=== PATIENT | male | born 1935 | race Caucasian/White ===

== ENCOUNTER 2022-11-07 10:23 | Outpatient (CLI) | payer MEDICARE, OTHER, SELFPAY ==
[2022-11-07 21:43] LABS: Albumin* 4.2 g/dL (3.3-5.0); Chloride* 106 mmol/L (96-114); Potassium* 4.5 mmol/L (3.6-5.1); Sodium* 142 mmol/L (135-149)
[2022-11-07 21:45] LABS: Carbon Dioxide* 30 mmol/L (20-32); Cholesterol* 167 mg/dL (90-199); Estimated Glomerular Filt Rate 74 ml/min
[2022-11-07 21:46] LABS: Alanine Aminotransferase* 18 U/L (4-50); Alkaline Phosphatase* 93 U/L (40-150); Aspartate Amino Transferase* 28 U/L (12-35); Bilirubin Total* 0.8 mg/dL (0.1-1.5); Blood Urea Nitrogen* 19 mg/dL (7-30); Calcium* 9.1 mg/dL (8.4-10.6); Glucose* 79 mg/dL (60-115); HDL Cholesterol* 60 mg/dL (>=40); LDL Cholesterol Calculated 89 mg/dL (<100); Total Protein* 6.9 g/dL (6.0-8.3); Triglycerides* 90 mg/dL (40-149)
[2022-11-07 22:30] LABS: Vitamin B12* 840 pg/mL (243-894)
== END 2022-11-07 10:24 | disposition home or self-care (01) ==
PROVIDERS: PCP Family Medicine; Visit Provider Family Medicine
DX: Z00.00 Encounter for general adult medical examination without abnormal findings (principal); E03.9 Hypothyroidism, unspecified; G54.1 Lumbosacral plexus disorders; M48.062 Spinal stenosis, lumbar region with neurogenic claudication; Z13.6 Encounter for screening for cardiovascular disorders
CPT/HCPCS: 80053; 80061; 82607; 84443

== ENCOUNTER 2023-05-01 11:31 | Outpatient (CLI) | payer MEDICARE, OTHER, SELFPAY | END 2023-05-01 11:32 | disposition home or self-care (01) | PROVIDERS: PCP Family Medicine; Visit Provider Family Medicine | DX: K51.90 Ulcerative colitis, unspecified, without complications (principal); K59.01 Slow transit constipation; M48.062 Spinal stenosis, lumbar region with neurogenic claudication | CPT/HCPCS: 80076; 84443 ==

== ENCOUNTER 2023-08-14 10:54 | Outpatient (CLI) | payer MEDICARE, OTHER, SELFPAY | END 2023-08-14 10:55 | disposition home or self-care (01) | PROVIDERS: PCP Family Medicine; Visit Provider Family Medicine | DX: Z00.00 Encounter for general adult medical examination without abnormal findings (principal); D64.9 Anemia, unspecified; E03.9 Hypothyroidism, unspecified; N40.1 Benign prostatic hyperplasia with lower urinary tract symptoms; R35.1 Nocturia; R53.83 Other fatigue; Z12.5 Encounter for screening for malignant neoplasm of prostate; Z13.21 Encounter for screening for nutritional disorder | CPT/HCPCS: 82306; 84153; 84443 ==

== ENCOUNTER 2023-08-30 22:22 | Outpatient (REF) | payer MEDICARE, OTHER, SELFPAY ==
[2023-08-30 23:25] LABS: Free T4 Free Thyroxine* 1.24 ng/dL (0.70-1.85)
[2023-08-30 23:57] LABS: Vitamin B12* 940 pg/mL (243-894)
[2023-09-01 20:34] LABS: Folate, Serum 16.2 ng/mL (>=5.9)
[2023-09-02 09:30] LABS: Homocysteine, Total 13 umol/L (0-15)
== END 2023-08-30 22:23 | disposition home or self-care (01) ==
LOC: NPINS 22:22
PROVIDERS: PCP Family Medicine; Visit Provider Psychiatry & Neurology Neurology
DX: Z00.00 Encounter for general adult medical examination without abnormal findings (principal); G20.A1 Parkinson's disease without dyskinesia, without mention of fluctuations; E03.9 Hypothyroidism, unspecified; D64.9 Anemia, unspecified; N40.1 Benign prostatic hyperplasia with lower urinary tract symptoms; R35.1 Nocturia; R53.83 Other fatigue
CPT/HCPCS: 82607; 82746; 83090; 83921; 84439; 84443

== ENCOUNTER 2023-09-18 12:43 | Outpatient (RCR) | payer MEDICARE, OTHER, SELFPAY ==
--- NOTE | 2023-09-19 15:46 | SLP.EVAL ---
Dr. Haro Please review, sign and return. Thank you Joanie Posadas, AUTOMOTIVE MANUFACTURER AUTOMOTIVE MANUFACTURER Eval AUTOMOTIVE MANUFACTURER Eval Start: 09/19/23 11:12 Freq: Status: Active Protocol: Document 09/18/23 11:12 Ernesto (Rec: 09/19/23 12:08 [facility] [id number]) E-signed By Joanie Posadas, YUSEF, AUTOMOTIVE MANUFACTURER AUTOMOTIVE MANUFACTURER System Review History & Reason For Referral Type of Speech Evaluation Voice Evaluation Rehabilitation Order Evaluation and Treat Date of Order 09/11/23 Reason for Referral Voice changes with Parkinson's Disease Medical Diagnosis Parkinson's Disease Treatment Diagnosis Dysphonia Medications Patient takes carbidopa/ levodopa 2 pills 3 times a day ; hydrocodone for knee and back pain. Hearing Information Hearing Status Patient is hard of hearing and wears bilateral hearing aids. Vision Information Vision Status Patient is wearing glasses. Patient Orientation Orientation & Mental Status within normal limits AUTOMOTIVE MANUFACTURER Initial Assessment/POC Subjective Information Subjective/Pain Comment Patient independently ambulated to the therapy room. He is pleasant and cooperative. Caregiver's Name Aminata - Assessment & Impression Assessment/Impression Patient is an 88 year old male referred for speech therapy, specifically LSVT LOUD due to changes in his voice secondary to Parkinson's Disease. He was diagnosed just a couple of weeks ago but has noticed changes over the past 5 years such as swallowing difficulty, voice changes, double vision, weakness, micrographia, and tremors (right hand). 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 He notices that people ask him to repeat himself frequently and that it is difficult for him to enter into a conversation as people don't hear him. He has also noticed some raspiness in his voice. ACOUSTIC MEASURES Sound pressure level (SPL, acoustic correlate of vocal loudness) measured with a sound level meter at a distance of 40cm from the patient's mouth during three voice and speech tasks revealed the following average vocal SPL numbers: Vowels - Average loudness 57dB ; Average phonation time 12 seconds Reading - Average loudness 67dB Conversation - Average loudness 61 dB PERCEPTUAL MEASURES: This clinician engaged in conversation with the patient from a distance of 2.5 feet in a quiet environment. Patient? s functional speech intelligibility was judged to be 100% but soft. SWALLOW: Patient has a history of dysphagia. He reports that he often aspirates on water and needs to thicken it. He sometimes gets the feeling of food sticking and has to cough it up. He recently completed a modified barium swallow study and from his report it sounds like he could have some pharyngeal residue with solids. He was given pharyngeal strengthening exercises but he reports that he wasn't very faithful about doing them. Patient presents with a mild- mod voice disorder including reduced loudness, raspy voice, decreased pitch variation, flat affect, decreased tongue an lip movement which contribute to an overall decrease in speech intelligibility. Based on stimulability testing, patient appears to be an excellent candidate for the LSVT LOUD program comprised of 16 intensive sessions (4 days a week for 4 weeks: one hour sessions) of voice treatment. Prognosis for improvement is excellent based on his motivation and family support. Functional Limitations & Outcome/Goals Goals/Functional Outcomes RESIDENTIAL GOAL Patient will improve coordination between the subsystems of respiration, phonation, and articulation for functional speech production with a variety of communication partners across environmental and situational contexts. SHORT TERM GOALS 1)Patient will increase vocal loudness to reach a target sound pressure level of >70dB with good vocal quality in structured word and sentence tasks 80% of the time. 2)Patient will increase vocal loudness to reach a target sound pressure level of >70dB with good vocal quality in paragraph reading tasks 80% of the time. 3)Patient will increase vocal loudness to reach a target sound pressure level of >70dB with good vocal quality in conversation 80% of the time. Intervention Plan & Frequency Frequency 4x Per Week Duration 4 Weeks Discharge Plan Patient Will be Discharged from Therapy Completion of LTG(s),Skills Plateau,Independently Progressing Therapist Signature & License # I Certify That Therapy Services Provided, Therapy Plan Established Therapist Signature & License Number Joanie Posadas [facility]-AUTOMOTIVE MANUFACTURER, # [id number] Certification Date Date of First Visit for Therapy 09/18/23 Clinic Certification # #[id number] Recertification Due Date 12/16/23 Physician Signature Signature of Physician Indicates Treatment Plan,Certification Plan,Medically Needed Services Physician Signature & Date Required Please Sign/Date Here Speech/Language Pathology Billing Units Billing Units Eval Speech Voice/Resonance 1
== END 2024-01-16 23:59 | disposition home or self-care (01) ==
PROVIDERS: PCP Family Medicine; Visit Provider Otolaryngology
DX: G20.A1 Parkinson's disease without dyskinesia, without mention of fluctuations (principal); R49.0 Dysphonia; R47.9 Unspecified speech disturbances; Z51.89 Encounter for other specified aftercare
CPT/HCPCS: 92524

== ENCOUNTER 2023-11-08 14:17 | Outpatient (CLI) | payer MEDICARE, OTHER, SELFPAY ==
[2023-11-08 15:18] LABS: PCR FLU A Negative PCR FLU A (Negative); PCR FLU B Negative PCR FLU B (Negative); PCR RSV Negative PCR RSV (Negative); SARS PCR* Negative SARS-CoV-2 (Negative)
== END 2023-11-08 14:18 | disposition home or self-care (01) ==
LOC: LKVREF 14:33
PROVIDERS: PCP Family Medicine; Visit Provider Emergency Medicine
DX: R07.81 Pleurodynia (principal)
CPT/HCPCS: 87631

== ENCOUNTER 2024-04-04 14:25 | Outpatient (CLI) | payer MEDICARE, OTHER, SELFPAY | END 2024-04-04 14:26 | disposition home or self-care (01) | PROVIDERS: PCP Family Medicine; Visit Provider Family Medicine | DX: R53.83 Other fatigue (principal); E03.9 Hypothyroidism, unspecified; R63.0 Anorexia; G89.29 Other chronic pain; G20.A1 Parkinson's disease without dyskinesia, without mention of fluctuations; M48.062 Spinal stenosis, lumbar region with neurogenic claudication; K51.90 Ulcerative colitis, unspecified, without complications | CPT/HCPCS: 80053; 84443 ==

== ENCOUNTER 2024-08-05 08:38 | Outpatient (CLI) | payer MEDICARE, OTHER, SELFPAY | END 2024-08-05 08:39 | disposition home or self-care (01) | LOC: NFLDREF 08-07 12:59 | PROVIDERS: PCP Family Medicine; Referring Provider Family Medicine; Visit Provider Family Medicine | DX: R35.1 Nocturia (principal); N40.1 Benign prostatic hyperplasia with lower urinary tract symptoms; R53.83 Other fatigue; D64.9 Anemia, unspecified; Z12.5 Encounter for screening for malignant neoplasm of prostate | CPT/HCPCS: 80053; G0103 ==

== ENCOUNTER 2024-11-13 11:41 | Emergency (ER) | payer MEDICARE, OTHER, SELFPAY ==
--- OUTSIDE RECORDS SUMMARY | 2024-11-13 11:45 | XMS_ITS | Clinical Summary ---
Author Organization [place] Address [address] [facility] [place] [address] Care Team Providers Care Taping Foreman Name Role Phone Fito Young MD Primary Care Provider [phone] Allergies No known active allergies Medications calcium carbonate (OS-MARY 500 MG [place]. [place]) 500 MG tablet Take 500 mg by mouth daily Active mesalamine (PENTASA) 500 MG CPCR CR capsule Take 1,000 mg by mouth At Bedtime Active mesalamine (PENTASA) 500 MG CPCR CR capsule Take 1,000 mg by mouth every morning Active latanoprost (XALATAN) 0.005 % ophthalmic solution Place 1 drop into both eyes daily Active calcium carbonate-vitam in D (OSCAL W/D) 500-200 MG-UNIT tablet Take 1 tablet by mouth daily Takes a powder version of this Active psyllium (METAMUCIL) 58.6 % packet Take 1 packet by mouth daily Active levothyroxine (SYNTHROID/LEVO THROID) 25 MCG tablet Take 25 mcg by mouth daily Active cycloSPORINE (RESTASIS OP) Apply to eye 2 times daily Active Active Problems Problem Noted Date Diagnosed Date Small bowel obstruction 11/09/2020 SBO (small bowel obstruction) 07/18/2015 Encounters Date Type Department Care Team Description 11/06/2024 Transcribe Orders GENERIC EXTERNAL DATA DEPARTMENT Rajani White MD Oropharyngeal dysphagia (Primary Dx) from Last 3 Months Family History Medical History Relation Comments Lung Cancer Brother Cancer Maternal Grandfather Stomach Cancer Maternal Grandmother Ovarian Cancer Mother Relation Status Comments Brother Father Maternal Grandfather Maternal Grandmother Mother Paternal Grandfather Paternal Grandmother Social History Tobacco Use Types Packs/Day Years Used Date Smoking Tobacco: Former Cigarettes Q uit: 07/18/1962 Smokeless Tobacco: Never Alcohol Use Standard Drinks/Week Comments Yes 0 (1 standard drink = 0.6 oz pur e alcohol) occa Adolescent Education Answer Date Record ed Getting School Help Needed Not on file 07/22 Sex and Gender Information Value Date Recorded Sex Assigned at Male 03/05/2021 10:40 AM CDT Legal Sex Male 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 Gender Identity Male 03/05/2021 10:40 AM CDT Sexual Orientation Straight 03/17/2021 9: 59 AM CDT Last Filed Vital Signs Vital Sign Reading Time Taken Comments Blood Pressure 123/71 04/29/2022 12:15 AM CDT Pulse 89 04/28/2022 9:15 PM CDT Temperature 36.3 C (97.4 F) 04/28/2022 11:05 PM CDT Respiratory Rate 18 04/28/2022 7:24 PM CDT Oxygen Saturation 97% 04/28/2022 10:45 PM CDT Inhaled Oxygen Concentration - - Weight 73 kg (161 lb) 04/28/2022 7:24 PM CDT Height 175.3 cm (5' 9) 03/25/2021 9:40 AM CDT Body Mass Index 23.78 03/25/2021 9:40 AM CDT Plan of Treatment Upcoming Encounters Date Type Department Care Team (Late st Contact Info) Description 12/12/2024 11:00 AM SALES FORCE DEVELOPER Appointment [facility] [address] [place] [phone] Rajani White MD [facility] [address] [address] [place] [address] 12/12/2024 11:00 AM SALES FORCE DEVELOPER Appointment [facility] [address] [place] [phone] Rajani White MD [facility] [address] [address] [place] [address] Health Maintenance Due Date Last Done Comments ANNUAL REVIEW OF HM ORDERS 1937 TSH W/FREE T4 REFLEX 1937 FALL RISK ASSESSMENT 2002 MEDICARE ANNUAL WELLNESS VISIT 2002 RSV VACCINE (1 - 1-dose 75+ series) 2012 COVID-19 Vaccine ( season) 2024 07/05/2024, 07/20/2023, 03/21/2023, Additional history exists PHQ-2 (once per calendar year) 2024 ADVANCE CARE PLANNING 12/02/2025 12/02/2020, 018 DTAP/TDAP/TD IMMUNIZATION (3 - Td or Tdap) 09/09/2031 09/09/2021, 03/15/2011 ZOSTER IMMUNIZATION Completed 08/14/2023, 9 INFLUENZA VACCINE Completed 07/05/2024, , 07/14/2022, Additional history exists Pneumococcal Vaccine: 50+ Years Completed 08/12/2024, 12/21/2015, 04/01/2013 HPV IMMUNIZATION Aged Out No longer e ligible based on patient's age to complete this topic MENINGITIS IMMUNIZATION Aged Out No l onger eligible based on patient's age to complete this topic RSV MONOCLONAL ANTIBODY Aged Out No l onger eligible based on patient's age to complete this topic Insurance MEDICARE [facility] Advance Directives For more information, please contact: [phone] * Full Code (Latest Code Status on File) Date Activated Date Inactivated Comments 11/12/2020 9:16 AM 03/25/2021 9:15 AM Question Answer Comments Code status determined by: Discussion with patie nt/ legal decision maker * No CPR- Do NOT Intubate Date Activated Date Inactivated Comments 11/09/2020 10:12 PM 11/12/2020 9:16 AM NO basic or advanced life-sustaining interventions are performed Question Answer Comments Code status determined by: Discussion with patie nt/ legal decision maker * Full Code Date Activated Date Inactivated Comments 11/09/2020 9:59 PM 11/09/2020 10:12 PM All basic a nd advanced life-sustaining interventions are performed as appropriate Question Answer Comments Code status determined by: Discussion with patie nt/ legal decision maker * Full Code Date Activated Date Inactivated Comments 05/29/2018 12:30 PM 11/09/2020 7:45 PM * Full Code Date Activated Date Inactivated Comments 05/25/2018 10:31 PM 05/29/2018 12:30 PM Care Teams Taping Foreman Relationship Specialty Start Date End Date Fito Young MD [facility] [address] [place] [address] PCP - General Family Medicine 11/10/20
--- OUTSIDE RECORDS SUMMARY | 2024-11-13 11:45 | XMS_ITS | Clinical Summary ---
Author Organization [facility] Address [place], [place] [address] Care Team Providers Care Service Sprinkler Helper Name Role Phone Marcus Mccoy MD Primary Care Provider [phone] Allergies No known active allergies Medications glucosamine-cho ndroitin, 500-400 mg, (COSAMIN DS 500/400) 500-400 mg cap Take 1 capsule by mouth. Active latanoprost (XALATAN) 0.005 % ophthalmic solution Daily Active levothyroxine (SYNTHROID) 25 mcg tablet Daily 10/22/2019 Active PENTASA 500 mg Extended-releas e capsule TAKE 4 CAPSULES BY MOUTH IN THE MORNING AND 3 CAPSULES IN THE EVENING 09/03/2020 Active Social History Tobacco Use Types Packs/Day Years Used Date Smoking Tobacco: Never Smokeless Tobacco: Never Social Connections Answer Date Recorded Frequency of Communication with Friends and Fami ly Not on file 10/08/2021 Financial Resource Strain Answer Date R ecorded Difficulty of Paying Living Expenses Not on file 10/08/2021 Difficulty of Paying Living Expenses Not on file 10/08/2021 Sex and Gender Information Value Date Recorded Sex Assigned at Not on file Legal Sex Male 8:42 AM ACQUISITION PROFESSIONAL Gender Identity Not on file Sexual Orientation Not on file Obstetrics History Last Filed Vital Signs Vital Sign Reading Time Taken Comments Blood Pressure 112/71 09/06/2020 1:20 PM ACQUISITION PROFESSIONAL Pulse 80 09/06/2020 1:20 PM ACQUISITION PROFESSIONAL Temperature - - Respiratory Rate - - Oxygen Saturation - - Inhaled Oxygen Concentration - - Weight 79.4 kg (175 lb) 09/06/2020 1:20 PM ACQUISITION PROFESSIONAL Height 175.3 cm (5' 9) 09/06/2020 1:20 PM ACQUISITION PROFESSIONAL Body Mass Index 25.84 09/06/2020 1:20 PM ACQUISITION PROFESSIONAL Plan of Treatment Health Maintenance Due Date Last Done Comments Tdap 1948 Depression screening for age 12+ 1949 Tetanus booster 1957 Pneumococcal series for age 50+ (1 of 1 - PCV) 987 Zoster (shingles) series for age 50+ (1 of 2) 07/30/19 87 Medicare Wellness for age 65+ 2002 RSV vaccine for adults or pr egnancy (1 - 1-dose 75+ series) 2012 BMI (ht and wt on same day) for age 18+ 09/06/2021 1 11/06/2019 COVID-19 vaccine series (2023- season) Influenza for age 65+ 06/15/2024 Insurance MEDICARE PB ONLY COMMERCIAL Care Teams Service Sprinkler Helper Relationship Specialty Start Date End Date Marcus Mccoy MD PCP - General Family Practice 09/06/20
--- OUTSIDE RECORDS SUMMARY | 2024-11-13 11:45 | XMS_ITS | Referral Summary ---
Author Organization [place] Address [address] [facility] [place] [address] Care Team Providers Care Crown Assembly Machine Operator Name Role Phone Fito Young MD Primary Care Provider [phone] Encounters Date Type Department Care Team Description 11/06/2024 Transcribe Orders GENERIC EXTERNAL DATA DEPARTMENT Rajani White MD Oropharyngeal dysphagia (Primary Dx) from Last 3 Months Allergies No known active allergies Medications calcium carbonate (OS-MARY 500 MG [place]. [place]) 500 MG tablet Take 500 mg [...] obstruction 11/09/2020 SBO (small bowel obstruction) 07/18/2015 Social History Tobacco Use Types Packs/Day Years [...] AM CDT Legal Sex Male 4:19 AM HAND HARDENER Gender Identity Male 03/05/2021 10:40 AM CDT [...] st Contact Info) Description 12/12/2024 11:00 AM HAND HARDENER Appointment [facility] [address] [place] [phone] Rajani White MD [facility] [address] [address] [place] [address] 12/12/2024 11:00 AM HAND HARDENER Appointment [facility] [address] [facility] [place] [phone] Rajani White MD [facility] [address] [address] [place] [address] Insurance MEDICARE [employer] Advance Directives For more information, please contact: [phone] * Full Code (Latest Code Status on [...] 10:31 PM 05/29/2018 12:30 PM Care Teams Crown Assembly Machine Operator Relationship Specialty Start Date End Date Fito Young MD [facility] [address] [place] [address] PCP - General Family Medicine 11/10/20
--- OUTSIDE RECORDS SUMMARY | 2024-11-13 11:45 | XMS_ITS | Encounter Summary ---
Author Organization [place] Address [facility] [place] [address] Care Team Providers Care Pneumatic Systems Operator Name Role Phone Fito Young MD Primary Care Provider [phone] Reason for Referral * Diagnostic Imaging XR (Routine) - Pending Review Specialty Diagnoses / Procedures [facility] Referred To Contact Radiology. Diagnoses Oropharyngeal dysphagia Procedures XR Video Swallow with ELECTRIC PILE DRIVER OPERATOR or OT Rajani White MD [facility] [address] [address] [place] [address] Phone: tel: fax: Referral ID Status Reason Start Date Expiration Date V isits Requested Visits Authorized [id number] Pending Review 11/06/2024 11/06/2025 1 1 MENT MANAGER * Therapeutic Services (Routine) - Pending Review Specialty Diagnoses / Procedures Referred By Wanda sandhu Referred To Contact Diagnoses Oropharyngeal dysphagia Rajain White MD [facility] [address] [address] [place] [address] Phone: tel: fax: Referral ID Status Reason Start Date Expiration Date V isits Requested Visits Authorized [id number] Pending Review 11/06/2024 11/06/2025 1 1 Question Answer Course of Action: Evaluation and Treatment Speech Treatment Diagnosis: Dysphagia Specialty Services: Video Swallow Study Patient Scheduling Instructions: [facility] will call you to coordinate your care as prescribed by your provider. If you don't hear from a sales representative education courses within 2 business days, please call . Comments Please be aware that coverage of these services is subject to the terms and limitations of your health insurance plan. Call member services at your health plan with any benefit or coverage questions. [facility] will call you to coordinate your care as prescribed by your provider. If you don't hear from a sales representative education courses within 2 business days, please call . MENT MANAGER Encounter Details Date Type Department Care Team (Late st Contact Info) Description 11/06/2024 Transcribe Orders GENERIC EXTERNAL DATA DEPARTMENT Rajani White MD [facility] [address] [address] [place], [place] [address] Oropharyngeal dysphagia (Primary Dx) Social History Tobacco Use Types Packs/Day Years [...] AM CDT Legal Sex Male 4:19 AM DOCUMENT MANAGER Gender Identity Male 03/05/2021 10:40 AM CDT Sexual Orientation Straight 03/17/2021 9: 59 AM CDT documented as of this encounter Plan of Treatment Upcoming Encounters Date Type Department Care Team (Late st Contact Info) Description 12/12/2024 11:00 AM DOCUMENT MANAGER Appointment [facility] [address] [place] [address] Rajani White MD [facility] [address] [address] [place] [address] 12/12/2024 11:00 AM DOCUMENT MANAGER Appointment [facility] [address] [place] [address] Rajani White MD [facility] [address] [address] [place] [address] Scheduled Orders Name Type Priority Associated Diagnoses Orde r Schedule XR Video Swallow with ELECTRIC PILE DRIVER OPERATOR or OT Imaging Routine Oropharyngeal dysphagia Expected: 11/06/2024 (Approximate), Expires: 11/06/2025 Scheduled Referrals Name Type Priority Associated Diagnoses Orde r Schedule Speech Therapy Fine Arts Model Referral Referral Routine Oropharyngeal dysphagia Ordered: 11/06/2024 documented as of this encounter Visit Diagnoses Diagnosis Oropharyngeal dysphagia- Primary Dysphagia, oropharyngeal phase documented in this encounter Care Teams Pneumatic Systems Operator Relationship Specialty Start Date End Date Fito Young MD [facility] [address] [place] [address] PCP - General Family Medicine 11/10/20 documented as of this encounter
[2024-11-13 12:11] VITALS: BP 91/46; PULSE 89; RESP 16; TEMP 36.8; O2SAT 96; BMI 23.9
--- NOTE | 2024-11-13 13:08 | ED.GENADULT ---
HPI - General Adult General Date Seen: 11/13/24 Chief complaint: Weakness Stated complaint: weakness/lightheaded Time Seen by Provider: 11/13/24 13:07 History of Present Illness HPI narrative: 89-year-old male with a past medical history of ulcerative colitis, Parkinson's disease (generally mild and well controlled, follows with [facility], Dr. Gomez), hypothyroidism, spinal stenosis, bradycardia , GERD, neuropathy, chronic pain on hydrocodone, chronic constipation (manages with oral meds at home) presenting to the ER today with his for concern for generalized weakness. He has been doing well lately. Yesterday around noon he started to get a little bit weak but in the afternoon he went to his pool to do his normal swimming. He tries to swim 3 days a week to maintain strength and energy. Once he was in the pool he felt very weak and unsteady. He was so weak he could not get himself out of the pool and required assistance to climb out. He was able to go home after the pull but was very weak and tired yesterday evening. He went to bed early. He says he slept for 15 hours. His notes that she did help him get up to try to get him to eat supper but he really was not hungry. He did not drink as much water as normal either. Overnight he did develop some cough. Nonproductive. This morning he woke up he is last week then yesterday but is still quite weak and feeling unsteady. He had a fever up to 101 at home but took Tylenol for it. He was not febrile at triage here. Still a mild cough today. Not super prominent at really not even rib realized it. He does have very mild sore throat. He has a poor appetite. No nausea or vomiting. No abdominal pain. He has not had any bowel movements today. Urination he says is been normal. No rash. He is bit unsteady but no falls. No focal numbness or weakness. No headache. Related Data Home Medications ?Medication ?Instructions ?Recorded ?Confirmed calcium 260 mg (phos,tribasic)-D3 1 tab PO QDAY 06/27/22 11/13/24 25 mcg-herbal 50 mg chewable tablet (Alive Calcium-Vitamin D3) latanoprost 0.005 % eye drops 1 drp ophthalmic (eye) DAILY 06/27/22 11/13/24 naloxegol 25 mg tablet (Movantik) 25 mg PO QAM 02/19/24 11/13/24 budesonide-formoterol HFA 80 2 puff inhalation BID PRN 04/04/24 11/13/24 mcg-4.5 mcg/actuation aerosol inhaler (Symbicort) amantadine HCl 100 mg capsule 100 mg PO QDAY 07/04/24 11/13/24 carbidopa 25 mg-levodopa 100 mg 1 tab PO 3XD 07/04/24 11/13/24 tablet duloxetine 60 mg capsule,delayed 60 mg PO QDAY 08/04/24 11/13/24 release (Cymbalta) Previous Rx's ?Medication ?Instructions ?Recorded bisacodyl 10 mg rectal suppository 10 mg MS QDAY PRN constipation #50 06/27/22 (Dulcolax (bisacodyl)) ea tamsulosin 0.4 mg capsule 0.4 mg PO DAILY #90 caps 01/03/24 mupirocin 2 % topical ointment 1 applic topical TID #15 grams 01/16/24 levothyroxine 25 mcg tablet 25 mcg PO DAILY #90 tabs 07/04/24 linaclotide 145 mcg capsule 145 mcg PO QAM #90 caps 07/04/24 (Linzess) omeprazole 20 mg capsule,delayed 20 mg PO QDAY #90 caps 08/12/24 release pregabalin 50 mg capsule (Lyrica) 50 mg PO BID #180 caps 08/12/24 hydrocodone 5 mg-acetaminophen 325 1 tab PO Q4-6H PRN pain #60 tabs 11/13/24 mg tablet nirmatrelvir 300 mg (150 mg See Rx Instructions PO .COMPLEX 11/13/24 x2)-ritonavir 100 mg tablet,dose #30 ea pack (Paxlovid) Allergies Allergy/AdvReac Type Severity Reaction Status Date / Time No Known Drug Allergies Allergy Verified 11/13/24 12:21 [facility] Medical History Fatigue ?R53.83 - Other fatigue (ICD-10) Enrolled in chronic care management ?Z78.9 - Other specified health status (ICD-10) Surgical History History of microdiscectomy ?Z98.890 - Other specified postprocedural states (ICD-10) History of colonoscopy ?Z98.890 - Other specified postprocedural states (ICD-10) Social History Smoking Status: Never smoker How often do you have a drink containing alcohol: never AUDIT-C Alcohol total score: 0 Non-prescribed substance use: denies use Exam Narrative: Exam Narrative: Constitutional: Appears well-developed and well-nourished. Alert. Conversant, but somewhat hard of hearing. Non toxic. HENT: Head: Atraumatic. Nose: Nose normal. Mouth/Throat: Oral mucosa is clear , with ET but dry. Not desiccated a cracked. . no trismus. Pharynx mildly erythematous. Tonsils symmetric. No tonsillar enlargement, erythema, or exudate. Eyes: Conjunctivae normal. EOM normal. Pupils equal, round, and reactive to light. No scleral icterus. Neck: Normal range of motion. Neck supple. No tracheal deviation present. Cardiovascular: Normal rate, regular rhythm. No gallop. No friction rub. No murmur heard. Symmetric radial artery pulses Pulmonary/Chest: Effort normal. No stridor. No respiratory distress. No wheezes. Fever subtle bibasilar rales. No rhonchi . No tenderness. Abdominal: Soft. Bowel sounds normal. No distension. No mass. No tenderness. No rebound. No guarding. No CVA tenderness Musculoskeletal: RUE: Normal range of motion. No tenderness. No deformity LUE: Normal range of motion. No tenderness. No deformity RLE: Normal range of motion. No edema. No tenderness. No deformity LLE: Normal range of motion. No edema. No tenderness. No deformity Neurological: Alert and oriented to person, place, and time. Normal strength. CN II-VII intact. No sensory deficit. GCS eye subscore is 4. GCS verbal subscore is 5. GCS motor subscore is 6. Normal coordination Skin: Skin is warm and dry. No rash noted. No pallor. Normal capillary refill. Psychiatric: Normal mood. Normal affect. Const: Vital Signs, click to edit/add: Vital Signs - 24 hr 11/13/24 12:11 11/13/24 14:48 Temperature 98.3 F 97.4 F L Pulse Rate [Pulse Oximeter] 89 73 Respiratory Rate 16 18 Blood Pressure [Ri ght Upper Arm] 91/46 L 130/93 H Pulse Oximetry 96 97 Oxygen Delivery Me thod Room Air Room Air Course Vital Signs Vital signs: Initial Vital Signs Temperature 98.3 F 11/13/24 12:11 Temperature Source Temporal Artery Scan 11/13/24 12:11 Pulse Rate 89 11/13/24 12:11 Respiratory Rate 16 11/13/24 12:11 Blood Pressure 91/46 L 11/13/24 12:11 Blood Pressure Mean 61 L 11/13/24 12:11 Blood Pressure Position Sitting 11/13/24 12:11 Pulse Oximetry 96 11/13/24 12:11 Oxygen Delivery Method Room Air 11/13/24 12:11 Vital Signs Temperature 98.3 F 11/13/24 12:11 Pulse Rate 89 11/13/24 12:11 Respiratory Rate 16 11/13/24 12:11 Blood Pressure 91/46 L 11/13/24 12:11 Pulse Oximetry 96 11/13/24 12:11 Oxygen Delivery Method Room Air 11/13/24 12:11 Temperature 97.4 F L 11/13/24 14:48 Pulse Rate 73 11/13/24 14:48 Respiratory Rate 18 11/13/24 14:48 Blood Pressure 130/93 H 11/13/24 14:48 Pulse Oximetry 97 11/13/24 14:48 Oxygen Delivery Method Room Air 11/13/24 14:48 Medications Administered Medications: Discontinued Medications Generic Name Dose Route Start Last Admin Trade Name Freq PRN Reason Stop Dose Admin Sodium Chloride 1,000 mls @ 1,000 mls/hr 11/13/24 13:30 11/13/24 15:42 0.9 % Sodium Chloride 1000 Ml IV 11/13/24 14:29 Infused .Q1H LENNIE Infusion Medical Decision Making MDM Narrative Medical decision making narrative: Very pleasant 89-year-old gentleman with history of Parkinson's disease, well controlled, presenting from with his from home for evaluation of generalized weakness, decreased energy, which began yesterday afternoon just before he went to do his normal exercise at the pool. Along with that he has had a bit of a cough that started overnight and had a temperature of 101? F this morning. He had taken Tylenol at home so was not febrile at the time of triage here in the ER. 1. Neuro. Has a history of Parkinson's. Weakness is nonfocal. Could be a progression of Parkinson's but overall rapid changed yesterday afternoon would suggest another superimposed illness. Given nonfocal nature of the weakness, stroke is thought to be less likely. Noncontrast head CT is obtained and does not show any evidence for intracranial hemorrhage, hydronephrosis. At this point I do not think he needs brain MRI given absence of any focal stroke symptoms. 2. Cardiac. Patient has a history of bradycardia. No pacemaker. Has a sinus rhythm in the 70s here in the ER. No chest pain. EKG nonischemic. Troponin screening for an atypical presentation of ACS is normal. Chest x-ray negative for a pulmonary edema or CHF. 3. Renal/electrolytes. Kidney function normal. Sodium potassium normal. 4. Infectious disease. With weakness since yesterday and fever and cough overnight consider infectious etiology. Chest x-ray negative for any obvious pneumonia. Urinalysis normal. Blood culture pending. His hemodynamically stable . No evidence for septic shock. PCR is positive for coronavirus which could explain his symptoms. White count normal at 6.9. Differential does show 25% lymphs and 70% monos. 56% neutrophils. This could be consistent with a viral syndrome such as COVID. Will need treatment for coronavirus given his age and comorbidities. In reviewing his medication lis, there is a potential interaction between Paxlovid and hydrocodone (causing increased hydrocodone). Also attention severe interaction between Paxlovid and Naloxegol. Patient will have to avoid Naloxegol while on Paxlovid. Also will have to avoid tamsulosin while on Paxlovid. Initial blood pressure was low normal at 91/46. After bolus of IV fluid blood pressure up to 130/93. 5. Pulmonary. Patient is not short of breath. Oxygen normal. No wheezing or bronchospasm to suggest asthma/COPD 6. Disposition. Presented with significant nonfocal weakness and unsteadiness. He has reports feeling much better after IV fluids. We discussed options for managing his COVID including admission for ongoing hydration and nursing supportive care. However he is feeling much better and requested discharge home with his family. I think that is reasonable. Precautions for return to the ER reviewed. Lab Data Labs: Lab Results 11/13/24 11/13/24 11/13/24 Range/Units 13:28 13:46 14:33 WBC 6.92 (4.50-11.00) K/uL RBC 4.09 L (4.30-5.90) m/uL Hgb 13.1 L (13.5-17.5) gm/dL Hct 40.9 (37.0-53.0) % MCV 100 (80-100) fL MCH 32 (26-34) pg MCHC 32 (32-36) gm/dL RDW Coeff of Jaimie 13.2 (11.5-15.5) % Plt Count 167 (140-440) K/uL Neut % (Auto) 56.7 (42.0-72.0) % Lymph % (Auto) 25.1 (20-44) % [place] % (Auto) 17.6 H (0.0-11.0) % Eos % (Auto) 0.3 (0.0-7.0) % Baso % (Auto) 0.3 (0.0-3.0) % Neut # (Auto) 3.92 (1.7-7.0) K/uL Lymph # (Auto) 1.74 (0.90-2.90) K/uL [place] # (Auto) 1.20 H (0.00-0.90) K/UL Eos # (Auto) 0.02 (0.00-0.50) K/uL Baso # (Auto) 0.02 (0.00-0.30) K/uL Abs Immat Gran (auto) 0.00 (0.00-0.30) K/uL Imm/Tot Granulo (auto) 0.0 % Sodium 137 (135-149) mmol/L Potassium 4.2 (3.6-5.1) mmol/L Chloride 105 (96-114) mmol/L Carbon Dioxide 26 (20-32) mmol/L Anion Gap 6 L (7-15) mEq/L BUN 25 (7-30) mg/dL Creatinine 0.9 (0.5-1.5) mg/dL Estimated Creat Clear 50.35 Estimated GFR 83 ml/min Glucose 83 (60-115) mg/dL Lactate 0.9 (0.5-1.9) mmol/L Calcium 8.7 (8.4-10.6) mg/dL Total Bilirubin 0.7 (0.1-1.5) mg/dL AST 49 H (12-35) U/L ALT 11 (4-50) U/L Alkaline Phosphatase 121 (40-150) U/L Total Protein 7.4 (6.0-8.3) g/dL Albumin 4.3 (3.3-5.0) g/dL Urine Color Sara A (Yellow) Urine Appearance Clear (Clear) Urine pH 5.5 (5.0-8.5) Ur Specific Marceline >= 1.030 (1.000-1.030) Urine Protein 2+ A (Negative) Urine Glucose (UA) Negative (Negative) Urine Ketones Negative (Negative) Urine Blood Negative (Negative) Urine Nitrite Negative (Negative) Urine Bilirubin Negative (Negative) Urine Urobilinogen 0.2 (0.2-1.0) Ur Leukocyte Esterase Negative (Negative) Urine RBC 0-2 (0-2) Urine WBC 0-2 (0-5) Ur Squamous Epith Cells None (None-Few) Urine Bacteria None (None) SARS-CoV-2 (PCR) POSITIVE SARS-CoV-2 A (Negative) Influenza Type A (PCR) Negative PCR FLU A (Negative) Influenza Type B (PCR) Negative PCR FLU B (Negative) RSV (PCR) Negative PCR RSV (Negative) POC Troponin I 0.00 L (0.01-0.04) ng/ml Imaging Data Chest x-ray: Attestation: I have reviewed the pertinent imaging results. My impression: No acute infiltrate Radiologist's impression: IMPRESSION: Bibasal linear opacities are likely reflect atelectasis, however superimposed pneumonia is difficult to exclude CT scan - head: Attestation: I have reviewed the pertinent imaging results. Radiologist's impression: IMPRESSION: 1. No CT evidence of acute intracranial abnormality. 2. Mild generalized cerebral volume loss and mild-moderate chronic microangiopathy changes. 3. Nonspecific layering secretions in the sphenoid sinuses. ECG Data Attestation: I personally reviewed and interpreted this ECG as follows: Interpretation: Normal sinus rhythm Rate: 74 MS: 150 QRS axis: Normal ST segment/T wave: No ST segment elevation or depression QTc: 435 Discharge Plan Discharge Clinical Impression: COVID-19, Weakness Patient Disposition: Home, Self-Care Condition: Stable Instructions: Weakness (ED), COVID-19 (Coronavirus Disease 2019) (ED) Additional Instructions: As we discussed, start him Paxlovid this afternoon. While you are on Paxlovid, decrease your dose of hydrocodone. Do not take tamsulosin (Flomax) or Naloxoegol (Movantik) while you are on Paxlovid Drink plenty of fluids. Try to stay hydrated. Rest. Normal lack activity is okay. Return to the ER right away if you have worsening trouble breathing, low oxygen levels, uncontrolled nausea or dehydration, worsening weakness, confusion, or any concerns. Please follow-up with your regular doctor in 5-7 days for a recheck. Remember, if you get worse, come back to ER right away. Prescriptions: New Paxlovid 300 mg (150 mg x 2)-100 mg tablets,dose pack See Rx Instructions .ROUTE .COMPLEX Qty: 30 0RF Rx Instructions: take TWO 150 mg tablets of nirmatrelvir with ONE 100 mg tablet of ritonavir twice daily for 5 days No Action tamsulosin 0.4 mg capsule 0.4 mg PO DAILY Qty: 90 3RF budesonide-formoterol [Symbicort] 80-4.5 mcg/actuation HFA aerosol inhaler 2 puff inhalation BID PRN latanoprost 0.005 % drops 1 drp ophthalmic (eye) DAILY Alive Calcium-Vitamin D3 260 mg calcium- 25 mcg-50 mg tablet,chewable 1 tab PO QDAY bisacodyl [Dulcolax (bisacodyl)] 10 mg suppository 10 mg MS QDAY PRN (Reason: constipation) Qty: 50 3RF mupirocin 2 % ointment 1 applic topical TID Qty: 15 0RF levothyroxine 25 mcg tablet 25 mcg PO DAILY Qty: 90 3RF Linzess 145 mcg capsule 145 mcg PO QAM Qty: 90 3RF amantadine HCl 100 mg capsule 100 mg PO QDAY carbidopa-levodopa 25-100 mg tablet 1 tab PO 3XD omeprazole 20 mg capsule,delayed release(DR/EC) 20 mg PO QDAY Qty: 90 0RF pregabalin [Lyrica] 50 mg capsule 50 mg PO BID Qty: 180 1RF Movantik 25 mg tablet 25 mg PO QAM Rx Instructions: must be taken on empty stomach; no food 1 hr after or 2-3 hrs before dose duloxetine [Cymbalta] 60 mg capsule,delayed release(DR/EC) 60 mg PO QDAY hydrocodone-acetaminophen 5-325 mg tablet 1 tab PO Q4-6H PRN (Reason: pain) Qty: 60 0RF Patient Comments: Take 0.5 tab tid Follow Up/Referrals: Fito Young MD [Primary Care Provider] - Stand Alone Forms: MyHealth Info Instructions
[2024-11-13 13:57] LABS: Basophils Absolute Auto 0.02 K/uL (0.00-0.30); Basophils Percent Auto 0.3 % (0.0-3.0); Eosinophils Absolute Auto 0.02 K/uL (0.00-0.50); Eosinophils Percent Auto 0.3 % (0.0-7.0); Hematocrit 40.9 % (37.0-53.0); Hemoglobin* 13.1 gm/dL (13.5-17.5); Lactate Sepsis w/Reflex* 0.9 mmol/L (0.5-1.9); Lymphocytes Absolute Auto 1.74 K/uL (0.90-2.90); Lymphocytes Percent Auto 25.1 % (20-44); Mean Corpuscular HGB Conc 32 gm/dL (32-36); Mean Corpuscular Hemoglobin 32 pg (26-34); Mean Corpuscular Volume 100 fL (80-100); Monocytes Percent Auto 17.6 % (0.0-11.0); Neutrophils Absolute Auto 3.92 K/uL (1.7-7.0); Neutrophils Percent Auto 56.7 % (42.0-72.0); Platelet Count* 167 K/uL (140-440); RDW Coefficient of Variation % 13.2 % (11.5-15.5); Red Blood Count 4.09 m/uL (4.30-5.90); White Blood Count* 6.92 K/uL (4.50-11.00)
[2024-11-13 14:02] LABS: Slide Review Reflex No
[2024-11-13 14:12] LABS: Albumin* 4.3 g/dL (3.3-5.0); Chloride* 105 mmol/L (96-114); Potassium* 4.2 mmol/L (3.6-5.1); Sodium* 137 mmol/L (135-149)
[2024-11-13 14:15] LABS: Alanine Aminotransferase* 11 U/L (4-50); Alkaline Phosphatase* 121 U/L (40-150); Anion Gap 6 mEq/L (7-15); Aspartate Amino Transferase* 49 U/L (12-35); Bilirubin Total* 0.7 mg/dL (0.1-1.5); Blood Urea Nitrogen* 25 mg/dL (7-30); Calcium* 8.7 mg/dL (8.4-10.6); Carbon Dioxide* 26 mmol/L (20-32); Creatinine* 0.9 mg/dL (0.5-1.5); Est. Creatinine Clearance* 50.35; Estimated Glomerular Filt Rate 83 ml/min; Glucose* 83 mg/dL (60-115); Total Protein* 7.4 g/dL (6.0-8.3)
--- OUTSIDE RECORDS SUMMARY | 2024-11-13 14:20 | XMS_ITS | Continuity of Care Document ---
Author Organization Z [facility] Address [address] [place] [address] Phone Care Team Providers Care Manager Of Financial Name Role Phone Unavailable Unavailable Unavailable Allergies, Adverse Reactions, Alerts Substance Reaction Status Criticality codeine Stomach Pain Active No Information Medications Medication Instructions Dosage Effective Dates (start - stop) Status Comments PENTASA (unknown strength) Not Available - Active DIAZEPAM (unknown strength) Not Available - Active VICODIN (unknown strength) Not Available - Active Procedures Procedure Date Office/outpatient visit,[facility] 2010 Advance Directives Directive Yes / No Effective Date File Name No Information Encounters Encounter Description Practice Location Reason(s) For Visit Diagnoses Date Provider Providers Copied on Encounter Z [facility], [address], [place], [address], [place] tel:[phone] [facility] - [place] No Information No Information Office/outpat ient visit,[facility] [place] [facility], [address], [place], [address], [place] tel:[phone] [facility] - [place] ULCERATVE COLITIS UN[facility] No Information Referring Provider: Kamala Joseph, [address], [place], [address]. tel:[phone] Family History Family Member Type Diagnosis Age At Onset Father Problem (finding) prostate cancer Mother Problem (finding) malignant neoplasm of o vary Problem (finding) Family history of Cance r Payers Payer name Insurance type Covered republican ID Authoriza tion(s) Medicare [id number] Social History Type Description Quantity Date Captured Comments Sex Male Smoking Status No Information Chief Complaint And Reason For Visit No Information Reason For Referral Reason For Referral No Information History Of Present Illness Encounter Date Complaint History Of Prese nt Illness No Information Functional Status Date Functional Assessmen t No Information Instructions Date Instruction Additional Infor mation No Information Assessments Type Assessment Date No Information Patient Care Teams Name Effective Dates (start - stop) Status Members No Information
--- OUTSIDE RECORDS SUMMARY | 2024-11-13 14:20 | XMS_ITS | Clinical Summary ---
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
--- OUTSIDE RECORDS SUMMARY | 2024-11-13 14:20 | XMS_ITS | Continuity of Care Document ---
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 Name Role Phone Abebe Aragon Unavailable Unavailable Allergies, Adverse Reactions, Alerts Substance Reaction Status Criticality No Known Allergies Active No Inform ation Medications Medication Instructions Dosage Effective Dates (start - stop) Status Comments Cymbalta 30 mg capsule,delayed release take 2 capsule by ORAL route every day 60 MG - Active Pentasa 500 mg capsule,controlled release take 2 capsule by oral route 2 times every day 1000 MG - Active medical cannabis ORAL - Active levothyroxine 25 mcg capsule take 1 capsule by oral route every day 25 MCG - Active Linzess 290 mcg capsule take 1 capsule by oral route every day on an empty stomach at least 30 minutes before 1st meal of the day 290 MCG - Active tamsulosin 0.4 mg capsule take 1 capsule by oral route every day 1/2 hour following the same meal each day 0.4 MG - Active psyllium (METAMUCIL) 58.6 % packet Take 1 packet by mouth daily - Active Oyster Shell Calcium-Vitamin D3 500 mg-5 mcg (200 unit) tablet Take 1 tablet by mouth daily Takes a powder version of this - Active latanoprost 0.005 % eye drops Place 1 drop into both eyes daily - Active Procedures Procedure Date OFFICE/OUTPATIENT VISIT, EST PERQ LUMBAR DECOMPRESSION No Charge For Visit Per Prov OFFICE/OUTPATIENT VISIT, EST OFFICE/OUTPATIENT VISIT, NEW Advance Directives Directive Yes / No Effective Date File Name No Information Encounters Encounter Description Practice Location Reason(s) For Visit Diagnoses Date Provider Providers Copied on Encounter OFFICE/OUTPA TIENT VISIT, EST [facility], [address] [place] [address], [id number] , tel:[phone] [facility] Back pain (chief complaint) Spinal stenosis, lumbar region with neurogenic claudicationOther chronic painPostlaminectomy syndrome, not elsewhere classifiedOther manager intermediate (current) drug therapy 3 Esteban Lomas. [address] [place] [address], [id number] , [place]. tel:[phone] Referring Provider: Shoaib Espinoza, [address] [place] [address], [id number]. tel:[phone] [facility], [address] [place] [address], [id number] , [place] tel:[phone] [facility] Spinal stenosis, lumbar region with neurogenic claudication 3 Susana Cramer. [address] [place] [address], [id number] , [place]. tel:[phone] Referring Provider: Shoaib Espinoza, [address] [place] [address], [id number]. tel:[phone] [facility], [address] [place] [address], [id number] , [place] tel:[phone] [facility] No Information 3 Susana Cramer. [address] [place] [address], [id number] , [place]. [phone] Referring Provider: Shoaib Espinoza, [address] [place] [address], [id number]. [phone] [facility], [address] [place] [address], [id number] , [place] tel:[phone] [facility] Leg Pain (chief complaint) Other chronic painSpinal stenosis, lumbar region with neurogenic claudicationPostlami nectomy syndrome, not elsewhere classifiedOther assisted (current) drug therapy 3 Susana Cramer. [address] [place] [address], [id number] , [place]. tel:[phone] Referring Provider: Shoaib Espinoza, [address] [place] [address], [id number]. [phone] OFFICE/OUTPA TIENT VISIT, [facility], [address] [place] [address], [id number] , [place] tel:[phone] [facility] Leg Pain (chief complaint) Other chronic painSpinal stenosis, lumbar region with neurogenic claudicationPostlami nectomy syndrome, not elsewhere classifiedOther assisted (current) drug therapy 3 Juliet Erika. [address] [place] [address], [id number] , [place]. tel:[phone] Referring Provider: Shoaib Espinoza, [address] [place] [address], [id number]. [phone] OFFICE/OUTPA TIENT VISIT, [facility], [address] [place] [address], [id number] , [place] tel:[phone] [facility] bilateral knee pain (chief complaint) Other chronic painSpinal stenosis, lumbar region with neurogenic claudicationPostlami nectomy syndrome, not elsewhere classifiedOther manager intermediate (current) drug therapy 3 Juliet Erika. [address] [place] [address], [id number] , [place]. tel:[phone] Referring Provider: Fito Young, [facility] [address], [place], [address]. [phone] [facility], [address] [place] [address], [id number] , [place] tel:[phone] [facility] No Information 3 Juliet Erika. [address] [place] [address], [id number] , [place]. tel:[phone] Family History Family Member Type Diagnosis Age At Onset Father Problem polio, arthritis Payers Payer name Insurance type Covered alliance party ID Authoriza tinando(s) Medicare MB [id number] [facility] [id number] Social History Type Description Quantity Date Captured Comments Alcohol Use Details Unknown Caffeine Use Details Unknown Tobacco Use Status No Information Smoking Status No Information Sex Male Chief Complaint And Reason For Visit From encounter dated 04/20/2023 10:20'. Back pain (chief complaint). Description: Severity level is 5. Duration: chronic. The problem is improving. It occurs persistently. The client describes the pain as an ache, burning, Tightness and tingling. Symptoms are aggravated by ascending stairs, descending stairs, sitting, standing, walking, housework and prolonged positioning. Symptoms are relieved by lying down, pain meds/drugs, stretching, rest and changing positions. Reason For Referral Reason For Referral No Information Plan Of Treatment Date Type Action Status Goal Tobacco Use. Due on 023 due Goal Zoster vaccine (). Due on due Goal Unhealthy drug use screening . Due on due Goal Update Social History. Due o n due Goal Review Allergy List. Due on due Goal Weight. Due on d ue Goal Medication Reconciliation. D ue on due Goal Height. Due on d ue Goal PHQ-9. Due on du e Goal Medication Reconciliation. D ue on due Goal Update Social History. Due o n due Goal Zoster vaccine (1st). Due on due Goal Unhealthy drug use screening . Due on due Goal PHQ-9. Due on du e Goal Review Allergy List. Due on due Goal Height. Due on d ue Goal Tobacco Use. Due on due Goal Weight. Due on d ue Goal Height. Due on d ue Goal Zoster vaccine (1st). Due on due Goal Unhealthy drug use screening . Due on due Goal PHQ-9. Due on du e Goal Tobacco Use. Due on due Goal Medication Reconciliation. D ue on due Goal Weight. Due on d ue Goal Update Social History. Due o n due Goal Review Allergy List. Due on due Goal Review Allergy List. Due on due Goal Medication Reconciliation. D ue on due Goal Weight. Due on d ue Goal Tobacco Use. Due on due Goal PHQ-9. Due on du e Goal Height. Due on d ue Goal Update Social History. Due o n due Goal Zoster vaccine (1st). Due on due Goal Unhealthy drug use screening . Due on due Goal Unhealthy drug use screening . Due on due Goal Zoster vaccine (1st). Due on due Goal Update Social History. Due o n due Goal Height. Due on d ue Goal PHQ-9. Due on du e Goal Tobacco Use. Due on 023 due Goal Weight. Due on d ue Goal Medication Reconciliation. D ue on due Goal Review Allergy List. Due on due History Of Present Illness Encounter Date Complaint History Of Prese nt Illness Comments: Cesar is present here today for follow up and medication refill for ongoing back and leg pain. He is accompanied today by his who participates in the discussion. States pain has been improving since last OV.S/p MILD procedure 04/13/23 patient states it relieved 20% pain so far, further benefit pending. He has tried and failed the SCS trial in the past about 10+ years ago but he would be willing to revisit and pursue another trial if the MILD procedure does not provide much benefit. Reports current medication regimen provides moderate pain relief. Continues Cymbalta through outside provider. No other concerns today. Back pain Severity level i s 5. Duration: chronic. The problem is improving. It occurs persistently. The client describes the pain as an ache, burning, Tightness and tingling. Symptoms are aggravated by ascending stairs, descending stairs, sitting, standing, walking, housework and prolonged positioning. Symptoms are relieved by lying down, pain meds/drugs, stretching, rest and changing positions. Comments: Cesar is an 87 y/o male presenting for a physician consult to discuss MILD procedure. He has chronic low back and BLE pain, including neuropathy and weakness in BL legs. He reports significant back and leg pain while walking and standing. His pain decreases when he leans on something and when laying down. Details pain is most bothersome in BLE from his knees to his feet.Inquires about how the MILD procedure compares to other back surgeries, SCS, and intracept.Of note, his is present at today's visit and contributes to the discussion. No other concerns today. Leg Pain Duration: chroni c. Severity level is 7/10. It occurs constantly and is stable. The pain is aggravated by bending, climbing (and descending) stairs, lifting, movement, walking and standing. The pain is relieved by pain/RX meds, rest and changing positions. Comments: Cesar is an 87 y/o male here for his initial follow up. Patient is accompanied by his spouse who participated in the discussion of his care. Reports he has been feeling about the same since he was last seen, endorses more pain in the RLE currently. They are here to discuss potential procedure options. No other concerns today. Leg Pain Duration: chroni c. Severity level is 5. It occurs constantly and is worsening. Location: bilateral knee. The pain is burning and tingling. The pain is aggravated by climbing (and descending) stairs, lifting, walking, standing and housework. The pain is relieved by pain/RX meds, rest, changing positions and lying down. Comments: Cesar is a 87 y/o male here for initial consult for BL pain. Referred by PCP Dr. Fito Young. Patient is accompanied by his spouse who participated in the disussion of his care. - Neuropatyh and weakness in lower legs. weakness/numbness tingling in BL top of the ankles. Sometimes in the thighs, maybe about 4-6 inches above the knee. anterior legs is the worst. Pain in R leg/knee has been since 2010. - pain is worsened by walking, can't walk more than 1/4 mile without needing to sit. sitting at a desk, standing (can only stand at most 10 minutes). - elevating legs makes pain better, lying down. Pain is better int he morning. can generally sleep through the night, pillow in between the legs. sometimes wakes up in pain in the night. currently istting pain is 3-4, standing/walking pain is 5-6, sometimes up to 7/10 on a bad day. - used to bike ride but not able to do that anymore. - in January 2022 hiked 26 miles over 4 days in [place], then got COVID and after the pain migrated to left and is now bilateral. - saw ortho last summer [facility], had knee imaging done- lumbar epidural injections (several) not helpful. - SCS trial [place] [facility], can't remember brand. did not pass trial. didn't like the paraesthesias. - surgery in 2010, partial discectomy (L3-4 [facility] in [place]). not helpful. - not really having back pain, sometimes having stiffness. - pain is getting worse, becoming more debilitating. - [facility] recommended lumbar decompression (L3-4 potenitally?). another [facility] (rehab)- Knee pain is described as dull ache. Pain in lower legs is numbness/tingling. - Per patient, no significant osteoarthritis according to knee XRs last summer. - cannabis is beneficial, uses pill version mostly. takes TID. does have some SEs, affects congition some, short term memory, fatigue. - positive shopping cart sign- swims 500 yards 2-3 times per week, helpful. - EMG in 2012. Last summer at [place] had EMGs- [facility], thought it helped him build up strength. - recalls trying a pump trial without success. The patient has tried gabapentin, lyrica, cymbalta, hydrocodone, medical cannabis, and tylenol without lasting relief. The patient has tried interventions such as physical therapy and injections in the past without lasting relief. Patient is interested in pain management through [facility]. No other concerns today. bilateral knee pain Duration: ch ronic. Severity level is 6. It occurs constantly. Location: bilateral knee. The pain is aching, burning, dull, deep and numbness. The pain is aggravated by climbing (and descending) stairs, lifting, walking, standing, running, housework and movement. The pain is relieved by pain/RX meds, rest, stretching and supine. Functional Status Date Functional Assessmen t No Information Instructions Date Instruction Additional Infor mation No Information Assessments Type Assessment Date assessment Spinal stenosis, lumbar region w ith neurogenic claudication assessment Other chronic pain lewis Guerrero is an 87 y/o male presenting with chronic lower extremity pain, some low back pain. Pain has been gradually worsening over the past few years. Previous physical therapy at [facility] which helped with strength building per patient. Patient stays active by swimming weekly impression Patient endorses akua ropathy and generalized weakness in BL legs, starting at the knees. Pain is worse with walking, can only stand for ~10 minutes and then needs to rest. Elevating his legs improves his pain. Endorses occasional stiffness in low back. (+) shopping cart sign. These symptoms are consistent with spinal stenosis with neurogenic claudication. MILD procedure completed 04/13/2023, which provided about 20% pain relief so far, further benefit pending. Completed EMGs through [facility], not available for review. Reviewed lumbar MRI and noted that ther are three levels that MILD would provide benefit for. Discussed with pt that we would only be able to do 2 levels and on the left side. assessment Postlaminectomy syndrome, not el sewhere classified impression PSH right hemilamine ctomy and discectomy (L3-4). Per patient, he has had surgical consults, states one provider considered a lumbar decompression, another provider advised against. Has been evaluated at [facility]. Multiple lumbar ESIs in the past per patient without benefit. Patient recalls SCS trial >10 years ago, did not like the paresthesias. He would be open to another SCS trial if recommended, given the advancements in technology since his previous trial. Lumbar MRI results from 06/20/22 (at [facility]) shows multilevel lumbar degenerative changes with chronic L3-4 right dorsal decompression, and specifics as follows:1. Central stenosis which is moderate to severe at L3-4 with central nerve crowding. Moderate central and subarticular stenosis at L2-3 with descending L3 root impingement. Mild central and subarticular stenosis at L1-2, and at L4-5 left greater than right.2. L5-S1 mild subarticular encroachment of the descending right S1 root, just beyond its branch point from a conjoined right L5/S1 root.3. Foraminal stenosis, moderate to severe on the left and moderate on the right at L4-5 with exiting left greater than right L4 root impingement. Also moderate on the right at L3-4, with exiting right L3 root impingement. Mild to moderate bilaterally at L5-S1 and on the left at L3-4 and L2-3, with encroachment of the exiting roots.4. Multilevel mild facet degeneration.5. No spondylolysis, vertebral collapse, acute fracture, or destructive osseous lesion.6. 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 He does have some SEs including short term memory issues and fatigue. Other previous medications tried include gabapentin (no benefit at up to 400mg/day, caused GI upset), Lyrica (does not recall dose or SEs), hydrocodone (per patient was on low dose for ~5 years, caused worsening constipation so d/c), Tylenol. Currently trialing Cymbalta, unsure of benefit and had an episode of diarrhea last night so he is not sure he is going to continue Mental Status Date Cognitive Assessment Orientation - [place] ed to time, place, person, situation. Patient Care Teams Name Effective Dates (start - stop) Status Members No Information
--- OUTSIDE RECORDS SUMMARY | 2024-11-13 14:21 | XMS_ITS | Continuity of Care Document ---
Author Organization [facility] Address [address] [place] [address] Phone Care Team Providers Care Coding Advisor Name Role Phone RN, RN Unavailable Unavailable Allergies, Adverse Reactions, Alerts Substance Reaction Status Criticality codeine vomiting Active No Information Medications Medication Instructions Dosage Effective Dates (start - stop) Status Comments calcium acetate Powder 2 tsp daily - Active Pentasa 500 mg Cap take 2 capsule (1000MG) by oral route 4 times every day 1000 MG - Active GLUCOSAMINE SULFATE (unknown strength) take 1 by Oral route for 1 day Not Available - Active METAMUCIL (unknown strength) Not Available - Active Procedures Procedure Date Est Pt Eval 25 Min Est Pt Eval 15 Min Arthrocentesis/aspir/inj; Jody 14 Inject Joint Large Fluoro Needle NonSpine Est Pt Eval 25 Min Neuromuscular Re-education Therapeutic Activities Psychotherapy, 45 minutes with patient o r family Manual Therapy Therapeutic Procedure Phys Therap Eval Therapeutic Procedure Pain Assessment And Follow Up Plan Docum ented Medicare Falls Asses No Fall Mobility: Walking & Moving Around, Curre nt Current Meds Documented, Not Verified Ma Mobility: Walking & Moving Around, Goal Inj Anes Epidur; Lumb/sac 1 Le 14 Inj Anes Epidur; Lumb/sac-ea A 14 Epidurography Rad S&i Fluoroscopy Radiation Exposure 14 Patient without preop order for prophyla ctic IV an Adverse Events did not occur Inj Anes Epidur; Lumb/sac 1 Le 14 Trans Epid Lumbosac each addl 4 Offic/outpt E&m Estab Low-mod 4 Patient Non Tobacco User Pain Assessment And Follow Up Plan Docum ented Screen for depression not performed Current Med Dosages Verified & Documente d BMI Not Done No F/U Plan Pre or Hypertensive Blood Pressure no fo llow up do QA DONE Psychotherapy, 45 minutes with patient o r family Current Meds Documented, Not Verified Patient NOT Screened for Tobacco Use Nov No depression Pain Assessment Not Performed 4 Offic/outpt E&m Estab Mod-hi 2 14 Patient Non Tobacco User Current Med Dosages Verified & Documente d Pain Assessment And Follow Up Plan Docum ented Screen for depression not performed Patient NOT Screened for Alcohol Use Oct Inj Anes Epidur; Lumb/sac 1 Le 13 Inj Anes Epidur; Lumb/sac 1 Le 13 Adverse Events did not occur Patient without preop order for prophyla ctic IV an Offic/outpt E&m Estab Mod-hi 2 13 Patient NOT Screened for Alcohol Use Sep Patient Non Tobacco User Current Med Dosages Verified & Documente d Screen for depression not performed Subsequent Visit For Low Back Pain Pain Assessment And Follow Up Plan Docum ented Inj Anes Epidur; Lumb/sac-ea A 13 Inj Anes Epidur; Lumb/sac 1 Le 13 Patient without preop order for prophyla ctic IV an Adverse Events did not occur Trans Epid Lumbosac each addl 3 Inj Anes Epidur; Lumb/sac 1 Le 13 Therapeutic Activities Mobility: Walking & Moving Around, Disch arge Mobility: Walking & Moving Around, Goal Lactate Ringers 1000 Fentanyl Citrate 2 ml /1 Unit 3 IV Start Kit IV Admin Kit Zofran Ondansetron HCL 4mg Est Pt Eval 25 Min Lactate Ringers 1000 Est Pt Eval 15 Min Subsequent Visit For Low Back Pain Patient NOT Screened for Alcohol Use Sep Patient NOT Screened for Tobacco Use Sep Current Meds Documented, Not Verified De Screen for depression not performed Pain Assessment And Follow Up Plan Docum ented QA DONE Spinal Cath Lumbosacral Fluoroscopic Guidance For Needle Placeme nt - Spine Intravenous infusion, for therapy, proph ylaxis, or Mod cs by same phys, 5 yrs + IV Cons Sed each addl 15M Fluoroscopy Radiation Exposure Documente d Pump Trial - Lumb/Sacro Prophylactic IV antibiotic initiated on time Adverse Events did not occur QA DONE Offic/outpt E&m Estab Mod-hi 2 13 1 RX Transmitted Electronically During E ncounter Patient NOT Screened for Alcohol Use Aug Subsequent Visit For Low Back Pain Patient Non Tobacco User Screen for depression not performed Current Med Dosages Verified & Documente d Pain Assessment And Follow Up Plan Docum ented Phys Therap Eval Therapeutic Activities Current Med Dosages Verified & Documente d Mobility: Walking & Moving Around, Goal Mobility: Walking & Moving Around, Curre nt Fall Screening 2X Or More Positve Falls risk assessment documented 2012 Pain Assessment Not Performed 3 Falls Plan Of Care Documented 3 QA DONE Psychotherapy, 45 minutes with patient o r family Patient NOT Screened for Alcohol Use Jul Patient NOT Screened for Tobacco Use Jul Current Med Dosages Verified & Documente d Pain Assessment And Follow Up Plan Docum ent No depression QA DONE Offic/outpt E&m Estab Mod-hi 2 13 Screen for depression not performed Pain Assessment And Follow Up Plan Docum [facility] Subsequent Visit For Low Back Pain Patient NOT Screened for Alcohol Use Jul Patient Non Tobacco User Current Med Dosages Verified & Documente d Offic/outpt E&m Estab Low-mod 3 Screen for depression not performed Patient Non Tobacco User Subsequent Visit For Low Back Pain Current Med Dosages Verified & Documente d Patient NOT Screened for Alcohol Use Jun [facility], [facility] minutes with patient o r family Patient NOT Screened for Alcohol Use Jun Patient NOT Screened for Tobacco Use Jun Current Med Dosages Verified & Documente d Pain Assessment Not Performed 3 No depression QA DONE Psycho testing admin by comp Psychotherapy, 45 minutes with patient o r family Patient NOT Screened for Alcohol Use May Patient NOT Screened for Tobacco Use May Current Med Dosages Verified & Documente d No depression QA DONE Pain Assessment And Follow Up Plan [facility] Offic/outpt E&m Estab Mod-hi 2 13 Patient NOT Screened for Alcohol Use May Patient Non Tobacco User Screen for depression not performed Subsequent Visit For Low Back Pain Pain Assessment And Follow Up Plan [facility] Current Med Dosages Verified & Documente d Offic/outpt E&m Estab Mod-hi 4 13 Pain Assessment And Follow Up Plan [facility] Screen for depression not performed Patient Non Tobacco User Patient NOT Screened for Alcohol Use Mar Subsequent Visit For Low Back Pain Current Med Dosages Verified & Documente d QA DONE Offic/outpt E&m Estab Mod-hi 2 13 Pain Assessment Not Performed 3 Current Med Dosages Verified & Documente d Screen for depression not performed Subsequent Visit For Low Back Pain Patient Non Tobacco User Patient NOT Screened for Alcohol Use Mar QA DONE Global Postop Visit Global Postop Visit Global Postop Visit Stim Analysis W Reprog Percut Implnt Elect Array Epid 13 Percut Implnt Elect Array Epid 13 Fluoroscopic Guidance For Needle Placeme nt - Spine Moderate sedation services Mod cs by same phys adtl 15 min 013 Fluroscopy Radiation Exposure 3 QA DONE Implant SCS Epi Lead Prophylactic IV antibiotic initiated on time Adverse Events did not occur Implant SCS Epi Lead QA DONE Psychiatric Diagnostic Evaluation Patient NOT Screened for Patient NOT Screened for Current Meds Documented, Pain Assessment And Follo Screen for depression not Est Pt Eval 25 Min Patient Non Tobacco User Back Pain & Function Asse Physical Examination Low Patient NOT Screened for Counseling Pt With Low Ba Advise Against Bed Rest D Current Med Dosages Verif Screen for depression not Pain Assessment And Follo QA DONE Inj Not Lytic-epidur; Lumb/sac 13 Adverse Events did not occur Patient without preop order for prophyla ctic IV an QA DONE Inj Not Lytic-epidur; Lumb/sac 13 Epidurography Rad S&i Fluroscopy Radiation Expo Offic/outpt E&m Estab Low-mod 3 Counseling Pt With Low Back Pain 2012 Advise Against Bed Rest Current Med Dosages Verified & Documente d Physical Examination Low Back Pain Not C omplete Positive Pain Assessment W F/U Plan Depression Screen not completed 013 Patient NOT Screened for Patient Non Tobacco User Back Pain & Function Asse QA DONE Manual Therapy Neuromuscular Re-education Therapeutic Procedure Neuromuscular Re-education Offic/outpt E&m Estab Low-mod 2 Subsequent Visit For Low Back Pain Current Med Dosages Verified & Documente d Patient encounter was documented using a [facility] cer QA DONE Neuromuscular Re-education Manual Therapy Manual Therapy Neuromuscular Re-education Phys Therap Eval Manual Therapy Patient encounter was documented using a [facility]IT cer Medicare Falls Asses No Fall Current Med Dosages Verified & Documente d Positive Pain Assessment W F/U Plan QA DONE Offic/outpt E&m Estab Mod-hi 2 12 Current Med Dosages Verified & Documente d Subsequent Visit For Low Back Pain Patient encounter was documented using a [facility] cer QA DONE Offic/outpt E&m Estab Low-mod 2 Advise Against Bed Rest Physical Examination Low Back Pain Not C omplete Back Pain & Function Assessed 2 Counseling Pt With Low Back Pain 2011 Patient encounter was documented using a [facility] cer Current Med Dosages Verified & Documente d QA DONE Offic/outpt E&m Estab Mod-hi 2 12 Subsequent Visit For Low Current Med Dosages Verif Patient encounter was doc 1 RX Transmitted Electron Offic/outpt E&m New Mod-hi 45 2 Back Pain & Function Asse Physical Examination Low Patient Screened for Alco Patient Non Tobacco User Counseling Pt With Low Ba Advise Against Bed Rest Current Med Dosages Verif Patient encounter was doc Advance Directives Directive Yes / No Effective Date File Name No Information Encounters Encounter Description Practice Location Reason(s) For Visit Diagnoses Date Provider Providers Copied on Encounter MURALI Braga, [address], [place], [address], [place] tel:[phone] [facility] No Information 4 RN RN. [address], [place], [place], [address], [place]. tel:[phone] Referring Provider: Kathy Ho CNP , [address], [address]. tel:[phone] Est Pt Eval 25 Min [facility], [facility], [address], [place], [place], [address], [place] tel:[phone] [facility] No Information 4 Maggie Smith. [address] [place], [address], [place]. Referring Provider: Kathy Ho CNP L, [address], [address]. tel:[phone] Est Pt Eval 15 Min [facility], [facility], [address], [place], [place], [address], [place] tel:[phone] [facility] No Information 4 No Information Referring Provider: Kathy Ho CNP L, [address], [address]. tel:[phone] [facility], [address], [place], [address], [place] tel:[phone] [facility] No Information 4 Fouzia Lomas. [address], [place], [place], [address], [place]. tel:[phone] Referring Provider: Abebe Serna, [address], [place], [address]. tel:[phone] [facility], [facility], [address], [place], [place], [address], [place] tel:[phone] [facility] No Information 4 Fouzia Lomas. [address], [place], [place], [address], [place]. tel:[phone] Referring Provider: Kathy Ho CNP L, [address], [address]. tel:[phone] Est Pt Eval 25 Min RAMON Braga, [address], [place], [place], [address], [place] tel:[phone] [facility] No Information Jan- 4 Sy Wade. [address], [place], [address], [place]. tel:[phone] Referring Provider: Kathy Ho CNP L, [address] [place] [address], [address]. tel:[phone] MURALI Braga, [address], [place], [address], [place] tel:[phone] Denise Braga [facility] 7390 No Information Jan-0 4 Braxton Dixon. [address], [place], [place], [address], [place]. tel:[phone] Referring Provider: Kathy Ho CNP L, [address] [place] [address], [address]. tel:[phone] Psychotherap y, 45 minutes with patient or family MURALI Braga, [address], [place], [place], [address], [place] tel:[phone] Denise Braga [facility] [address] No Information Dec-2 4 Demar Collins. [address], [place], [place], [address], [place]. tel:[phone] Referring Provider: Kathy Ho CNP L, [address] [place] [address], [address]. tel:[phone] [facility], [address], [place], [place], [address], [place] tel:[phone] Denise Braga [facility] [address] No Information 4 O Peterpascale Candelaria. [address], [place], [place], [address], [place]. tel:[phone] Referring Provider: Kathy Ho CNP L, [address] [place], [address]. tel:[phone] [facility], [address], [place], [place], [address], [place] tel:[phone] [facility] 7390 No Information 4 O Peter Candelaria. [address], [place], [place], [address], [place]. tel:[phone] Referring Provider: Kathy Ho CNP L, [address] [place], [address]. tel:[phone] [facility], [address], [place], [address], [place] tel:[phone] [facility] No Information 4 Fouzia Lomas. [address], [place], [place], [address], [place]. tel:[phone] Referring Provider: Abebe Serna, [address], [place], [address]. tel:[phone] [facility], [address], [place], [place], [address], [place] tel:[phone] [facility] No Information 4 Fouzia Lomas. [address], [place], [place], [address], [place]. tel:[phone] Referring Provider: Kathy Ho CNP L, [address] [place], [address]. tel:[phone] Offic/outpt E&m Estab Low-mod [facility], [facility], [address], [place], [place], [address], [place] tel:[phone] [facility] No Information 4 Jorge Luis Monahan. [address], [place], [address], [place]. tel:[phone] Referring Provider: Kathy Ho CNP L, [address] [place], [address]. tel:[phone] Psychotherap y, 45 minutes with patient or family [facility], [address], [place], [place], [address], [place] tel:[phone] Denise Braga [facility] [address] No Information 4 Demar Collins. [address], [place], [place], [address], [place]. tel:[phone] Referring Provider: Kathy Ho PHILATELIC CONSULTANT L, [address] [place], [address]. tel:[phone] [facility], [address], [place], [place], [address], [place] tel:[phone] [facility] No Information 4 Jorge Luis Monahan. [address], [place], [address], [place]. tel:[phone] Offic/outpt E&m Estab Mod-hi 2 [facility], [address], [place], [place], [address], [place] tel:[phone] [facility] No Information 4 Jorge Luis Monahan. [address], [place], [address], [place]. tel:[phone] Referring Provider: Kathy Ho CNP L, [address] [place], [address]. tel:[phone] [facility], [address], [place], [place], [address], [place] tel:[phone] [facility] No Information 3 Melissa Ortiz. [address], [place], [place], [address], [place]. tel:[phone] Referring Provider: Kathy Ho CNP L, [address] [place], [address]. tel:[phone] [facility], [address], [place], [address], [place] tel:[phone] [facility] No Information 3 Melissa Ortiz. [address], [place], [place], [address], [place]. tel:[phone] Referring Provider: Diana GOTTLIEB, [address], [place], [address]. tel:[phone] Offic/outpt E&m Estab Mod-hi 2 [facility], [address], [place], [place], [address], [place] tel:[phone] [facility] No Information 3 Bran Ruiz. [address], [place], [place], [address], [place]. tel:[phone] Referring Provider: Kathy Ho CNP L, [address] [place], [address]. tel:[phone] [facility], [address], [place], [address], [place] tel:[phone] [facility] No Information 0 3 Melissa Ortiz. [address], [place], [place], [address], [place]. tel:[phone] Referring Provider: Diana GOTTLIEB, [address], [place], [address]. tel:[phone] [facility], [address], [place], [place], [address], [place] tel:[phone] [facility] No Information 3 Melissa Ortiz. [address], [place], [place], [address], [place]. tel:[phone] Referring Provider: Kathy Ho CNP L, [address] [place] [address], [address]. tel:[phone] [facility], [address], [place], [place], [address], [place] tel:[phone] Denise Braga [facility] 7390 No Information 0 3 Shalom PT, DPT Gu[place]. [address], [place], [place], [address], [place]. tel:[phone] Referring Provider: Kathy Ho CNP L, [address] [place] [address], [address]. tel:[phone] Est Pt Eval 25 Min [facility], [address], [place], [place], [address], [place] tel:[phone] [facility] No Information 0 3 Fouzia Lomas. [address], [place], [place], [address], [place]. tel:[phone] Referring Provider: Kathy Ho CNP L, [address] [place], [address]. tel:[phone] Est Pt Eval 15 Min [facility], [address], [place], [place], [address], [place] tel:[phone] [facility] No Information 3 Melissa Ortiz. [address], [place], [place], [address], [place]. tel:[phone] Referring Provider: Kathy Ho CNP L, [address] [place] [address], [address]. tel:[phone] [facility], [address], [place], [place], [address], [place] tel:[phone] [facility] No Information 3 Melissa Ortiz. [address], [place], [place], [address], [place]. tel:[phone] Referring Provider: Kathy Ho CNP L, [address] [place] [address], [address]. tel:[phone] [facility], [address], [place], [address], [place] tel:[phone] [facility] No Information 3 Melissa Ortiz. [address], [place], [place], [address], [place]. tel:[phone] Referring Provider: Diana GOTTLIEB, [address], [place], [address]. tel:[phone] Offic/outpt E&m Estab Mod-hi 2 [facility], [address], [place], [place], [address], [place] tel:[phone] [facility] No Information 3 Oscareva Taniya. [address], [place], [address], [place]. tel:[phone] Referring Provider: Kathy Ho CNP L, [address], [address]. tel:[phone] [facility], [address], [place], [address], [place] tel:[phone] [place] [facility] 7390 No Information 3 Harmony Buchanan. [address], [place], [address], [place]. tel:[phone] Referring Provider: Kathy Ho CNP L, [address] [place] [address], [address]. tel:[phone] Psychotherap y, 45 minutes with patient or family [facility], [address] [facility] [address], [address], [place] tel:[phone] Denise Braga [facility] 7390 No Information 3 Keith Verdin. [address], [place], [address], [place]. tel:[phone] Referring Provider: Kathy Ho CNP L, [address] [place], [address]. tel:[phone] Offic/outpt E&m Estab Mod-hi 2 RAMON Braga, [address] [facility] [address], [place], [address], [place] tel:[phone] [facility] No Information 3 Ally Puente. [address], [place], [address], [place]. tel:[phone] Referring Provider: Kathy Ho CNP L, [address], [address]. tel:[phone] Offic/outpt E&m Estab Low-mod [facility], [address], [place], [place], [address], [place] tel:[phone] [facility] No Information 3 Jorge Luis Monahan. [address], [place], [address], [place]. tel:[phone] Referring Provider: Kathy Ho CNP L, [address] [place] [address], [address]. tel:[phone] Psychotherap y, 45 minutes with patient or family M[facility]I Braga, [address] , [place], [place], [address], [place] tel:[phone] Den[facility] 7390 No Information 3 Keith Huffmanorah. [address], [place], [address], [place]. tel:[phone] Referring Provider: Kathy Ho CNP L, [address] [place] [address], [address]. tel:[phone] Psychotherap y, 45 minutes with patient or family [facility], [address], [place], [place], [address], [place] tel:[phone] [place] [facility] 7390 No Information 3 Parker Velvet. [address], [place], [address], [place]. tel:[phone] Referring Provider: Kathy Ho CNP L, [address] [place] [address], [address]. tel:[phone] Offic/outpt E&m Estab Mod-hi 2 [facility], [address], [place], [place], [address], [place] tel:[phone] [facility] No Information 3 Jorge Luis Monahan. [address], [place], [address], [place]. tel:[phone] Referring Provider: Kathy Ho CNP L, [address] [place], [address]. tel:[phone] Offic/outpt E&m Estab Mod-hi 4 [facility], [address], [place], [place], [address], [place] tel:[phone] [facility] No Information 3 Vic Burr. [address], [place], [place], [address], [place]. tel:[phone] Referring Provider: Kathy Ho CNP L, [address] [place], [address]. tel:[phone] Offic/outpt E&m Estab Mod-hi 2 [facility], [facility], [address], [place], [place], [address], [place] tel:[phone] [facility] No Information 3 Jorge Luis Monahan. [address], [place], [address], [place]. tel:[phone] Referring Provider: Kathy Ho CNP L, [address] [place], [address]. tel:[phone] [facility], [address], [place], [place], [address], [place] tel:[phone] [facility] No Information May-1 3-201 3 RN RN. [address], [place], [place], [address], [place]. tel:[phone] Referring Provider: Kathy Moctezuma, [address] [place] [address], [address]. tel:[phone] [facility], [facility], [address], [place], [place], [address], [place] tel:[phone] [facility] No Information 9-201 3 Maggie Sara Luis. [address] [place], [address], [place]. Referring Provider: Kathy Moctezuma, [address] [place] [address], [address]. tel:[phone] [facility], [address], [place], [address], [place] tel:[phone] [facility] No Information 6201 3 Fouzia Lomas. [address], [place], [place], [address], [place]. tel:[phone] Referring Provider: Kathy Ho CNP L, [address] [place] [address], [address]. tel:[phone] [facility] [facility], [address], [place], [place], [address], [place] tel:[phone] [facility] Denise No Information 2201 3 Melissa Ortiz. [address], [address], [place], [place], [address], [place]. tel:[phone] Referring Provider: Kathy Ho CNP L, [address] [place] [address], [address]. tel:[phone] [facility] [place], [address], [place], [address], [place] tel:[phone] [facility] Denise No Information 3 Melissa Ortiz. [address], [address], [place], [place], [address], [place]. tel:[phone] Referring Provider: Diana GOTTLIEB, [address], [place], [address]. tel:[phone] Psychiatric Diagnostic Evaluation [facility], [facility], [address], [place], [place], [address], [place] tel:[phone] [facility] No Information 3 Ketih Verdin. [address], [address], [place], [place], [address], [place]. tel:[phone] Referring Provider: Kathy Moctezuma, [address] [place] [address], [address]. tel:[phone] Est Pt Eval 25 Min Omi, [facility], [address], [place], [place], [id number], [place] tel:[phone] [facility] No Information 3 RN RN. [address], [address], [place], [place], [address], [place]. tel:[phone] Referring Provider: Kathy Ho CNP L, [address] [place] [address], [address]. tel:[phone] [facility] [place], [address], [place], [address], [place] tel:[phone] [facility] Denise No Information 3 Melissa Ortiz. [address], [address], [place], [place], [address], [place]. tel:[phone] Referring Provider: Kathy Ho CNP L, [address] [place], [address]. tel:[phone] RAMON Braga, [address], [place], [place], [address], [place] tel:[phone] [facility] Denise No Information 3 Melissa Ortiz. [address], [address], [place], [place], [address], [place]. tel:[phone] Referring Provider: Kathy Ho CNP L, [address] [place], [address]. tel:[phone] Offic/outpt E&m Estab Low-mod RAMON Braga, [address], [place], [place], [address], [place] tel:[phone] [facility] No Information 3 Bran Ruiz. [address], [address], [place], [place], [address], [place]. tel:[phone] Referring Provider: Kathy Ho CNP L, [address] [place], [address]. tel:[phone] RAMON Braga, [address], [place], [place], [address], [place] tel:[phone] Denise Braga [facility] 7390 No Information 2 Haromny Chanel. [address], [place], [place], [address], [place]. tel:[phone] Referring Provider: Kathy Ho CNP L, [address] [place], [address]. tel:[phone] RAMON rBaga, [address], [place], [place], [address], [place] tel:[phone] Denise Oteroa [facility] 7390 No Information 2 Harmony Chanel. [address], [address], [place], [place], [address], [place]. tel:[phone] Referring Provider: Kathy Ho CNP L, [address] [place], [address]. tel:[phone] Offic/outpt E&m Estab Low-mod Omi, [facility], [address], [place], [place], [address], [place] tel:[phone] [facility] No Information 2 Bran Ruiz. [address], [place], [place], [address], [place]. tel:[phone] Referring Provider: Kathy Ho CNP L, [address] [place], [address]. tel:[phone] [facility], [address], [place], [place], [address], [place] tel:[phone] [place] [facility] 7390 No Information 2 Harmony Chanel. [address], [place], [place], [address], [place]. tel:[phone] Referring Provider: Kathy Ho CNP L, [address] [place], [address]. tel:[phone] [facility], [facility], [address], [place], [place], [address], [place] tel:[phone] [place] [facility] 7390 No Information 2 Harmony Chanel. [address], [place], [place], [address], [place]. tel:[phone] Referring Provider: Kathy Ho PHILATELIC CONSULTANT L, [address] [place], [address]. tel:[phone] Omi [facility], [address], [place], [place], [address], [place] tel:[phone] Denise Braga [facility] 7390 No Information 2 Harmony Chanel. [address], [place], [place], [address], [place]. tel:[phone] Referring Provider: Kathy Vic MALLORY L, [address] [place], [address]. tel:[phone] Offic/outpt E&m Estab Mod-hi 2 Omi, [facility], [address] [facility] [address], [place], [place], [address], [place] tel:[phone] [facility] No Information 2 Schwcarol Sara. [address] [facility], [place], [place], [address], [place]. tel:[phone] Referring Provider: Kathyjazmín Ho CNP L, [address] [place], [address]. tel:[phone] Offic/outpt E&m Estab Low-mod Omi, [facility], [address] [facility] [address], [place], [place], [address], [place] tel:[phone] [facility] No Information 2 Jorge Luis Monahan. [address] [facility] [address], [place], [address], [place]. tel:[phone] Referring Provider: Kathysukhdev Ho CNP L, [address] [place], [address]. tel:[phone] Offic/outpt E&m Estab Mod-hi 2 Omi, [facility], [address] [facility] [address], [place], [place], [address], [place] tel:[phone] [facility] No Information 2 Jorge Luis Taniya. [address], [place], [address], [place]. tel:[phone] Referring Provider: Kathy Ho CNP L, [address] [place], [address]. tel:[phone] Offic/outpt E&m New Mod-hi 45 [facility], [address], [place], [place], [address], [place] tel:[phone] [facility] No Information 2 Gokanu HumphriesTaniya. [address] [facility] [address], [place], [address], [place]. tel:[phone] Referring Provider: Kathy Ho CNP L, [address] [place] [address], [address]. tel:[phone] Family History Family Member Type Diagnosis Age At Onset N/A Problem (finding) No Significant Family H istory Payers Payer name Insurance type Covered libertarian ID Authoriza tion(s) Medicare Part B [id number] Social History Type Description Quantity Date Captured [...]
--- OUTSIDE RECORDS SUMMARY | 2024-11-13 14:21 | XMS_ITS | Encounter Summary ---
Author Organization [place] Address [facility] [place] [address] Care Team Providers Care Final Assembly Inspector Name Role Phone Fito Young MD Primary Care Provider [phone] Reason for Referral * Diagnostic Imaging XR (Routine) - Pending Review Specialty Diagnoses / Procedures [facility] Referred To Contact Radiology. Diagnoses Oropharyngeal dysphagia Procedures XR Video Swallow with SENIOR RESEARCH PROJECT MANAGER or OT Rajani White MD [facility] [address] [address] [place] [address] Phone: tel: fax: Referral ID Status Reason Start Date Expiration Date V isits Requested Visits Authorized [id number] Pending Review 11/06/2024 11/06/2025 1 1 BOTTLER * Therapeutic Services (Routine) - Pending Review Specialty Diagnoses / Procedures Referred By Wanda sandhu Referred To Contact Diagnoses Oropharyngeal dysphagia Rajani White MD [facility] [address] [address] [place] [address] Phone: tel: fax: Referral ID Status Reason Start Date Expiration Date V isits Requested Visits Authorized [id number] Pending Review 11/06/2024 11/06/2025 1 1 Question Answer Course of Action: Evaluation and Treatment Speech Treatment Diagnosis: Dysphagia Specialty Services: Video Swallow Study Patient Scheduling Instructions: [facility] will call you to coordinate your care as prescribed by your provider. If you don't hear from a customer retention representative within 2 business days, please call . Comments Please be aware that coverage of these services is subject to the terms and limitations of your health insurance plan. Call member services at your health plan with any benefit or coverage questions. [facility] will call you to coordinate your care as prescribed by your provider. If you don't hear from a customer retention representative within 2 business days, please call . BOTTLER Encounter Details Date Type Department Care Team (Late st Contact Info) Description 11/06/2024 Transcribe Orders GENERIC EXTERNAL DATA DEPARTMENT Rajani White MD [facility] [address] [address] [place], [place] [address] Oropharyngeal dysphagia (Primary Dx) Social History Tobacco [...] AM CDT Legal Sex Male 4:19 AM MILK BOTTLER Gender Identity Male 03/05/2021 10:40 AM CDT Sexual Orientation Straight 03/17/2021 9: 59 AM CDT documented as of this encounter Plan of Treatment Upcoming Encounters Date Type Department Care Team (Late st Contact Info) Description 12/12/2024 11:00 AM MILK BOTTLER Appointment [facility] Imaging [address] [place] [address] Rajani White MD [facility] [address] [address] [place] [address] 12/12/2024 11:00 AM MILK BOTTLER Appointment M [facility] [address] [place] [address] Rajani White MD [facility] [address] [address] [place] [address] Scheduled Orders Name Type Priority Associated Diagnoses Orde r Schedule XR Video Swallow with SENIOR RESEARCH PROJECT MANAGER or OT Imaging Routine Oropharyngeal dysphagia Expected: 11/06/2024 (Approximate), Expires: 11/06/2025 Scheduled Referrals Name Type Priority Associated Diagnoses Orde r Schedule Speech Therapy Jig Maker Referral Referral Routine Oropharyngeal dysphagia Ordered: 11/06/2024 documented as of this encounter Visit Diagnoses Diagnosis Oropharyngeal dysphagia- Primary Dysphagia, oropharyngeal phase documented in this encounter Care Teams Final Assembly Inspector Relationship Specialty Start Date End Date Fito Young MD [facility] [place] 2] [address] [place] [address] PCP - General Family Medicine 11/10/20 documented as of this encounter
--- OUTSIDE RECORDS SUMMARY | 2024-11-13 14:21 | XMS_ITS | Referral Summary ---
Author Organization [place] Address [address] [facility] [place] [address] Care Team Providers Care Naphthol Soaping Machine Operator Name Role Phone Fito Young MD Primary Care Provider [phone] Encounters Date Type Department Care Team Description 11/06/2024 Transcribe Orders GENERIC EXTERNAL DATA DEPARTMENT Rajani White MD Oropharyngeal dysphagia (Primary Dx) from Last 3 Months Allergies No known active allergies Medications calcium carbonate (OS-MARY 500 MG [place]. [place]) 500 MG tablet Take 500 mg [...] AM CDT Legal Sex Male 4:19 AM STUDENT UNION CONSULTANT Gender Identity Male 03/05/2021 10:40 AM CDT [...] st Contact Info) Description 12/12/2024 11:00 AM STUDENT UNION CONSULTANT Appointment M [facility] Imaging [address] [place] [address] [place] [address] Rajani White MD [facility] [address] [address] [place] [address] 12/12/2024 11:00 AM STUDENT UNION CONSULTANT Appointment M [facility] [address] [facility] [place] [phone] Rajani White MD [facility] [address] [address] [place] [address] Insurance MEDICARE [employer] Advance Directives For more information, please contact: [phone] * Full Code (Latest Code Status on [...] 10:31 PM 05/29/2018 12:30 PM Care Teams Naphthol Soaping Machine Operator Relationship Specialty Start Date End Date Fito Young MD [facility] [address] [place] [address] PCP - General Family Medicine 11/10/20
--- OUTSIDE RECORDS SUMMARY | 2024-11-13 14:21 | XMS_ITS | Clinical Summary ---
Author Organization [place] Address [address] [facility] [place] [address] Care Team Providers Care Music Manager Name Role Phone Fito Young MD Primary Care Provider [phone] Allergies No known active allergies Medications calcium carbonate (OS-MARY 500 MG [place]. [place]) 500 MG tablet Take 500 mg [...] AM CDT Legal Sex Male 4:19 AM RECONCILIATION CLERK Gender Identity Male 03/05/2021 10:40 AM CDT [...] st Contact Info) Description 12/12/2024 11:00 AM RECONCILIATION CLERK Appointment [facility] Imaging [address] [facility] [address] [place] [phone] Rajani White MD [facility] [address] [address] [place] [address] 12/12/2024 11:00 AM RECONCILIATION CLERK [facility]ointment [facility] [address] [place] [phone] Rajani White MD [facility] [address] [address] [place] [address] Health Maintenance Due Date Last Done Comments [...] age to complete this topic Insurance [facility]ARE [facility] Address: [facility] [address] [place] [address] Advance Directives For more information, please contact: [phone] * Full Code (Latest Code Status on [...] 10:31 PM 05/29/2018 12:30 PM Care Teams Music Manager Relationship Specialty Start Date End Date Fito Young MD [facility] [address] [place] [address] PCP - General Family Medicine 11/10/20
--- OUTSIDE RECORDS SUMMARY | 2024-11-13 14:21 | XMS_ITS | Continuity of Care Document ---
Author Organization [facility] Address [address] [facility] [place] [address] Care Team Providers Care Head Of English Name Role Phone [facility] Unavailable Unav ailable Procedures Procedure Date PERQ LAMOT/NAGY LUMBAR Pt doc no events on discharg Pt w/o preop order iv ab pro No Charge For Visit Per Prov Advance Directives Directive Yes / No Effective Date File Name No Information Encounters Encounter Description Practice Location Reason(s) For Visit Diagnoses Date Provider Providers Copied on Encounter [facility], [address] [place] [address], [id number], [facility] No Information [facility]. [address] [place] [address] [place], [address], [place]. tel:[phone] Referring Provider: Shoaib Meza, [address] [place], [address]. tel:[phone] [facility], [address] [facility] [place], [address], [facility] No Information [facility]. [address] [facility], [address], [place]. tel:[phone] Referring Provider: Shoaib Meza, [address] [facility] [place], [address]. tel:[phone] Family History Family Member Type Diagnosis Age At Onset No Information Payers Payer name Insurance type Covered libertarian ID Authoriza tion(s) Medicare [id number] [facility] [id number] Social History Type Description Quantity Date Captured [...]
--- OUTSIDE RECORDS SUMMARY | 2024-11-13 14:21 | XMS_ITS | Continuity of Care Document ---
Author Organization [facility] Address [address] [facility] [place] [address] Care Team Providers Care Medication Care Manager Name Role Phone Keon Parker CRNA Unavailable Unavailable Procedures Procedure Date Percutaneous Image guided neuromodulatio n or intra Advance Directives Directive Yes / No Effective Date File Name No Information Encounters Encounter Description Practice Location Reason(s) For Visit Diagnoses Date Provider Providers Copied on Encounter [facility], [address] [place], [place], [id number], [facility] No Information Keith Herbert. [address] [place], [place], [address], . tel:[phone] Referring Provider: Shoaib Meza, [address] [facility] [place], [address] . tel:[phone] Family History Family Member Type Diagnosis Age At Onset No Information Payers Payer name Insurance type Covered libertarian ID Authoriza tion(s) Medicare [id number] [facility] [id number] Social History Type Description Quantity Date Captured [...]
[2024-11-13 14:33] LABS: PCR FLU A Negative PCR FLU A (Negative); PCR FLU B Negative PCR FLU B (Negative); PCR RSV Negative PCR RSV (Negative); SARS PCR* POSITIVE SARS-CoV-2 (Negative)
[2024-11-13] MEDS: 0.9 % SODIUM CHLORIDE 1000 ml 1,000 ML IV (14:37)
[2024-11-13 14:41] LABS: Appearance Urine Clear (Clear); Bilirubin Urine Negative (Negative); Blood Urine Negative (Negative); Color Urine Amber (Yellow); Glucose Urine Negative (Negative); Ketones Urine Negative (Negative); Leukocyte Esterase Urine Negative (Negative); Nitrite Urine Negative (Negative); Protein Urine 2+ (Negative); Specific Gravity Urine >= 1.030 (1.000-1.030); Urobilinogen Urine 0.2 (0.2-1.0); pH Urine 5.5 (5.0-8.5)
[2024-11-13 14:48] VITALS: BP 130/93; PULSE 73; RESP 18; TEMP 36.3; O2SAT 97
[2024-11-13 14:51] LABS: RBC Urine 0-2 (0-2); WBC Urine 0-2 (0-5)
== END 2024-11-13 15:59 | disposition home or self-care (01) ==
PROVIDERS: Emergency Provider Emergency Medicine; PCP Family Medicine
DX: U07.1 COVID-19 (principal); R53.1 Weakness
CPT/HCPCS: 36415; 70450; 71046; 80053; 81001; 83605; 84484; 85025; 87040; 87631; 93005; 99284; 99285; J7030

== ENCOUNTER 2025-05-06 15:18 | Inpatient (IN) | payer MEDICARE, OTHER, SELFPAY ==
--- OUTSIDE RECORDS SUMMARY | 2025-05-05 13:00 | XMS_ITS | Encounter Summary ---
Author Organization [facility] Address [address] [place] [address] Care Team Providers Care Automatic Buffer Name Role Phone HannahFito Primary Care Provider [phone] Manoj Gomez MD Unavailable [phone] Reason for Visit * Reason Comments Follow up Tremors have worsene d slightly, difficulty, swallowing, unsteady gait, and fatigue. Encounter Details Date Type Department Care Team (Late st Contact Info) Description 05/05/2025 1:00 PM CDT Office Visit [facility] [[email or web address]] of Neurology [address] [place] [id number] Manoj Gomez MD [address] [place] [address] [place] [id number] Parkinson's disease without dyskinesia or fluctuating manifestations (HCC) (Primary Dx); RBD (REM behavioral disorder); Lumbar radiculopathy Social History Tobacco Use Types Packs/Day Years Used Date Smoking Tobacco: Former Cigarettes Q uit: 196 Smokeless Tobacco: Never Tobacco Cessation:Counseling Given: Not Answered Alcohol Use Standard Drinks/Week Comments Not Currently 1 (1 standard drink = 0.6 oz pur e alcohol) Sex and Gender Information Value Date Recorded Sex Assigned at Not on file 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 Gender Identity Not on file Sexual Orientation Not on file documented as of this encounter Last Filed Vital Signs Vital Sign Reading Time Taken Comments Blood Pressure 116/74 05/05/2025 12:49 PM CDT Pulse 107 05/05/2025 12:49 PM CDT Temperature - - Respiratory Rate - - Oxygen Saturation - - Inhaled Oxygen Concentration - - Weight - - Height - - Body Mass Index - - documented in this encounter Progress Notes * Manoj Gomez MD - 05/05/2025 1:00 PM CDT 05/05/2025 Neurology Follow-up Note 1:01 PM ~~~~~~~~~~~~ Manoj Gomez MD Neurology ~~~~~~~~~~~ REPORT OF CONSULTATION Patient Name: Cesar Sorto : 1935 Primary Care Physician: Fito Young Consulting Physician: Manoj Gomez MD History of Present Illness Cesar Sorto is an 89 year old male with Parkinson's disease who presents with worsening swallowing difficulties. He experiences a slight but steady decline in his symptoms, with swallowing difficulties being the most troublesome. He experiences aspiration and coughing when swallowing, which makes it difficult to stay hydrated. He has been evaluated by a speech therapist and performs swallowing exercises that provide some help. He has Parkinson's disease and reports some trouble with walking. He uses a cane for stability, especially over longer distances or when he needs to avoid staggering. He has had a couple of falls in the past year but none recently. He also experiences near falls but manages to catch himself. He takes multiple medications, including those for constipation, which is a side effect of [place] used for back pain due to stenosis. He has undergone a thorough workup including MRI, CT scan, and back x-ray, and has consulted with a neuro pain clinic regarding potential implantable devices for painmanagement. He experiences episodes of acting out dreams, occurring a couple of times a week. He has tried melatonin intermittently without success and has not been taking it regularly. He has not fallen out of bed during these episodes but has grabbed his 's arm during sleep. He swims 600 yards three times a week, which he continues to do despite his symptoms. Missing dosesof carbidopa-levodopa results in increased tremors and stiffness. PAST MEDICAL HISTORY Past Medical History: Diagnosis Date Arthritis 2001 Musculoskeletal disease 2010 Neurologic disorder 2021 PAST SURGICAL HISTORY Past Surgical History: Procedure Laterality Date HX ORTHOPEDIC SURGERY 2010 ALLERGIES/SENSITIVITIES No Known Allergies CURRENT MEDS Current Outpatient Medications: amantadine HCl (SYMMETREL) 100 mg oral capsule, TAKE 1 CAPSULE BY MOUTH AFTER BREAKFAST AND 1 CAPSULE AFTER LUNCH, Disp: 60 capsule, Rfl: 3 bisacodyl (DULCOLAX) 10 mg Rectal Supp suppository, insert 1 suppository by rectal route every day as needed for constipation*, Disp: , Rfl: budesonide 160 mcg-formoterol 4.5 mcg (SYMBICORT) 160-4.5 mcg/actuation Inhl HFAA inhaler, Inhale.,Disp: , Rfl: calcium carbonate-vitamin D3 500 mg, 1250 mg,-5 mcg (OSCAL-D) oral tablet, Take 1 tablet by mouth Daily., Disp: , Rfl: carbidopa-levodopa (SINEMET) 25-100 mg oral tablet, Take 1.5 tablets three times a day, Disp: 405 tablet, Rfl: 3 DULoxetine (CYMBALTA) 60 mg oral delayed release capsule, Take 1 capsule (60 mg) by mouth once daily., Disp: 90 capsule, Rfl: 0 fluticasone (FLONASE) 50 mcg/actuation nasal spray, Instill into each nostril., Disp: , Rfl: HYDROcodone-acetaminophen (NORCO) 5-325 mg oral tablet, TAKE 1 TABLET BY MOUTH EVERY 4-6 HOURS NEEDED FOR PAIN*, Disp: , Rfl: latanoprost 0.005% (XALATAN) 0.005 % Opht Drop ophthalmic (EYE) solution, Instill 1 drop into the eye Daily., Disp: , Rfl: levothyroxine (SYNTHROID) 25 mcg oral tablet, TAKE 1 TABLET BY MOUTH DAILY*, Disp: , Rfl: LINZESS 72 mcg oral Cap, TAKE ONE CAPSULE BY MOUTH DAILY on an empty stomach 30 minutes before first meal of the day*, Disp: , Rfl: Mesalamine 500 mg oral sustained capsule, Take 2 capsules (1,000 mg) by mouth Daily., Disp: , Rfl: MOVANTIK 25 mg oral tablet, TAKE ONE TABLET BY MOUTH IN THE MORNING*, Disp: , Rfl: omeprazole (PRILOSEC) 10 mg oral delayed release capsule, Take 1 capsule (10 mg) by mouth once daily., Disp: , Rfl: pregabalin (LYRICA) 50 mg oral capsule, Take 1 capsule (50 mg) by mouth twice a day., Disp: 60 capsule, Rfl: 3 tamsulosin (FLOMAX) 0.4 mg oral capsule, TAKE ONE CAPSULE BY MOUTH DAILY*, Disp: , Rfl: SOCIAL HISTORY Social History Socioeconomic History Marital status: Spouse name: Not on file Number of children: Not on file Years of education: Not on file Highest education level: Not on file Occupational History Not on file Tobacco Use Smoking status: Former Current packs/day: 0.00 Types: Cigarettes Quit date: 1961 Years since quittin.5 Smokeless tobacco: Never Vaping Use Vaping status: Never Used Substance and Sexual Activity Alcohol use: Not Currently Alcohol/week: 1.0 standard drink of alcohol Types: 1 Glasses of wine per week Drug use: Not Currently Sexual activity: Yes Partners: Female control/protection: None Other Topics Concern Abusive Relationship Concern No Guns In Home No Caffeine Use Concern No Diet Concern No Exercise Concern No Bike Helmet Use Yes Seat Belt Use Yes Social History Narrative Not on file Social Drivers of Health Financial Resource Strain: Low Risk (02/18/2022) Received from [facility] Overall Financial Resource Strain (CARDIA) Difficulty of Paying Living Expenses: Not very hard Food Insecurity: No Food Insecurity (02/18/2022) Received from [facility] Hunger Vital Sign Worried About Running Out of Food in the Last Year: Never true Ran Out of Food in the Last Year: Never true Transportation Needs: No Transportation Needs (02/18/2022) Received from [facility] PRAPARE - Transportation Lack of Transportation (Medical): No Lack of Transportation (Non-Medical): No Physical Activity: Sufficiently Active (02/18/2022) Received from [facility] Exercise Vital Sign Days of Exercise per Week: 5 days Minutes of Exercise per Session: 30 min Stress: No Stress Concern Present (02/18/2022) Received from [facility] [employer] - Occupational Stress Questionnaire Feeling of Stress : Only a little Social Connections: Socially Integrated (02/18/2022) Received from [facility] Social Connection and Isolation Panel [NHANES] Frequency of Communication with Friends and Family: Twice a week Frequency of Social Gatherings with Friends and Family: Once a week Attends Rastafarian Services: More than 4 times per year Active Member of Clubs or Organizations: Yes Attends Club or Organization Meetings: More than 4 times per year Marital Status: Intimate Partner Violence: Not At Risk (02/18/2022) Received from [facility] Humiliation, Afraid, Rape, and Kick questionnaire Fear of Current or Ex-Partner: No Emotionally Abused: No Physically Abused: No Sexually Abused: No Housing Stability: Low Risk (02/18/2022) Received from [facility] Housing Stability Vital Sign Unable to Pay for Housing in the Last Year: No Number of Places Lived in the Last Year: 1 Unstable Housing in the Last Year: No FAMILY HISTORY Family History Problem Relation Name Age of Onset Cancer Mother Karma Arthritis Father Father/ Ariel REVIEW OF SYSTEMS: 10 point ROS was otherwise negative. Blood pressure 116/74, pulse (!) 107. Physical Exam Patient was well groomed and appeared of appropriate age. HEENT: Pupils were equal and reactive to light and accommodation. Extraocular movements were intact. No mucosal congestion. Neck: The neck was supple. There were no myofascial tender points. Neurological examination: Higher mental functions: The patient was awake alert and oriented x3. Speech and language functionswere normal. Cranial nerves examination: Pupils were equal and reactive to light and accommodation. Extraocular movements were intact. The optic disc was normal. There was no papilledema. There was no disconjugate gaze. There were no facial sensory deficits. There was no facial asymmetry. The shoulder shrug wasnormal. The tongue and uvula were in the midline. CN II- XII normal. Motor examination: Patient has no significant cogwheel rigidity. There is no pronator drift. The strength in the proximal and distal muscle groups in both upper and lower extremities was normal. Gait: The patient walked with a forward stoop and minimal decrease in the right arm swing. Slight loss of postural reflex. Results No results found for this or any previous visit. No results found. Assessment & Plan Parkinson's disease Mild to moderate Parkinson's disease, primarily affecting one side. Symptoms are well-controlled with current medication regimen. He uses a cane for stability and has experienced a few falls, but none recently. Physical activity, such as swimming, is maintained to support mobility and balance. - Continue current medication regimen including carbidopa-levodopa. - Encourage continued physical activity, such as swimming, to maintain mobility and balance. Dysphagia due to Parkinson's disease Swallowing difficulties attributed to Parkinson's disease, leading to aspiration and coughing. Swallowing exercises from speech therapy provide some benefit. - Continue swallowing exercises as recommended by speech therapy. REM sleep behavior disorder Frequent episodes of acting out dreams, occurring a couple of times a week. Melatonin has not been effective when taken intermittently. Regular use may reduce episodes. - Start taking melatonin every night, two hours before bedtime, to reduce episodes of acting out dreams. - Consider clonazepam if melatonin is ineffective. Chronic pain due to spinal stenosis Chronic pain in the legs, exacerbated by walking, related to spinal stenosis. Current pain management includes hydrocodone-acetaminophen. Neurostimulation is being considered as a potential treatment. Concerns about falls impacting the device were addressed, with reassurance that the device is secure once implanted. - Discuss neurostimulation options with the Neuro Pain Clinic. - Continue current pain management regimen with hydrocodone-acetaminophen as needed. [facility] 2024: Documentation of current mediations reviewed every visit 2. Does patient use tobacco? No 3. Patient has had no falls in calendar year 4. Does patient have Dementia? No I am the single focal point of care for a condition that requires longitudinal relationship and personalized care for condition(s) specified within this medical record. I spent 31 minutes on 05/05/2025 with this patient consisting of activities before, during and after the encounter including time spent: Preparing to see the patient including review of the chart, tests, and/or outside records. Reviewing and verifying information regarding the chief complaint and history already recorded by ancillary staff and/or the patient. Obtaining history and performing medically appropriate evaluation. Counseling the patient regarding the diagnosis, additional diagnostic considerations, possible diagnostic testing, and any potential options for therapy, including conservative/lifestyle measures and pharmacotherapy including risks/benefits, side effects and adverse effects. I also counseled the patient on how to contact me with any questions or concerns, new or worsening symptoms. Ordering medications, tests, and/or procedures, and documenting the chart. 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
[2025-05-06] VITALS (17 sets, daily range): BP systolic 157–168; BP diastolic 86–97; PULSE 78–106; RESP 14–20; TEMP 35.7–36.9; O2SAT 95–100; BMI 24.5; BMI 24.2
--- OUTSIDE RECORDS SUMMARY | 2025-05-06 15:21 | XMS_ITS | Clinical Summary ---
Author Organization [facility] Address [address] [place] [address] Care Team Providers Care Photographer Helper Name Role Phone Fito Young Primary Care Provider [phone] Manoj Gomez MD Unavailable [phone] Allergies No known active allergies Medications tamsulosin (FLOMAX) 0.4 mg oral capsule TAKE ONE CAPSULE BY MOUTH DAILY* Active calcium carbonate-vitam in D3 500 mg, 1250 mg,-5 mcg (OSCAL-D) oral tablet Take 1 tablet by mouth Daily. Active pregabalin (LYRICA) 50 mg oral capsule Take 1 capsule (50 mg) by mouth twice a day. 60 capsule 3 12/27/19 24 Active levothyroxine (SYNTHROID) 25 mcg oral tablet TAKE 1 TABLET BY MOUTH DAILY* Active carbidopa-levod opa (SINEMET) 25-100 mg oral tablet Take 1.5 tablets three times a day 405 tablet 3 10/30/19 25 Active DULoxetine (CYMBALTA) 60 mg oral delayed release capsule Take 1 capsule (60 mg) by mouth once daily. 90 capsule 01/06/20 25 Active amantadine HCl (SYMMETREL) 100 mg oral capsule TAKE 1 CAPSULE BY MOUTH AFTER BREAKFAST AND 1 CAPSULE AFTER LUNCH 60 capsule 3 05/04/20 25 Active MOVANTIK 25 mg oral tablet TAKE ONE TABLET BY MOUTH IN THE MORNING* 04/02/20 25 Active Mesalamine 500 mg oral sustained capsule Take 2 capsules (1,000 mg) by mouth Daily. Active latanoprost 0.005% (XALATAN) 0.005 % Opht Drop ophthalmic (EYE) solution Instill 1 drop into the eye Daily. Active fluticasone (FLONASE) 50 mcg/actuation nasal spray Instill into each nostril. Active budesonide 160 mcg-formoterol 4.5 mcg (SYMBICORT) 160-4.5 mcg/actuation Inhl HFAA inhaler Inhale. Active bisacodyl (DULCOLAX) 10 mg Rectal Supp suppository insert 1 suppository by rectal route every day as needed for constipation* 02/24/20 25 Active omeprazole (PRILOSEC) 10 mg oral delayed release capsule Take 1 capsule (10 mg) by mouth once daily. Active HYDROcodone-wily taminophen (NORCO) 5-325 mg oral tablet 0.5 tablets three times a day. 05/05/20 25 Active LINZESS 72 mcg oral Cap capsule 2.0139 capsules (145 mcg) once daily. 05/05/20 25 Active pe/hydrocod/wily taminophen/cpm ([id number]-I E-ACETAMINOPHEN ORAL) 07/15/20 23 025 Discontinued amantadine HCl (SYMMETREL) 100 mg oral capsule Take 1 CAPSULE BY MOUTH after breakfast and 1 after lunch 60 capsule 01/06/20 25 025 Discontinued Active Problems Problem Noted Date Diagnosed Date Colitis, ulcerative 06/12/2024 Spinal stenosis of lumbar re gion with neurogenic claudication 10/17/2022 Lumbosacral plexopathy 10/17/2022 Overview (12/27/2023): right leg Diplopia 02/22/2022 Hyperopia 02/22/2022 Encounters Date Type Department Care Team Description 05/05/2025 1:00 PM CDT Office Visit [facility] of Neurology - [address] [place] [address] Manoj Gomez MD Parkinson's disease without dyskinesia or fluctuating manifestations (HCC) (Primary Dx); RBD (REM behavioral disorder); Lumbar radiculopathy from Last 3 Months Family History Medical History Relation Comments Arthritis Father Cancer Mother Relation Status Comments Father Mother Social History Tobacco Use Types Packs/Day Years Used Date Smoking Tobacco: Former Cigarettes Q uit: 196 Smokeless Tobacco: Never Tobacco Cessation:Counseling Given: Not Answered Alcohol Use Standard Drinks/Week Comments Not Currently 1 (1 standard drink = 0.6 oz pur e alcohol) Sex and Gender Information Value Date Recorded Sex Assigned at Not on file 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 Gender Identity Not on file Sexual Orientation Not on file Last Filed Vital Signs Vital Sign Reading Time Taken Comments Blood Pressure 116/74 05/05/2025 12:49 PM CDT Pulse 107 05/05/2025 12:49 PM CDT Temperature - - Respiratory Rate 14 10/10/2023 11:54 AM STEEL FITTER Oxygen Saturation - - Inhaled Oxygen Concentration - - Weight 70.3 kg (155 lb) 10/10/2023 11:54 AM STEEL FITTER Height 172.7 cm (5' 8) 10/10/2023 11:54 AM STEEL FITTER Body Mass Index 23.57 10/10/2023 11:54 AM STEEL FITTER Plan of Treatment Health Maintenance Due Date Last Done Comments Lipid Screening 1935 Medicare Wellness Visit 1935 Yearly Review of HCD 1987 RSV Vaccines (1 - 1-dose 75+ series) 2012 COVID-19 Vaccine ( season) 2025 07/05/2024, 07/20/2023, 03/21/2023, Additional history exists Influenza Vaccine (#1) 2025 , 07/14/2022, 08/09/2021, Additional history exists Adult Tetanus Booster 09/09/2031 09/09/2021, 011 Zoster Vaccine Completed 08/14/2023, 03/19/2019 Pneumococcal 50+ Years Completed , 12/21/2015, 04/01/2013 Meningococcal B Vaccine Aged Out No l onger eligible based on patient's age to complete this topic Insurance MEDICARE PART A & B NON CONTRACT GENERIC Care Teams Photographer Helper Relationship Specialty Start Date End Date Fito Young [address] [place] [address] PCP - General 08/28/23 Manoj Gomez MD [address] [facility] [address] [place] [address] Neurology 08/28/23
--- OUTSIDE RECORDS SUMMARY | 2025-05-06 15:21 | XMS_ITS | Clinical Summary ---
Author Organization [facility] Address [address] [facility] [place] [address] Care Team Providers Care Coin Purse Framer Name Role Phone Fito Young MD Primary Care Provider Unavailab le Allergies No known active allergies Medications calcium carbonate (OS-MARY 500 MG COWLITZ. 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 Gender Identity Male 03/05/2021 10:40 AM CDT [...] 03/25/2021 9:40 AM CDT Plan of Treatment Health Maintenance Due Date Last Done Comments ANNUAL REVIEW OF HM ORDERS 1935 TSH W/FREE T4 REFLEX 1935 FALL RISK ASSESSMENT 2002 MEDICARE ANNUAL WELLNESS VISIT 2002 RSV VACCINE (1 - 1-dose 75+ series) 2012 PHQ-2 (once per calendar year) 2024 COVID-19 VACCINE (9 - Pfizer risk season) 2025 07/05/2024, 07/20/2023, 03/21/2023, Additional history exists INFLUENZA VACCINE (#1) 2025 , 07/20/2023, 07/14/2022, Additional history exists ADVANCE CARE PLANNING 12/02/2025 12/02/2020, 018 DTAP/TDAP/TD VACCINE (3 - Td or Tdap) 09/09/2031 09/09/2021, 03/15/2011 ZOSTER VACCINE Completed 08/14/2023, 03/19/2019 PNEUMOCOCCAL VACCINE 50+ YEARS Completed 08/12/2024, 12/21/2015, 04/01/2013 HPV VACCINE Aged Out No longer eligi ble based on patient's age to complete this topic MENINGITIS VACCINE Aged Out No longer eligible based on patient's age to complete this topic Insurance MEDICARE [address] Advance Directives For more information, please contact: [phone] * Full Code (Latest Code Status on [...] 10:31 PM 05/29/2018 12:30 PM Care Teams Coin Purse Framer Relationship Specialty Start Date End Date Fito Young MD PCP - General Family Medicine 11/10/20
--- OUTSIDE RECORDS SUMMARY | 2025-05-06 15:21 | XMS_ITS | Clinical Summary ---
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 Gender Identity Not on file Sexual Orientation Not on file Obstetrics History Last Filed Vital Signs Vital Sign Reading Time Taken Comments Blood Pressure 112/71 09/06/2020 1:20 PM 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 Pulse 80 09/06/2020 1:20 PM 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 Temperature - - Respiratory Rate - - Oxygen Saturation - - Inhaled Oxygen Concentration - - Weight 79.4 kg (175 lb) 09/06/2020 1:20 PM 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 Height 175.3 cm (5' 9) 09/06/2020 1:20 PM 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 Body Mass Index 25.84 09/06/2020 1:20 PM 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 Plan of Treatment Health Maintenance Due Date Last Done Comments Tetanus booster 1948 Depression screening for age 12+ 1949 Pneumococcal series for age 50+ (1 of 1 - PCV) 1987 Zoster (shingles) series for age 50+ (1 of 2) 1987 Medicare Wellness for age 65+ 2002 RSV vaccine for adults or (1 - 1-dose 75+ series) 2012 BMI (ht and wt on same day) for age 18+ 09/06/2021 09/06/2020 COVID-19 vaccine series (1 - 2023- season) 2024 Influenza Vaccine (#1) 2025 Hepatitis B series for 19+ Aged Out N o longer eligible based on patient's age to complete this topic Insurance MEDICARE PB ONLY COMMERCIAL Care Teams National Account Director Relationship Specialty Start Date End Date Marcus Mccoy MD PCP - General Family Practice 09/06/20
--- NOTE | 2025-05-06 15:30 | CRLHL7_ITS ---
For Patients: As a result of the Century Cures Act, medical imaging exams and procedure reports are released immediately into your electronic medical record. You may view this report before your referring provider. If you have questions, please contact your health care provider. INDICATION: Abdomen pain. TECHNIQUE: CT abdomen and pelvis acquired with 79 cc Isovue 370 IV contrast. COMPARISON: None. FINDINGS: Lower chest: Mild bibasilar subsegmental atelectasis/scarring, [id number]. Liver: Unremarkable. Normal in size and attenuation. No suspicious masses. Gallbladder and bile ducts: Unremarkable. No stones or inflammation. No biliary dilatation. Pancreas: Unremarkable. No mass or inflammation. Spleen: Unremarkable. Normal in size. No masses. Adrenal glands: Unremarkable. No nodules. Kidneys: Subcentimeter cortical hypodensity, too small to characterize. No hydroureteronephrosis. Punctate nonobstructive renal calculi. GI tract: Small hiatal hernia. Colonic diverticulosis. Dilatation of the small bowel to 3.5 cm with a focal transition point in the mid ileum in the right mid abdomen (4/50). Mild interloop edema about the bowel loops near the transition point. No evident differential bowel wall enhancement to indicate ischemia. There is a rectal stool ball measuring 8.7 cm (2/115). Normal appendix. Vasculature: Abdominal aorta is normal in caliber. Mesenteric arteries are patent. Lymph nodes: No lymphadenopathy. Peritoneum/Abdominal Wall: Unremarkable. No sign of mass or infiltration. No free air or significant free fluid. Pelvis: Unremarkable. Bones: Unremarkable for age. IMPRESSION: 1. There is a small bowel obstruction with a focal transition point in the right mid abdomen. 2. There is a rectal stool ball measuring 8.7 cm, likely reflecting constipation. Please note that all CT scans at this facility use dose modulation, iterative reconstruction, and/or weight-based dosing when appropriate to reduce radiation dose to as low as reasonably achievable. Dictated by Ender Meza MD @ 05/06/2025 5:34:04 PM (Electronically Signed)
--- NOTE | 2025-05-06 15:34 | ED.GENADULT ---
HPI - General Adult General Chief complaint: Nausea/Vomiting <Abiodun Zimmerman MD - Last Filed: 05/10/25 07:55> Stated complaint: nausea <Abiodun Zimmerman MD - Last Filed: 05/10/25 07:55> Time Seen by Provider: 05/06/25 15:27 <Abiodun Zimmerman MD - Last Filed: 05/10/25 07:55> History of Present Illness HPI narrative: Patient is a pleasant 89 year white male who presents with nausea and vomiting acute. Started about 4 hours ago. He has had a history of ileus in the past and had similar presentations. He reports abdominal pain that is pretty significant for him in his periumbilical region. He does not feel necessarily distended. He has a history of ulcerative colitis. He reports he has not had these type of ?ileus? symptoms for years. He used to get them on a regular yearly basis. He denies chest pain, fever, chills, neurologic complaint. Patient reports he has been vomiting he has not vomited blood. He has no allergies to medicines. 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 <Abiodun Zimmerman MD - Last Filed: 05/10/25 07:55> Related Data Home medications: Home Medications ?Medication ?Instructions ?Recorded ?Confirmed calcium 260 mg (phos,tribasic)-D3 1 tab PO QDAY 06/27/22 05/06/25 25 mcg-herbal 50 mg chewable tablet (Alive Calcium-Vitamin D3) latanoprost 0.005 % eye drops 1 drp ophthalmic (eye) HS 06/27/22 05/07/25 naloxegol 25 mg tablet (Movantik) 25 mg PO QAM 02/19/24 05/06/25 amantadine HCl 100 mg capsule 100 mg PO QDAY 07/04/24 05/06/25 carbidopa 25 mg-levodopa 100 mg 1 tab PO 3XD 07/04/24 05/06/25 tablet hydrocodone 5 mg-acetaminophen 325 1 tab PO Q4-6H PRN pain 05/07/25 05/07/25 mg tablet mesalamine 500 mg capsule,extended 2,000 mg PO DAILY 05/07/25 05/07/25 release (Pentasa) Previous Rx's ?Medication ?Instructions ?Recorded mupirocin 2 % topical ointment 1 applic topical TID #15 grams 01/16/24 levothyroxine 25 mcg tablet 25 mcg PO DAILY #90 tabs 07/04/24 linaclotide 145 mcg capsule 145 mcg PO QAM #90 caps 07/04/24 (Linzess) omeprazole 20 mg capsule,delayed 20 mg PO QDAY #90 caps 08/12/24 release budesonide-formoterol HFA 80 2 puff inhalation BID PRN Reactive 12/05/24 mcg-4.5 mcg/actuation aerosol airways #10.2 grams inhaler (Symbicort) pregabalin 50 mg capsule (Lyrica) 50 mg PO BID #180 caps 03/16/25 duloxetine 60 mg capsule,delayed 60 mg PO QDAY #90 caps 04/13/25 release (Cymbalta) tamsulosin 0.4 mg capsule 0.4 mg PO DAILY #90 caps 04/13/25 ondansetron 4 mg disintegrating 4 mg PO Q6H PRN #30 tabs 05/09/25 tablet <Abiodun Zimmerman MD - Last Filed: 05/10/25 07:55> Allergies/adverse reactions: Allergies Allergy/AdvReac Type Severity Reaction Status Date / Time No Known Drug Allergies Allergy Verified 04/13/25 15:01 <Abiodun Zimmerman MD - Last Filed: 05/10/25 07:55> Review of Systems Status of ROS: Reports: 6 or more systems reviewed and unremarkable except as noted in History and below <Abiodun Zimmerman MD - Last Filed: 05/10/25 07:55> [facility] Medical History: Medical History (Updated 05/09/25 @ 15:18 by Tiana Bailey MD) Constipation by delayed colonic transit ?K59.01 - Slow transit constipation (ICD-10) Chronic pain of right lower extremity ?M79.604 - Pain in right leg (ICD-10) ?G89.29 - Other chronic pain (ICD-10) Glaucoma ?H40.9 - Unspecified glaucoma (ICD-10) Esophageal dysphagia ?R13.19 - Other dysphagia (ICD-10) 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 - Other disorders of autonomic nervous system (ICD-10) Spinal stenosis of lumbar region with neurogenic claudication ?M48.062 - Spinal stenosis, lumbar region with neurogenic claudication (ICD-10) BPH associated with nocturia ?N40.1 - Benign prostatic hyperplasia with lower urinary tract symptoms (ICD-10) ?R35.1 - Nocturia (ICD-10) Asthma ?J45.909 - Unspecified asthma, uncomplicated (ICD-10) Oropharyngeal dysphagia ?R13.12 - Dysphagia, oropharyngeal phase (ICD-10) Dysphonia ?R49.0 - Dysphonia (ICD-10) Fatigue ?R53.83 - Other fatigue (ICD-10) Enrolled in chronic care management ?Z78.9 - Other specified health status (ICD-10) <Abiodun Zimmerman MD - Last Filed: 05/10/25 07:55> Surgical History: Surgical History History of microdiscectomy ?Z98.890 - Other specified postprocedural states (ICD-10) History of colonoscopy ?Z98.890 - Other specified postprocedural states (ICD-10) <Abiodun Zimmerman MD - Last Filed: 05/10/25 07:55> Social History: Social History What is your current living situation?: I presently have a place to live Problems where you live: no known problems Problems where you live details: n/a In the past 12 months, utilities in danger of being shut off: no In past 12 months, lack of transportation kept you from medical appts, meetings, work, or getting things needed for daily living: no In the past 12 mos, have been you worried that your food would run out before you had money to buy more?: never true In the past 12 mos, the food you bought just didn't last and you didn't have money to buy more?: never true Highest level of school completed/degree received: Doctoral degree Smoking Status: Former smoker Do you use any of these nicotine containing products: None How often do you have a drink containing alcohol: never AUDIT-C Alcohol total score: 0 Non-prescribed substance use: denies use How often does anyone, including family, friends and others, physically hurt you: never How often does anyone, including family, friends and others, insult or talk down to you: never How often does anyone, including family, friends and others, threaten you with harm: never How often does anyone, including family, friends and others, scream or curse at you: never <Abiodun Zimmerman MD - Last Filed: 05/10/25 07:55> Exam Narrative: Exam Narrative: Objective: Blood pressure slightly elevated, afebrile, O2 sat 99% on room air Patient is vomiting and retching pretty much steadily through the exam HEENT shows no facial asymmetry pulses regular Abdomen is diffusely tender but no rebound. Extremities all move well. The patient is sitting up in a easily in a gurney. Good peripheral perfusion noted <Abiodun Zimmerman MD - Last Filed: 05/10/25 07:55> Const: Vital Signs, click to edit/add: Vital Signs - 24 hr 05/06/25 15:21 05/06/25 16:55 05/06/25 17:00 Temperature 96.3 F L Pulse Rate 83 78 Pulse Rate [Pulse Oximeter] 85 Respiratory Rate 20 Blood Pressure Blood Pressure [Ri ght Upper Arm] 167/91 H Pulse Oximetry 99 95 100 Oxygen Delivery Me thod Room Air Oxygen Flow Rate 05/06/25 17:02 05/06/25 17:15 05/06/25 17:37 Temperature Pulse Rate 83 85 82 Pulse Rate [Pulse Oximeter] Respiratory Rate Blood Pressure 162/86 H Blood Pressure [Ri ght Upper Arm] Pulse Oximetry 99 100 97 Oxygen Delivery Me thod Oxygen Flow Rate 05/06/25 17:45 05/06/25 18:00 05/06/25 18:21 Temperature Pulse Rate 87 92 87 Pulse Rate [Pulse Oximeter] Respiratory Rate Blood Pressure Blood Pressure [Ri ght Upper Arm] Pulse Oximetry 100 99 100 Oxygen Delivery Me thod Oxygen Flow Rate 05/06/25 18:22 05/06/25 18:30 05/06/25 18:32 Temperature Pulse Rate 90 84 85 Pulse Rate [Pulse Oximeter] Respiratory Rate Blood Pressure 160/96 H 168/97 H Blood Pressure [Ri ght Upper Arm] Pulse Oximetry 99 99 97 Oxygen Delivery Me thod Oxygen Flow Rate 05/06/25 18:45 Temperature Pulse Rate 102 H Pulse Rate [Pulse Oximeter] Respiratory Rate Blood Pressure Blood Pressure [Ri ght Upper Arm] Pulse Oximetry 95 Oxygen Delivery Me thod Nasal Cannula Oxygen Flow Rate 2 <Abiodun Zimmerman MD - Last Filed: 05/10/25 07:55> Vital Signs, click to edit/add: Vital Signs - 24 hr 05/06/25 15:21 05/06/25 16:55 05/06/25 17:00 Temperature 96.3 F L Pulse Rate 83 78 Pulse Rate [Pulse Oximeter] 85 Respiratory Rate 20 Blood Pressure Blood Pressure [Ri ght Upper Arm] 167/91 H Pulse Oximetry 99 95 100 Oxygen Delivery Me thod Room Air Oxygen Flow Rate 05/06/25 17:02 05/06/25 17:15 05/06/25 17:37 Temperature Pulse Rate 83 85 82 Pulse Rate [Pulse Oximeter] Respiratory Rate Blood Pressure 162/86 H Blood Pressure [Ri ght Upper Arm] Pulse Oximetry 99 100 97 Oxygen Delivery Me thod Oxygen Flow Rate 05/06/25 17:45 05/06/25 18:00 05/06/25 18:21 Temperature Pulse Rate 87 92 87 Pulse Rate [Pulse Oximeter] Respiratory Rate Blood Pressure Blood Pressure [Ri ght Upper Arm] Pulse Oximetry 100 99 100 Oxygen Delivery Me thod Oxygen Flow Rate 05/06/25 18:22 05/06/25 18:30 05/06/25 18:32 Temperature Pulse Rate 90 84 85 Pulse Rate [Pulse Oximeter] Respiratory Rate Blood Pressure 160/96 H 168/97 H Blood Pressure [Ri ght Upper Arm] Pulse Oximetry 99 99 97 Oxygen Delivery Me thod Oxygen Flow Rate 05/06/25 18:45 Temperature Pulse Rate 102 H Pulse Rate [Pulse Oximeter] Respiratory Rate Blood Pressure Blood Pressure [Ri ght Upper Arm] Pulse Oximetry 95 Oxygen Delivery Me thod Nasal Cannula Oxygen Flow Rate 2 <Chuckie Murillo MD - Last Filed: 05/06/25 18:58> Course Vital Signs Vital signs: Initial Vital Signs Temperature 96.3 F L 05/06/25 15:21 Temperature Source Temporal Artery Scan 05/06/25 15:21 Pulse Rate 85 05/06/25 15:21 Respiratory Rate 20 05/06/25 15:21 Blood Pressure 167/91 H 05/06/25 15:21 Blood Pressure Mean 116 H 05/06/25 15:21 Blood Pressure Position Sitting 05/06/25 15:21 Pulse Oximetry 99 05/06/25 15:21 Oxygen Delivery Method Room Air 05/06/25 15:21 Vital Signs Temperature 96.3 F L 05/06/25 15:21 Pulse Rate 85 05/06/25 15:21 Respiratory Rate 20 05/06/25 15:21 Blood Pressure 167/91 H 05/06/25 15:21 Pulse Oximetry 99 05/06/25 15:21 Oxygen Delivery Method Room Air 05/06/25 15:21 Temperature 98 F 05/09/25 07:00 Pulse Rate 71 05/09/25 07:30 Respiratory Rate 16 05/09/25 07:00 Blood Pressure 119/71 05/09/25 07:00 Pulse Oximetry 96 05/09/25 07:00 Oxygen Delivery Method Room Air 05/09/25 07:00 Oxygen Flow Rate 2 05/09/25 07:00 <Abiodun Zimmerman MD - Last Filed: 05/10/25 07:55> Initial Vital Signs Temperature 96.3 F L 05/06/25 15:21 Temperature Source Temporal Artery Scan 05/06/25 15:21 Pulse Rate 85 05/06/25 15:21 Respiratory Rate 20 05/06/25 15:21 Blood Pressure 167/91 H 05/06/25 15:21 Blood Pressure Mean 116 H 05/06/25 15:21 Blood Pressure Position Sitting 05/06/25 15:21 Pulse Oximetry 99 05/06/25 15:21 Oxygen Delivery Method Room Air 05/06/25 15:21 Vital Signs Temperature 96.3 F L 05/06/25 15:21 Pulse Rate 85 05/06/25 15:21 Respiratory Rate 20 05/06/25 15:21 Blood Pressure 167/91 H 05/06/25 15:21 Pulse Oximetry 99 05/06/25 15:21 Oxygen Delivery Method Room Air 05/06/25 15:21 Temperature 98 F 05/09/25 07:00 Pulse Rate 71 05/09/25 07:30 Respiratory Rate 16 05/09/25 07:00 Blood Pressure 119/71 05/09/25 07:00 Pulse Oximetry 96 05/09/25 07:00 Oxygen Delivery Method Room Air 05/09/25 07:00 Oxygen Flow Rate 2 05/09/25 07:00 <Chuckie Murillo MD - Last Filed: 05/06/25 18:58> Medications Administered Medications: Discontinued Medications Generic Name Dose Route Start Last Admin Trade Name Jamieq PRN Reason Stop Dose Admin Acetaminophen 650 mg 05/07/25 22:55 05/07/25 22:59 Acetaminophen 325 Mg Tablet PO 650 mg Q4H PRN Administration Headache Bisacodyl 10 mg 05/07/25 12:21 05/07/25 14:56 Bisacodyl 10 Mg Supp.Rect IN 05/07/25 12:22 10 mg ONCE ONE Administration Bisacodyl 10 mg 05/09/25 09:07 05/09/25 09:52 Bisacodyl 10 Mg Supp.Rect IN 05/09/25 09:08 10 mg ONCE ONE Administration Carbidopa/Levodopa 1 tab 05/06/25 21:00 05/09/25 09:52 Carbidopa-Levodopa 25-100 Tablet PO 1 tab TID LENNIE Administration Duloxetine HCl 60 mg 05/07/25 09:00 05/09/25 09:51 Duloxetine [address] PO 60 mg DAILY LENNIE Administration Hydromorphone HCl 0.5 mg 05/06/25 17:56 05/06/25 18:19 Hydromorphone 0.5 Mg/0.5 Ml Inj IVP 0.5 mg Q1H PRN Administration Pain Sodium Chloride 500 mls @ 500 mls/hr 05/06/25 15:30 05/06/25 16:50 0.9 % Sodium Chloride 500 Ml IV 05/06/25 16:29 Infused .Q1H ONE Infusion Sodium Chloride 1,000 mls @ 1,000 mls/hr 05/06/25 17:15 05/06/25 18:00 0.9 % Sodium Chloride 1000 Ml IV 05/06/25 18:14 Infused .Q1H LENNIE Infusion Sodium Chloride 1,000 mls @ 100 mls/hr 05/06/25 19:45 05/07/25 22:23 0.9 % Sodium Chloride 1000 Ml IV 05/07/25 05:44 Infused .Q10H LENNIE Infusion Sodium Chloride 1,000 mls @ 125 mls/hr 05/07/25 09:45 05/07/25 21:25 0.9 % Sodium Chloride 1000 Ml IV Infused .Q8H LENNIE Infusion Sodium Chloride 1,000 mls @ 75 mls/hr 05/07/25 15:51 05/08/25 02:51 0.9 % Sodium Chloride 1000 Ml IV 75 mls/hr .[id number] LENNIE Administration Latanoprost 1 drop 05/08/25 21:00 05/08/25 20:54 Latanoprost 0.005% Ophth EYE-BOTH 1 drop HS LENNIE Administration Levothyroxine Sodium 25 mcg 05/07/25 06:00 05/09/25 06:13 Levothyroxine 25 Mcg Tablet PO 25 mcg DAILY@0600 LENNIE Administration Lorazepam 0.5 mg 05/06/25 17:57 05/06/25 18:24 Lorazepam 2 Mg/Ml Inj IVP 05/06/25 17:58 0.5 mg ONCE ONE Administration Lorazepam 0.5 mg 05/06/25 19:45 05/06/25 20:11 Lorazepam 2 Mg/Ml Inj IVP 05/06/25 19:46 0.5 mg ONCE ONE Administration Morphine Sulfate 2 mg 05/06/25 15:45 05/06/25 15:57 Morphine 2 Mg/Ml Inj IVP 05/06/25 15:46 2 mg ONCE ONE Administration Morphine Sulfate 4 mg 05/06/25 18:56 05/07/25 10:26 Morphine 4 Mg/Ml Inj IVP 4 mg Q4H PRN Administration Mupirocin 1 applic 05/07/25 14:00 05/09/25 11:02 Mupirocin 1 Gm Packet TOPICAL Not Given TID [facility] Amantadine Hcl 100 0 mg 05/07/25 09:00 05/09/25 11:02 Mg Capsule PO Not Given DAILY [facility] Omeprazole 20 mg 05/08/25 10:00 05/09/25 09:51 Omeprazole [address] PO 20 mg DAILY [facility] Administration Ondansetron HCl 4 mg 05/06/25 15:30 05/06/25 15:56 Ondansetron 2 Mg/Ml Inj IVP 05/06/25 15:31 4 mg ONCE ONE Administration Ondansetron HCl 4 mg 05/07/25 09:58 05/07/25 10:26 Ondansetron Odt 4 Mg Tab PO 4 mg Q6H PRN Administration Pregabalin 50 mg 05/06/25 21:00 05/09/25 09:54 Pregabalin 50 Mg Capsule PO 50 mg BID [facility] Administration Prochlorperazine 5 mg 05/07/25 09:58 05/07/25 10:34 Prochlorperazine 5 Mg/Ml Vial IVP 05/07/25 09:59 Not Given ONCE ONE Sodium Chloride 5 ml 05/06/25 21:00 05/08/25 20:55 Sodium Chloride 0.9 % (Flush) 10 Ml Syringe IVF 5 ml BID LENNIE Administration Tamsulosin HCl 0.4 mg 05/07/25 09:00 05/09/25 09:52 Tamsulosin Hcl 0.4 Mg Capsule PO 0.4 mg DAILY LENNIE Administration <Abiodun Zimmerman MD - Last Filed: 05/10/25 07:55> Discontinued Medications Generic Name Dose Route Start Last Admin Trade Name Freq PRN Reason Stop Dose Admin Acetaminophen 650 mg 05/07/25 22:55 05/07/25 22:59 Acetaminophen 325 Mg Tablet PO 650 mg Q4H PRN Administration Headache Bisacodyl 10 mg 05/07/25 12:21 05/07/25 14:56 Bisacodyl 10 Mg Supp.Rect IN 05/07/25 12:22 10 mg ONCE ONE Administration Bisacodyl 10 mg 05/09/25 09:07 05/09/25 09:52 Bisacodyl 10 Mg Supp.Rect IN 05/09/25 09:08 10 mg ONCE ONE Administration Carbidopa/Levodopa 1 tab 05/06/25 21:00 05/09/25 09:52 Carbidopa-Levodopa 25-100 Tablet PO 1 tab TID LENNIE Administration Duloxetine HCl 60 mg 05/07/25 09:00 05/09/25 09:51 Duloxetine [address] PO 60 mg DAILY LENNIE Administration Hydromorphone HCl 0.5 mg 05/06/25 17:56 05/06/25 18:19 Hydromorphone 0.5 Mg/0.5 Ml Inj IVP 0.5 mg Q1H PRN Administration Pain Sodium Chloride 500 mls @ 500 mls/hr 05/06/25 15:30 05/06/25 16:50 0.9 % Sodium Chloride 500 Ml IV 05/06/25 16:29 Infused .Q1H ONE Infusion Sodium Chloride 1,000 mls @ 1,000 mls/hr 05/06/25 17:15 05/06/25 18:00 0.9 % Sodium Chloride 1000 Ml IV 05/06/25 18:14 Infused .Q1H LENNIE Infusion Sodium Chloride 1,000 mls @ 100 mls/hr 05/06/25 19:45 05/07/25 22:23 0.9 % Sodium Chloride 1000 Ml IV 05/07/25 05:44 Infused .Q10H LENNIE Infusion Sodium Chloride 1,000 mls @ 125 mls/hr 05/07/25 09:45 05/07/25 21:25 0.9 % Sodium Chloride 1000 Ml IV Infused .Q8H LENNIE Infusion Sodium Chloride 1,000 mls @ 75 mls/hr 05/07/25 15:51 05/08/25 02:51 0.9 % Sodium Chloride 1000 Ml IV 75 mls/hr .[id number] LENNIE Administration Latanoprost 1 drop 05/08/25 21:00 05/08/25 20:54 Latanoprost 0.005% Ophth EYE-BOTH 1 drop HS LENNIE Administration Levothyroxine Sodium 25 mcg 05/07/25 06:00 05/09/25 06:13 Levothyroxine 25 Mcg Tablet PO 25 mcg DAILY@0600 LENNIE Administration Lorazepam 0.5 mg 05/06/25 17:57 05/06/25 18:24 Lorazepam 2 Mg/Ml Inj IVP 05/06/25 17:58 0.5 mg ONCE ONE Administration Lorazepam 0.5 mg 05/06/25 19:45 05/06/25 20:11 Lorazepam 2 Mg/Ml Inj IVP 05/06/25 19:46 0.5 mg ONCE ONE Administration Morphine Sulfate 2 mg 05/06/25 15:45 05/06/25 15:57 Morphine 2 Mg/Ml Inj IVP 05/06/25 15:46 2 mg ONCE ONE Administration Morphine Sulfate 4 mg 05/06/25 18:56 05/07/25 10:26 Morphine 4 Mg/Ml Inj IVP 4 mg Q4H PRN Administration Mupirocin 1 applic 05/07/25 14:00 05/09/25 11:02 Mupirocin 1 Gm Packet TOPICAL Not Given TID [facility] Amantadine Hcl 100 0 mg 05/07/25 09:00 05/09/25 11:02 Mg Capsule PO Not Given DAILY LENNIE Omeprazole 20 mg 05/08/25 10:00 05/09/25 09:51 Omeprazole [address] PO 20 mg DAILY LENNIE Administration Ondansetron HCl 4 mg 05/06/25 15:30 05/06/25 15:56 Ondansetron 2 Mg/Ml Inj IVP 05/06/25 15:31 4 mg ONCE ONE Administration Ondansetron HCl 4 mg 05/07/25 09:58 05/07/25 10:26 Ondansetron Odt 4 Mg Tab PO 4 mg Q6H PRN Administration Pregabalin 50 mg 05/06/25 21:00 05/09/25 09:54 Pregabalin 50 Mg Capsule PO 50 mg BID LENNIE Administration Prochlorperazine 5 mg 05/07/25 09:58 05/07/25 10:34 Prochlorperazine 5 Mg/Ml Vial IVP 05/07/25 09:59 Not Given ONCE ONE Sodium Chloride 5 ml 05/06/25 21:00 05/08/25 20:55 Sodium Chloride 0.9 % (Flush) 10 Ml Syringe IVF 5 ml BID LENNIE Administration Tamsulosin HCl 0.4 mg 05/07/25 09:00 05/09/25 09:52 Tamsulosin Hcl 0.4 Mg Capsule PO 0.4 mg DAILY LENNIE Administration <Chuckie Murillo MD - Last Filed: 05/06/25 18:58> Medical Decision Making MDM Narrative Medical decision making narrative: [age] year white male with a history of ulcerative colitis and constipation , as well as ileus, presents with nausea vomiting that is acute over the last 4-5 hours. He has had a history of ileus by his report. Will do a CT of his abdomen pelvis with IV contrast. Will check laboratory studies, will give him IV fluid, IV morphine for pain control and IV Zofran. Differential would include ileus, flare of ulcerative colitis, diverticulitis, acute viral gastroenteritis. Numerous other intra-abdominal pathologies could be suspected. Will treat as above and disposition pending findings. Change of shift and Dr. Murillo will assume care at this time. He will follow up labs and imaging results. Also arrange disposition. <Abiodun Zimmerman MD - Last Filed: 05/10/25 07:55> [age] year white male with a history of ulcerative colitis and constipation , as well as ileus, presents with nausea vomiting that is acute over the last 4-5 hours. He has had a history of ileus by his report. Will do a CT of his abdomen pelvis with IV contrast. Will check laboratory studies, will give him IV fluid, IV morphine for pain control and IV Zofran. Differential would include ileus, flare of ulcerative colitis, diverticulitis, acute viral gastroenteritis. Numerous other intra-abdominal pathologies could be suspected. Will treat as above and disposition pending findings. Change of shift and Dr. Murillo will assume care at this time. He will follow up labs and imaging results. Also arrange disposition. Patient signed out to Dr. Murillo at shift change-4:[address] Murillo will recheck labs and CT imaging. Labs show: WBC 11.2, hemoglobin 15.4, platelet count 239. Sodium 135, potassium 4.2, BUN 22, creatinine 0.8, glucose 198. LFTs are normal. CRP is 1.6 Lipase is normal at 59. (amylaseis less sensitive and specific than lipase but is slightly elevated at 90) Venous lactic is 2.4. Because of elevated lactic acid Dr. Murillo ordered initial L of saline with a recheck lactic. Suspect related to dehydration. CT scan showed IMPRESSION: 1. There is a small bowel obstruction with a focal transition point in the right mid abdomen. 2. There is a rectal stool ball measuring 8.7 cm, likely reflecting constipation. Recheck the patient at about 5:45 p.m.. He was having increasing pain. Dilaudid ordered. Discussed the labs and CT findings and the patient his . They report that he has a history of several episodes similar to this in the past which have been labeled as ?ileus. ?. These have all resolved in the hospital but several times he has required admission for couple of days and NG tube placement. Based on the description I suspect that he probably has had previous episodes of small-bowel obstruction. Patient notes that he has needed mass Ativan to tolerate NG tube placement in the past. I ordered Dilaudid for pain. NG tube placement and p.r.n. Ativan if needed. Discussed with our surgeon, Dr. Bailey at about 5:55 p.m.. She will agree to consult with the patient. She agrees that this point there is no need for immediate surgical intervention Paged our hospitalist, Dr. Luu at 6:00 p.m.. She accepts this patient for admission. She will manage his Parkinson's meds by periodic administration through NG tube with breaks suction NG tube placement was delayed. Nurses requested that we delay placement until the patient gets to the med surge floor. This will be done shortly after 7:00 p.m.. Patient admitted to med floor <Chuckie Murillo MD - Last Filed: 05/06/25 18:58> Lab Data Labs: Lab Results 05/06/25 05/06/25 Range/Units 15:35 15:40 WBC 11.22 H (4.50-11.00) K/uL RBC 4.89 (4.30-5.90) m/uL Hgb 15.4 (13.5-17.5) gm/dL Hct 46.3 (37.0-53.0) % MCV 95 (80-100) fL MCH 32 (26-34) pg MCHC 33 (32-36) gm/dL RDW Coeff of Jaimie 12.4 (11.5-15.5) % Plt Count 239 (140-440) K/uL Neut % (Auto) 77.6 H (42.0-72.0) % Lymph % (Auto) 15.4 L (20-44) % Millard % (Auto) 6.2 (0.0-11.0) % Eos % (Auto) 0.3 (0.0-7.0) % Baso % (Auto) 0.1 (0.0-3.0) % Neut # (Auto) 8.70 H (1.7-7.0) K/uL Lymph # (Auto) 1.70 (0.90-2.90) K/uL Millard # (Auto) 0.70 (0.00-0.90) K/UL Eos # (Auto) 0.00 (0.00-0.50) K/uL Baso # (Auto) 0.00 (0.00-0.30) K/uL Abs Immat Gran (auto) 0.00 (0.00-0.30) K/uL Imm/Tot Granulo (auto) 0.4 % Sodium 135 (135-149) mmol/L Potassium 4.2 (3.6-5.1) mmol/L Chloride 99 (96-114) mmol/L Carbon Dioxide 28 (20-32) mmol/L Anion Gap 8 (7-15) mEq/L BUN 22 (7-30) mg/dL Creatinine 0.8 (0.5-1.5) mg/dL Estimated Creat Clear 50.35 Estimated GFR 86 ml/min Glucose 198 H (60-115) mg/dL Lactate 2.4 H (0.5-1.9) mmol/L Calcium 10.1 (8.4-10.6) mg/dL Total Bilirubin 0.9 (0.1-1.5) mg/dL Direct Bilirubin 0.2 (0.0-0.5) mg/dL AST 29 (12-35) U/L ALT 12 (4-50) U/L Alkaline Phosphatase 127 (40-150) U/L C-Reactive Protein 1.6 H (0.5-1.0) mg/dL Total Protein 8.6 H (6.0-8.3) g/dL Albumin 4.9 (3.3-5.0) g/dL Amylase 90 H (18-89) U/L Lipase 59 (23-300) U/L POC Creatinine Cancelled <Abiodun Zimmerman MD - Last Filed: 05/10/25 07:55> Lab Results 05/06/25 05/06/25 Range/Units 15:35 15:40 WBC 11.22 H (4.50-11.00) K/uL RBC 4.89 (4.30-5.90) m/uL Hgb 15.4 (13.5-17.5) gm/dL Hct 46.3 (37.0-53.0) % MCV 95 (80-100) fL MCH 32 (26-34) pg MCHC 33 (32-36) gm/dL RDW Coeff of Jaimie 12.4 (11.5-15.5) % Plt Count 239 (140-440) K/uL Neut % (Auto) 77.6 H (42.0-72.0) % Lymph % (Auto) 15.4 L (20-44) % Millard % (Auto) 6.2 (0.0-11.0) % Eos % (Auto) 0.3 (0.0-7.0) % Baso % (Auto) 0.1 (0.0-3.0) % Neut # (Auto) 8.70 H (1.7-7.0) K/uL Lymph # (Auto) 1.70 (0.90-2.90) K/uL Millard # (Auto) 0.70 (0.00-0.90) K/UL Eos # (Auto) 0.00 (0.00-0.50) K/uL Baso # (Auto) 0.00 (0.00-0.30) K/uL Abs Immat Gran (auto) 0.00 (0.00-0.30) K/uL Imm/Tot Granulo (auto) 0.4 % Sodium 135 (135-149) mmol/L Potassium 4.2 (3.6-5.1) mmol/L Chloride 99 (96-114) mmol/L Carbon Dioxide 28 (20-32) mmol/L Anion Gap 8 (7-15) mEq/L BUN 22 (7-30) mg/dL Creatinine 0.8 (0.5-1.5) mg/dL Estimated Creat Clear 50.35 Estimated GFR 86 ml/min Glucose 198 H (60-115) mg/dL Lactate 2.4 H (0.5-1.9) mmol/L Calcium 10.1 (8.4-10.6) mg/dL Total Bilirubin 0.9 (0.1-1.5) mg/dL Direct Bilirubin 0.2 (0.0-0.5) mg/dL AST 29 (12-35) U/L ALT 12 (4-50) U/L Alkaline Phosphatase 127 (40-150) U/L C-Reactive Protein 1.6 H (0.5-1.0) mg/dL Total Protein 8.6 H (6.0-8.3) g/dL Albumin 4.9 (3.3-5.0) g/dL Amylase 90 H (18-89) U/L Lipase 59 (23-300) U/L POC Creatinine Cancelled <Chuckie Murillo MD - Last Filed: 05/06/25 18:58> Discharge Plan Discharge Clinical Impression: Acute nausea with nonbilious vomiting, Ulcerative colitis, Constipation by delayed colonic transit, Parkinson disease <Abiodun Zimmerman MD - Last Filed: 05/10/25 07:55> Condition: Improved <Abiodun Zimmerman MD - Last Filed: 05/10/25 07:55> Activity Level: Activity as Tolerated <Abiodun Zimmerman MD - Last Filed: 05/10/25 07:55> Activity as Tolerated <Chuckie Murillo MD - Last Filed: 05/06/25 18:58> Discharge Diet: High Fiber <Abiodun Zimmerman MD - Last Filed: 05/10/25 07:55> High Fiber <Chuckie Murillo MD - Last Filed: 05/06/25 18:58>
[2025-05-06 15:46] LABS: Lactate* 2.4 mmol/L (0.5-1.9)
[2025-05-06 15:48] LABS: Hematocrit 46.3 % (37.0-53.0); Hemoglobin* 15.4 gm/dL (13.5-17.5); Immature Granulocytes Abs Auto 0.00 K/uL (0.00-0.30); Immature Granulocytes Pct Auto 0.4 %; Lymphocytes Absolute Auto 1.70 K/uL (0.90-2.90); Mean Corpuscular HGB Conc 33 gm/dL (32-36); Mean Corpuscular Hemoglobin 32 pg (26-34); Mean Corpuscular Volume 95 fL (80-100); RDW Coefficient of Variation % 12.4 % (11.5-15.5); Red Blood Count 4.89 m/uL (4.30-5.90); Slide Review Reflex No; White Blood Count* 11.22 K/uL (4.50-11.00)
[2025-05-06] MEDS: 0.9 % SODIUM CHLORIDE 500 ML 500 ML IV (15:55)
[2025-05-06] MEDS: ONDANSETRON 2 MG/ML inj 4 MG IVP (15:56)
[2025-05-06 16:01] LABS: Albumin* 4.9 g/dL (3.3-5.0); Chloride* 99 mmol/L (96-114); Sodium* 135 mmol/L (135-149)
[2025-05-06 16:02] LABS: Potassium* 4.2 mmol/L (3.6-5.1)
[2025-05-06 16:04] LABS: Blood Urea Nitrogen* 22 mg/dL (7-30); Creatinine* 0.8 mg/dL (0.5-1.5); Est. Creatinine Clearance* 50.35; Estimated Glomerular Filt Rate 86 ml/min
[2025-05-06 16:05] LABS: Alanine Aminotransferase* 12 U/L (4-50); Alkaline Phosphatase* 127 U/L (40-150); Anion Gap 8 mEq/L (7-15); Aspartate Amino Transferase* 29 U/L (12-35); Bilirubin Direct* 0.2 mg/dL (0.0-0.5); Bilirubin Total* 0.9 mg/dL (0.1-1.5); Calcium* 10.1 mg/dL (8.4-10.6); Carbon Dioxide* 28 mmol/L (20-32); Glucose* 198 mg/dL (60-115); Total Protein* 8.6 g/dL (6.0-8.3)
--- NOTE | 2025-05-06 19:03 | PM.IMHP1 ---
Assessment and Plan Assessment and plan (1) Small bowel obstruction: Problem comment: -CT showed small bowel obstruction with a focal transition point in the right mid abdomen. There is a rectal stool ball measuring 8.7 cm, likely reflecting constipation. -Dr Perez was contacted by ED and she recs NG tube, NPO & IVF. -frequent exams -pain management. 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 Hospitalist- H&P: JOLANTA History of Present Illness Date Seen: 05/06/25 Chief complaint: nausea Narrative: Cesar Sorto is a 89 year old male with past medical history of Parkinson disease, ulcerative colitis, neuropathy, dysphagia, chronic constipation and depression who presents to the ED with abdominal pain (diffuse in nature) in addition to nausea and vomiting that started around 10:00 a.m. this morning. Patient has history of ileus previously, but this time CT scan showed a small-bowel obstruction. Patient has history of ulcerative colitis but he never had any abdominal surgeries before. Hx of chronic constipation. At the ED CT scan showed a small bowel obstruction with a focal transition point in the right mid abdomen. There is a rectal stool ball measuring 8.7 cm, likely reflecting constipation. Patient's labs were unremarkable with a mild elevation of WBCs, CRP and an elevated level of lactate at 2.4. Dr Perez was contacted by ED and she recs NG tube, NPO & IVF. Patient was admitted for further evaluation and management. Review of Systems Status of ROS: Reports: 6 or more systems reviewed and unremarkable except as noted in History and below Medical Decision Making Medical Decision Making Has patient completed a Health Care Directive: No PFSH PFSH Medical History Fatigue ?R53.83 - Other fatigue (ICD-10) Enrolled in chronic care management ?Z78.9 - Other specified health status (ICD-10) Surgical History History of microdiscectomy ?Z98.890 - Other specified postprocedural states (ICD-10) History of colonoscopy ?Z98.890 - Other specified postprocedural states (ICD-10) Social History Smoking Status: Never smoker How often do you have a drink containing alcohol: never AUDIT-C Alcohol total score: 0 Non-prescribed substance use: denies use Meds Home Medications and Allergies Home Medications ?Medication ?Instructions ?Recorded ?Confirmed ?Type calcium 260 mg (phos,tribasic)-D3 1 tab PO QDAY 06/27/22 05/06/25 History 25 mcg-herbal 50 mg chewable tablet (Alive Calcium-Vitamin D3) latanoprost 0.005 % eye drops 1 drp ophthalmic (eye) DAILY 06/27/22 04/13/25 History mupirocin 2 % topical ointment 1 applic topical TID #15 grams 01/16/24 04/13/25 Rx naloxegol 25 mg tablet (Movantik) 25 mg PO QAM 02/19/24 05/06/25 History amantadine HCl 100 mg capsule 100 mg PO QDAY 07/04/24 05/06/25 History carbidopa 25 mg-levodopa 100 mg 1 tab PO 3XD 07/04/24 05/06/25 History tablet levothyroxine 25 mcg tablet 25 mcg PO DAILY #90 tabs 07/04/24 05/06/25 Rx linaclotide 145 mcg capsule 145 mcg PO QAM #90 caps 07/04/24 05/06/25 Rx (Linzess) omeprazole 20 mg capsule,delayed 20 mg PO QDAY #90 caps 08/12/24 05/06/25 Rx release budesonide-formoterol HFA 80 2 puff inhalation BID PRN Reactive 12/05/24 05/06/25 Rx mcg-4.5 mcg/actuation aerosol airways #10.2 grams inhaler (Symbicort) pregabalin 50 mg capsule (Lyrica) 50 mg PO BID #180 caps 03/16/25 05/06/25 Rx duloxetine 60 mg capsule,delayed 60 mg PO QDAY #90 caps 04/13/25 05/06/25 Rx release (Cymbalta) tamsulosin 0.4 mg capsule 0.4 mg PO DAILY #90 caps 04/13/25 05/06/25 Rx Allergies Allergy/AdvReac Type Severity Reaction Status Date / Time No Known Drug Allergies Allergy Verified 04/13/25 15:01 Exam Narrative: Exam Narrative: Physical exam GENERAL: No acute distress. HEAD AND NECK: Atraumatic, normocephalic CARDIOVASCULAR: RRR. Normal S1, S2. No murmurs. RESPIRATORY: Clear to auscultation B/L. Good air entry B/L. GASTROINTESTINAL: Diffusely tender to palpation. No rigidity. NEUROLOGY: Alert, awake Const: Vital Signs, click to edit/add: Vital Signs - 24 hr 05/06/25 15:21 05/06/25 16:55 05/06/25 17:00 Temperature 96.3 F L Pulse Rate 83 78 Pulse Rate [Pulse Oximeter] 85 Respiratory Rate 20 Blood Pressure Blood Pressure [Ri ght Upper Arm] 167/91 H Pulse Oximetry 99 95 100 Oxygen Delivery Me thod Room Air Oxygen Flow Rate 05/06/25 17:02 05/06/25 17:15 05/06/25 17:37 Temperature Pulse Rate 83 85 82 Pulse Rate [Pulse Oximeter] Respiratory Rate Blood Pressure 162/86 H Blood Pressure [Ri ght Upper Arm] Pulse Oximetry 99 100 97 Oxygen Delivery Me thod Oxygen Flow Rate 05/06/25 17:45 05/06/25 18:00 05/06/25 18:21 Temperature Pulse Rate 87 92 87 Pulse Rate [Pulse Oximeter] Respiratory Rate Blood Pressure Blood Pressure [Ri ght Upper Arm] Pulse Oximetry 100 99 100 Oxygen Delivery Me thod Oxygen Flow Rate 05/06/25 18:22 05/06/25 18:30 05/06/25 18:32 Temperature Pulse Rate 90 84 85 Pulse Rate [Pulse Oximeter] Respiratory Rate Blood Pressure 160/96 H 168/97 H Blood Pressure [Ri ght Upper Arm] Pulse Oximetry 99 99 97 Oxygen Delivery Me thod Oxygen Flow Rate 05/06/25 18:45 Temperature Pulse Rate 102 H Pulse Rate [Pulse Oximeter] Respiratory Rate Blood Pressure Blood Pressure [Ri ght Upper Arm] Pulse Oximetry 95 Oxygen Delivery Me thod Nasal Cannula Oxygen Flow Rate 2 Hospitalist - H&P: Result Labs Labs: Short CBC 05/06/25 Range/Units 15:35 WBC 11.22 H (4.50-11.00) K/uL Hgb 15.4 (13.5-17.5) gm/dL Hct 46.3 (37.0-53.0) % Plt Count 239 (140-440) K/uL BMP 05/06/25 15:35 Sodium 135 Potassium 4.2 Chloride 99 Carbon Dioxide 28 BUN 22 Creatinine 0.8 Glucose 198 H Calcium 10.1 Liver Function 05/06/25 Range/Units 15:35 Total Bilirubin 0.9 (0.1-1.5) mg/dL Direct Bilirubin 0.2 (0.0-0.5) mg/dL AST 29 (12-35) U/L ALT 12 (4-50) U/L Alkaline Phosphatase 127 (40-150) U/L Albumin 4.9 (3.3-5.0) g/dL Imaging CT scan - abdomen: Radiologist's impression: TECHNIQUE: CT abdomen and pelvis acquired with 79 cc Isovue 370 IV contrast. COMPARISON: None. FINDINGS: Lower chest: Mild bibasilar subsegmental atelectasis/scarring, [id number]. Liver: Unremarkable. Normal in size and attenuation. No suspicious masses. Gallbladder and bile ducts: Unremarkable. No stones or inflammation. No biliary dilatation. Pancreas: Unremarkable. No mass or inflammation. Spleen: Unremarkable. Normal in size. No masses. Adrenal glands: Unremarkable. No nodules. Kidneys: Subcentimeter cortical hypodensity, too small to characterize. No hydroureteronephrosis. Punctate nonobstructive renal calculi. GI tract: Small hiatal hernia. Colonic diverticulosis. Dilatation of the small bowel to 3.5 cm with a focal transition point in the mid ileum in the right mid abdomen (4/50). Mild interloop edema about the bowel loops near the transition point. No evident differential bowel wall enhancement to indicate ischemia. There is a rectal stool ball measuring 8.7 cm (2/115). Normal appendix. Vasculature: Abdominal aorta is normal in caliber. Mesenteric arteries are patent. Lymph nodes: No lymphadenopathy. Peritoneum/Abdominal Wall: Unremarkable. No sign of mass or infiltration. No free air or significant free fluid. Pelvis: Unremarkable. Bones: Unremarkable for age. IMPRESSION: 1. There is a small bowel obstruction with a focal transition point in the right mid abdomen. 2. There is a rectal stool ball measuring 8.7 cm, likely reflecting constipation. Please note that all CT scans at this facility use dose modulation, iterative reconstruction, and/or weight-based dosing when appropriate to reduce radiation dose to as low as reasonably achievable.
[2025-05-06 19:33] LABS: Lactate* 1.6 mmol/L (0.5-1.9)
--- NOTE | 2025-05-06 20:04 | CRLHL7_ITS ---
For Patients: As a result of the Century Cures Act, medical imaging exams and procedure reports are released immediately into your electronic medical record. You may view this report before your referring provider. If you have questions, please contact your health care provider. Indication: NG tube placement. Technique: Abdomen 2 view. Comparison: CT abdomen and pelvis from the same day. Findings/Impression: Enteric tube tip in the stomach fundus, in appropriate position. Nonobstructive bowel gas pattern. Air-distended segment of colon in the left hemiabdomen. No evidence for free air. Excreted IV contrast within the urinary collecting systems and bladder. Mild left basilar atelectasis versus infiltrate. Partially imaged right shoulder arthroplasty. The osseous structures are otherwise unremarkable for age. Dictated by Chuckie Christensen MD @ 05/07/2025 1:44:54 AM (Electronically Signed)
[2025-05-06] MEDS: CARBIDOPA-LEVODOPA 25-100 TABLET 1 TAB PO (21:44)
[2025-05-06] MEDS: PREGABALIN 50 MG CAPSULE PO (21:44)
[2025-05-06] MEDS: SODIUM CHLORIDE 0.9 % (FLUSH) 10 ML SYRINGE 5 ML IVF (21:48)
--- NOTE | 2025-05-06 23:09 | PC.NURSE ---
[id number]: Pt. arrives from ED. Pt. able to shift himself onto bed from ED bed; did not AMB was drowsy from meds given in ED; see EMAR. Pt. is AOX4, but very sleepy. Pt. 's is bedside. Pt. NG placed, X ray confirmed placement. Pt. had output from NG. Pt. fell asleep on R side and RN arrived pt was asleep w/ NG pulled out laying on bed next to him. notified and made plan to reassess if replacement needed @ 2330. PO meds given ; tolerated fine. Pt. AMB to BR to void w/ X2 assist GB & W. Sips of water. VSS, HR slightly elevated; notified.
[2025-05-07] VITALS (9 sets, daily range): BP systolic 115–146; BP diastolic 84–95; PULSE 86–113; RESP 16–24; TEMP 36.4–36.9; O2SAT 94–97
[2025-05-07 06:24] LABS: Hematocrit 40.6 % (37.0-53.0); Hemoglobin* 13.6 gm/dL (13.5-17.5); Mean Corpuscular HGB Conc 34 gm/dL (32-36); Mean Corpuscular Hemoglobin 32 pg (26-34); Mean Corpuscular Volume 95 fL (80-100); Red Blood Count 4.28 m/uL (4.30-5.90); White Blood Count* 11.26 K/uL (4.50-11.00)
[2025-05-07] MEDS: LEVOTHYROXINE 25 MCG TABLET PO (06:25)
[2025-05-07 06:28] LABS: Slide Review Reflex No
--- NOTE | 2025-05-07 06:37 | PC.NURSE ---
Pt alert and oriented but forgetful and drowsy. Pt had no complaints of pain but would wake up and fall right back to sleep with any cares. Pt up with assist of one with walker and gait belt. ?
[2025-05-07 06:38] LABS: Albumin* 3.8 g/dL (3.3-5.0); Chloride* 105 mmol/L (96-114); Potassium* 4.2 mmol/L (3.6-5.1); Sodium* 136 mmol/L (135-149)
[2025-05-07 06:41] LABS: Alanine Aminotransferase* 7 U/L (4-50); Alkaline Phosphatase* 84 U/L (40-150); Anion Gap 5 mEq/L (7-15); Aspartate Amino Transferase* 24 U/L (12-35); Bilirubin Total* 0.7 mg/dL (0.1-1.5); Blood Urea Nitrogen* 19 mg/dL (7-30); Carbon Dioxide* 26 mmol/L (20-32); Creatinine* 0.7 mg/dL (0.5-1.5); Est. Creatinine Clearance* 50.35; Estimated Glomerular Filt Rate 89 ml/min; Total Protein* 6.7 g/dL (6.0-8.3)
[2025-05-07 06:42] LABS: Calcium* 8.8 mg/dL (8.4-10.6); Glucose* 94 mg/dL (60-115)
--- NOTE | 2025-05-07 07:46 | PM.GSCN ---
History of Present Illness Consult details Date Seen: 05/07/25 Consult date: 05/07/25 Narrative: 89-year-old male with no previous history of abdominal surgery was admitted to the hospital with small-bowel obstruction and I was asked by Dr. Murillo to see him in consultation. Patient states that yesterday around 10 in the morning he all of a sudden developed periumbilical sharp pain. The pain continued and he describes it as ?crampy?. The pain comes in waves. He also has bouts of nausea when the pain becomes more severe. Patient has not passed gas yesterday. His last bowel movement was 2 days ago. Patient has history of Parkinson's disease and does have constipation. Patient has bowel movements are usually every other day with Linzess and senna. Patient had multiple previous episodes of ?ileus? at outside hospitals. His last one was about 3 years ago. He was also diagnosed with ulcerative colitis over 15 years ago. Patient was initially treated for Ulcerative colitis and was in remission. His medication was then stopped but 1-2 years ago his primary care again restarted him on potassium. However, because patient is asymptomatic he has not been compliant with that medication. Patient's last colonoscopy was approximately 7 years ago. He was having regular colonoscopies prior to that. Patient is also on chronic hydrocodone for leg pain. I personally reviewed his workup in the emergency room. He was found to have elevated WBC of 11. His albumin was 3.8. An abdominal CT was obtained that showed air and the descending colon, there were loops of small bowel that were dilated and decompressed with a transition point in the middle abdomen. There was also abundance of rectal stool. Review of Systems Narrative: General: no fevers HENT: no problems swallowing CV: no shortness of breath Resp: no cough GI: No nausea, vomiting, abdominal pain : no dysuria, no increased urinary frequency, no hematuria Skin: no new rashes Musculoskeletal: no back pain Neuro: no muscle weakness Psyche: no depression, no anxiety PFSH PFSH Medical History Fatigue ?R53.83 - Other fatigue (ICD-10) Enrolled in chronic care management ?Z78.9 - Other specified health status (ICD-10) Surgical History History of microdiscectomy ?Z98.890 - Other specified postprocedural states (ICD-10) History of colonoscopy ?Z98.890 - Other specified postprocedural states (ICD-10) Social History What is your current living situation?: I presently have a place to live Problems where you live: no known problems Problems where you live details: n/a In the past 12 months, utilities in danger of being shut off: no In past 12 months, lack of transportation kept you from medical appts, meetings, work, or getting things needed for daily living: no In the past 12 mos, have been you worried that your food would run out before you had money to buy more?: never true In the past 12 mos, the food you bought just didn't last and you didn't have money to buy more?: never true Highest level of school completed/degree received: Doctoral degree Smoking Status: Former smoker Do you use any of these nicotine containing products: None How often do you have a drink containing alcohol: never AUDIT-C Alcohol total score: 0 Non-prescribed substance use: denies use How often does anyone, including family, friends and others, physically hurt you: never How often does anyone, including family, friends and others, insult or talk down to you: never How often does anyone, including family, friends and others, threaten you with harm: never How often does anyone, including family, friends and others, scream or curse at you: never Meds Home Medications and Allergies Home Medications ?Medication ?Instructions ?Recorded ?Confirmed ?Type calcium 260 mg (phos,tribasic)-D3 1 tab PO QDAY 06/27/22 05/06/25 History 25 mcg-herbal 50 mg chewable tablet (Alive Calcium-Vitamin D3) latanoprost 0.005 % eye drops 1 drp ophthalmic (eye) HS 06/27/22 05/07/25 History mupirocin 2 % topical ointment 1 applic topical TID #15 grams 01/16/24 04/13/25 Rx naloxegol 25 mg tablet (Movantik) 25 mg PO QAM 02/19/24 05/06/25 History amantadine HCl 100 mg capsule 100 mg PO QDAY 07/04/24 05/06/25 History carbidopa 25 mg-levodopa 100 mg 1 tab PO 3XD 07/04/24 05/06/25 History tablet levothyroxine 25 mcg tablet 25 mcg PO DAILY #90 tabs 07/04/24 05/06/25 Rx linaclotide 145 mcg capsule 145 mcg PO QAM #90 caps 07/04/24 05/06/25 Rx (Linzess) omeprazole 20 mg capsule,delayed 20 mg PO QDAY #90 caps 08/12/24 05/06/25 Rx release budesonide-formoterol HFA 80 2 puff inhalation BID PRN Reactive 12/05/24 05/06/25 Rx mcg-4.5 mcg/actuation aerosol airways #10.2 grams inhaler (Symbicort) pregabalin 50 mg capsule (Lyrica) 50 mg PO BID #180 caps 03/16/25 05/06/25 Rx duloxetine 60 mg capsule,delayed 60 mg PO QDAY #90 caps 04/13/25 05/06/25 Rx release (Cymbalta) tamsulosin 0.4 mg capsule 0.4 mg PO DAILY #90 caps 04/13/25 05/06/25 Rx hydrocodone 5 mg-acetaminophen 325 1 tab PO Q4-6H PRN pain 05/07/25 05/07/25 History mg tablet mesalamine 500 mg capsule,extended 2,000 mg PO DAILY 05/07/25 05/07/25 History release (Pentasa) Allergies Allergy/AdvReac Type Severity Reaction Status Date / Time No Known Drug Allergies Allergy Verified 04/13/25 15:01 Exam Narrative: Exam Narrative: General appearance: Alert, cooperative, and in no distress Pulmonary: Chest symmetric, lungs clear bilaterally Cardiovascular Heart: Regular rate and rhythm, S1, S2, no murmurs/rubs/gallops Gastrointestinal Abdominal: soft, not distended, tender to palpation in the right upper quadrant, no peritoneal signs. Skin: Normal skin color, texture, and turgor. No rashes or lesions. Psychiatric: Alert, cooperative, normal affect. Const: Vital Signs, click to edit/add: Vital Signs - 24 hr 05/06/25 15:21 05/06/25 16:55 05/06/25 17:00 Temperature 96.3 F L Pulse Rate 83 78 Pulse Rate [Pulse Oximeter] 85 Pulse Rate [Right Pulse Oximeter] Respiratory Rate 20 Blood Pressure Blood Pressure [Ri ght Arm] Blood Pressure [Ri ght Upper Arm] 167/91 H Pulse Oximetry 99 95 100 Oxygen Delivery Me thod Room Air Oxygen Flow Rate 05/06/25 17:02 05/06/25 17:15 05/06/25 17:37 Temperature Pulse Rate 83 85 82 Pulse Rate [Pulse Oximeter] Pulse Rate [Right Pulse Oximeter] Respiratory Rate Blood Pressure 162/86 H Blood Pressure [Ri ght Arm] Blood Pressure [Ri ght Upper Arm] Pulse Oximetry 99 100 97 Oxygen Delivery Me thod Oxygen Flow Rate 05/06/25 17:45 05/06/25 18:00 05/06/25 18:21 Temperature Pulse Rate 87 92 87 Pulse Rate [Pulse Oximeter] Pulse Rate [Right Pulse Oximeter] Respiratory Rate Blood Pressure Blood Pressure [Ri ght Arm] Blood Pressure [Ri ght Upper Arm] Pulse Oximetry 100 99 100 Oxygen Delivery Me thod Oxygen Flow Rate 05/06/25 18:22 05/06/25 18:30 05/06/25 18:32 Temperature Pulse Rate 90 84 85 Pulse Rate [Pulse Oximeter] Pulse Rate [Right Pulse Oximeter] Respiratory Rate Blood Pressure 160/96 H 168/97 H Blood Pressure [Ri ght Arm] Blood Pressure [Ri ght Upper Arm] Pulse Oximetry 99 99 97 Oxygen Delivery Me thod Oxygen Flow Rate 05/06/25 18:45 05/06/25 19:00 05/06/25 22:06 Temperature 97.9 F 97.9 F Pulse Rate 102 H Pulse Rate [Pulse Oximeter] Pulse Rate [Right Pulse Oximeter] 96 Respiratory Rate 14 14 Blood Pressure Blood Pressure [Ri ght Arm] 159/97 H 159/97 H Blood Pressure [Ri ght Upper Arm] Pulse Oximetry 95 96 96 Oxygen Delivery Me thod Nasal Cannula Room Air Room Air Oxygen Flow Rate 2 05/06/25 23:29 05/06/25 23:50 05/07/25 03:06 Temperature 98.5 F 97.9 F Pulse Rate 101 H Pulse Rate [Pulse Oximeter] Pulse Rate [Right Pulse Oximeter] 106 H 105 H Respiratory Rate 20 20 Blood Pressure Blood Pressure [Ri ght Arm] 157/94 H 115/84 Blood Pressure [Ri ght Upper Arm] Pulse Oximetry 96 94 Oxygen Delivery Me thod Room Air Room Air Oxygen Flow Rate 05/07/25 07:00 Temperature Pulse Rate 113 H Pulse Rate [Pulse Oximeter] Pulse Rate [Right Pulse Oximeter] Respiratory Rate Blood Pressure Blood Pressure [Ri ght Arm] Blood Pressure [Ri ght Upper Arm] Pulse Oximetry Oxygen Delivery Me thod Oxygen Flow Rate Results Labs Labs: Abnormal lab results 05/06/25 05/07/25 Range/Units 15:35 05:58 WBC 11.22 H 11.26 H (4.50-11.00) K/uL RBC 4.28 L (4.30-5.90) m/uL Neut % (Auto) 77.6 H (42.0-72.0) % Lymph % (Auto) 15.4 L (20-44) % Neut # (Auto) 8.70 H (1.7-7.0) K/uL Anion Gap 5 L (7-15) mEq/L Glucose 198 H (60-115) mg/dL Lactate 2.4 H (0.5-1.9) mmol/L C-Reactive Protein 1.6 H (0.5-1.0) mg/dL Total Protein 8.6 H (6.0-8.3) g/dL Amylase 90 H (18-89) U/L Diabetes panel 05/06/25 05/07/25 Range/Units 15:35 05:58 Sodium 135 136 (135-149) mmol/L Potassium 4.2 4.2 (3.6-5.1) mmol/L Chloride 99 105 (96-114) mmol/L Carbon Dioxide 28 26 (20-32) mmol/L BUN 22 19 (7-30) mg/dL Creatinine 0.8 0.7 (0.5-1.5) mg/dL Glucose 198 H 94 (60-115) mg/dL Calcium 10.1 8.8 (8.4-10.6) mg/dL AST 29 24 (12-35) U/L ALT 12 7 (4-50) U/L Alkaline Phosphatase 127 84 (40-150) U/L Total Protein 8.6 H 6.7 (6.0-8.3) g/dL Albumin 4.9 3.8 (3.3-5.0) g/dL Calcium panel 05/06/25 05/07/25 Range/Units 15:35 05:58 Calcium 10.1 8.8 (8.4-10.6) mg/dL Albumin 4.9 3.8 (3.3-5.0) g/dL Pituitary panel 05/06/25 05/07/25 Range/Units 15:35 05:58 Sodium 135 136 (135-149) mmol/L Potassium 4.2 4.2 (3.6-5.1) mmol/L Chloride 99 105 (96-114) mmol/L Carbon Dioxide 28 26 (20-32) mmol/L BUN 22 19 (7-30) mg/dL Creatinine 0.8 0.7 (0.5-1.5) mg/dL Glucose 198 H 94 (60-115) mg/dL Calcium 10.1 8.8 (8.4-10.6) mg/dL Adrenal panel 05/06/25 07 Range/Units 15:35 05:58 Sodium 135 136 (135-149) mmol/L Potassium 4.2 4.2 (3.6-5.1) mmol/L Chloride 99 105 (96-114) mmol/L Carbon Dioxide 28 26 (20-32) mmol/L BUN 22 19 (7-30) mg/dL Creatinine 0.8 0.7 (0.5-1.5) mg/dL Glucose 198 H 94 (60-115) mg/dL Calcium 10.1 8.8 (8.4-10.6) mg/dL Total Bilirubin 0.9 0.7 (0.1-1.5) mg/dL AST 29 24 (12-35) U/L ALT 12 7 (4-50) U/L Alkaline Phosphatase 127 84 (40-150) U/L Total Protein 8.6 H 6.7 (6.0-8.3) g/dL Albumin 4.9 3.8 (3.3-5.0) g/dL All other labs normal. Progress Note:A&P Assessment and plan (1) Small bowel obstruction: Status: Acute Plan 89-year-old male with Parkinson's disease and history of ulcerative colitis presents with small-bowel obstruction. I discussed with the patient his laboratory and CT findings. Patient has not being treated for his ulcerative colitis in the last few years due to noncompliance. This noncompliance was mostly related to patient not having symptoms. Patient's CT shows a transition point in the right upper quadrant. There was no mass, inflammation, or abscess. Patient had multiple previous episodes of ileus, which I think were small-bowel obstructions. I discussed with the patient and his family that since has no history of intra-abdominal history, it would be unusual that his small bowel obstruction is caused by adhesions. there is no mass or inflammation found on CT, which could be the other causes of his obstruction. I discussed with the patient and his family that given his age, we could treat him conservatively. Patient already pulled out his NG tube and has bad gag reflex. He is not vomiting so we could continue treatment without NG tube. If patient small bowel obstruction resolves with non operative management, I discussed with the family that we would not have the cause of the small-bowel obstruction. They are okay with that and do not want to proceed with surgery. I think this is reasonable at patient's age. When patient was reexamined in the afternoon he pass gas twice. We will continue with conservative treatment. We will continue with NPO today. If patient continues to pass gas today, will start him on clears tomorrow. We will also give him a suppository since he had a large stool burden in the rectum In the setting of chronic constipation.
[2025-05-07] MEDS: CARBIDOPA-LEVODOPA 25-100 TABLET 1 TAB PO ×3 (08:30→21:27)
[2025-05-07] MEDS: DULOXETINE 30 MG CAPSULE DR 60 MG PO (08:30)
[2025-05-07] MEDS: TAMSULOSIN HCL 0.4 MG CAPSULE PO (08:30)
[2025-05-07] MEDS: PREGABALIN 50 MG CAPSULE PO ×2 (08:31→21:28)
[2025-05-07] MEDS: SODIUM CHLORIDE 0.9 % (FLUSH) 10 ML SYRINGE 5 ML IVF (08:33)
[2025-05-07] MEDS: MORPHINE 4 MG/ML INJ IVP (10:26)
[2025-05-07] MEDS: ONDANSETRON ODT 4 MG TAB PO (10:26)
--- NOTE | 2025-05-07 15:41 | PM.IMPN1 ---
Assessment and Plan Assessment and plan (1) Small bowel obstruction: Problem comment: -CT showed small bowel obstruction with a focal transition point in the right mid abdomen. There is a rectal stool ball measuring 8.7 cm, likely reflecting constipation. -Dr Perez was contacted by ED and she recs NG tube, NPO & IVF. -frequent exams -pain management. Status: Acute (2) Fecal impaction in rectum: Problem comment: -There is a rectal stool ball measuring 8.7 cm, likely reflecting constipation. -biscodyl suppository 05/07 Status: Acute (3) Parkinson disease: Problem comment: -on levodopa carbidopa and amantadine when able Status: Chronic (4) Hypothyroidism: Problem comment: Resume levothyroxine, when able Status: Chronic (5) Constipation by delayed colonic transit: Problem comment: Follows with [facility]; Tiffanie cobian -chronic opiods for spinal stenosis Status: Acute Subjective Date Seen: 05/07/25 Interval history: Daily Progress Note - Hospital Medicine #: 2 CC: SBO, recurrent 24 HOUR UPDATE: passing gas; pulled his own NG out. hiccups and belching this am - now improved. ice chips x 1. rounded with gen surg. discussed options. family relayed he would definitely not want surgery - as patient was sleeping. no evidence of worsening obstruction or ischemic bowel. now passing gas. Notable Labs, Micro, Rads, Interventions: Mildly elevated total white blood cell count. Otherwise CBC reassuring. Chemistries reassuring. Objective: Vitals: see above Lungs: Clear. Cardiac: S1S2. Disposition/Potential discharge - Today I spent 50minutes seeing the patient, reviewing Expanse and EPIC notes/diagnostics, discussing the care plan with our care time that includes social work, PT/OT, pharmacy, RT, residential and documenting my impressions and plan in the medical record. Prolonged Physician Services [id number] ([facility]) in conjunction with: [id number] (subsequent visit; 50 mins + 15 mins prolonged services = 65 mins total) I then went back for 15 mins to discuss the findings of ..... Alcohol 24902 >30 mins. We went over all the stigmata of alcoholism I see in this patient. I discussed the effects of chronic alcohol on the brain, liver, and heart. I recommended complete abstinence from alcohol and instructed on programs available at discharge from acute care. Smoking/Tobacco 06846 >10 mins. I went over the clinical stigmata of chronic tobacco use on the body. I explained the effect on the vasculature, lungs, heart, skin. I recommended complete abstinence from tobacco products and instructed on programs available at discharge from acute care. ACP first 30 mins [id number] I went over options for care during this current hospitalization and explained the difference between palliative care and hospice care. I described the likelihood of returning to previous functioning and what the options are going forward for care. Exam Const: Vital Signs, click to edit/add: Vital Signs - 24 hr 05/06/25 16:55 05/06/25 17:00 05/06/25 17:02 Temperature Pulse Rate 83 78 83 Pulse Rate [Right Pulse Oximeter] Respiratory Rate Blood Pressure 162/86 H Blood Pressure [Le ft Arm] Blood Pressure [Ri ght Arm] Pulse Oximetry 95 100 99 Oxygen Delivery Me thod Oxygen Flow Rate 05/06/25 17:15 05/06/25 17:37 05/06/25 17:45 Temperature Pulse Rate 85 82 87 Pulse Rate [Right Pulse Oximeter] Respiratory Rate Blood Pressure Blood Pressure [Le ft Arm] Blood Pressure [Ri ght Arm] Pulse Oximetry 100 97 100 Oxygen Delivery Me thod Oxygen Flow Rate 05/06/25 18:00 05/06/25 18:21 05/06/25 18:22 Temperature Pulse Rate 92 87 90 Pulse Rate [Right Pulse Oximeter] Respiratory Rate Blood Pressure 160/96 H Blood Pressure [Le ft Arm] Blood Pressure [Ri ght Arm] Pulse Oximetry 99 100 99 Oxygen Delivery Me thod Oxygen Flow Rate 05/06/25 18:30 05/06/25 18:32 05/06/25 18:45 Temperature Pulse Rate 84 85 102 H Pulse Rate [Right Pulse Oximeter] Respiratory Rate Blood Pressure 168/97 H Blood Pressure [Le ft Arm] Blood Pressure [Ri ght Arm] Pulse Oximetry 99 97 95 Oxygen Delivery Me thod Nasal Cannula Oxygen Flow Rate 2 05/06/25 19:00 05/06/25 22:06 05/06/25 23:29 Temperature 97.9 F 97.9 F Pulse Rate 101 H Pulse Rate [Right Pulse Oximeter] 96 Respiratory Rate 14 14 Blood Pressure Blood Pressure [Le ft Arm] Blood Pressure [Ri ght Arm] 159/97 H 159/97 H Pulse Oximetry 96 96 Oxygen Delivery Me thod Room Air Room Air Oxygen Flow Rate 05/06/25 23:50 05/07/25 03:06 05/07/25 07:00 Temperature 98.5 F 97.9 F Pulse Rate 113 H Pulse Rate [Right Pulse Oximeter] 106 H 105 H Respiratory Rate 20 20 Blood Pressure Blood Pressure [Le ft Arm] Blood Pressure [Ri ght Arm] 157/94 H 115/84 Pulse Oximetry 96 94 Oxygen Delivery Me thod Room Air Room Air Oxygen Flow Rate 05/07/25 07:00 05/07/25 07:00 05/07/25 11:00 Temperature 98.4 F 97.7 F Pulse Rate Pulse Rate [Right Pulse Oximeter] 108 H 108 H 110 H Respiratory Rate 24 24 16 Blood Pressure Blood Pressure [Le ft Arm] Blood Pressure [Ri ght Arm] 146/93 H 141/93 H Pulse Oximetry 96 97 Oxygen Delivery Sd thod Room Air Room Air Oxygen Flow Rate 05/07/25 15:00 05/07/25 15:00 Temperature 97.6 F Pulse Rate Pulse Rate [Right Pulse Oximeter] 102 H 102 H Respiratory Rate 20 20 Blood Pressure Blood Pressure [Le ft Arm] 141/87 H Blood Pressure [Ri ght Arm] Pulse Oximetry 97 Oxygen Delivery Me thod Room Air Oxygen Flow Rate Labs Labs: Laboratory Results - last 24 hr 05/06/25 05/06/25 05/06/25 15:35 15:40 19:28 WBC 11.22 H RBC 4.89 Hgb 15.4 Hct 46.3 MCV 95 MCH 32 MCHC 33 RDW Coeff of Jaimie 12.4 Plt Count 239 Neut % (Auto) 77.6 H Lymph % (Auto) 15.4 L [place] % (Auto) 6.2 Eos % (Auto) 0.3 Baso % (Auto) 0.1 Neut # (Auto) 8.70 H Lymph # (Auto) 1.70 [place] # (Auto) 0.70 Eos # (Auto) 0.00 Baso # (Auto) 0.00 Abs Immat Gran (auto) 0.00 Imm/Tot Granulo (auto) 0.4 Sodium 135 Potassium 4.2 Chloride 99 Carbon Dioxide 28 Anion Gap 8 BUN 22 Creatinine 0.8 Estimated Creat Clear 50.35 Estimated GFR 86 Glucose 198 H Lactate 2.4 H 1.6 Calcium 10.1 Magnesium Total Bilirubin 0.9 Direct Bilirubin 0.2 AST 29 ALT 12 Alkaline Phosphatase 127 C-Reactive Protein 1.6 H Total Protein 8.6 H Albumin 4.9 Amylase 90 H Lipase 59 POC Creatinine Cancelled 05/07/25 05:58 WBC 11.26 H RBC 4.28 L Hgb 13.6 Hct 40.6 MCV 95 MCH 32 MCHC 34 RDW Coeff of Jaimie Plt Count 241 Neut % (Auto) Lymph % (Auto) [place] % (Auto) Eos % (Auto) Baso % (Auto) Neut # (Auto) Lymph # (Auto) [place] # (Auto) Eos # (Auto) Baso # (Auto) Abs Immat Gran (auto) Imm/Tot Granulo (auto) Sodium 136 Potassium 4.2 Chloride 105 Carbon Dioxide 26 Anion Gap 5 L BUN 19 Creatinine 0.7 Estimated Creat Clear 50.35 Estimated GFR 89 Glucose 94 Lactate Calcium 8.8 Magnesium 2.0 Total Bilirubin 0.7 Direct Bilirubin AST 24 ALT 7 Alkaline Phosphatase 84 C-Reactive Protein Total Protein 6.7 Albumin 3.8 Amylase Lipase POC Creatinine
--- NOTE | 2025-05-07 18:23 | PC.NURSE ---
End of shift note? Patient was very cooperative and very pleasant throughout the shift. He was admitted for a SBO. Patient has had active upper bowel sounds but diminished in lower abdomen. Patient reports passing flatus since morning. Abdomen palpated in the morning, presenting round and rigid. By 15:00 assessment, abdomen had diminished in size and was softer to palpation. No reports of pain. Nausea is well controlled with medication. Patient moves well stand-by assist, using a cane. Lung sounds are clear bilaterally; heart sounds are regular but tachycardic throughout the day. Patient remains NPO. No SCDs in place due to patient walking frequently in his room and hallway. Patient had a large, well-formed bowel movement at 1800 today.?
[2025-05-07] MEDS: ACETAMINOPHEN 325 MG TABLET 650 MG PO (22:59)
[2025-05-08] VITALS (7 sets, daily range): BP systolic 109–126; BP diastolic 68–81; PULSE 70–116; RESP 14–18; TEMP 36.1–36.9; O2SAT 92–97
--- NOTE | 2025-05-08 04:51 | PC.NURSE ---
Pt rested well this night. Had one large BM for the previous nurse. No N/V. Afebrile. Reporting zero pain.
[2025-05-08] MEDS: LEVOTHYROXINE 25 MCG TABLET PO (05:38)
[2025-05-08 06:57] LABS: Hematocrit 38.8 % (37.0-53.0); Hemoglobin* 12.8 gm/dL (13.5-17.5); Mean Corpuscular HGB Conc 33 gm/dL (32-36); Mean Corpuscular Hemoglobin 32 pg (26-34); Mean Corpuscular Volume 97 fL (80-100); Red Blood Count 3.99 m/uL (4.30-5.90); White Blood Count* 7.77 K/uL (4.50-11.00)
[2025-05-08 07:01] LABS: Slide Review Reflex No
[2025-05-08 07:02] LABS: Chloride* 103 mmol/L (96-114); Potassium* 3.8 mmol/L (3.6-5.1); Sodium* 134 mmol/L (135-149)
[2025-05-08 07:05] LABS: Anion Gap 2 mEq/L (7-15); Blood Urea Nitrogen* 15 mg/dL (7-30); Calcium* 9.0 mg/dL (8.4-10.6); Carbon Dioxide* 29 mmol/L (20-32); Creatinine* 0.8 mg/dL (0.5-1.5); Est. Creatinine Clearance* 50.35; Estimated Glomerular Filt Rate 86 ml/min; Glucose* 76 mg/dL (60-115)
[2025-05-08] MEDS: CARBIDOPA-LEVODOPA 25-100 TABLET 1 TAB PO ×3 (08:38→20:54)
[2025-05-08] MEDS: DULOXETINE 30 MG CAPSULE DR 60 MG PO (08:38)
[2025-05-08] MEDS: TAMSULOSIN HCL 0.4 MG CAPSULE PO (08:38)
[2025-05-08] MEDS: SODIUM CHLORIDE 0.9 % (FLUSH) 10 ML SYRINGE 5 ML IVF ×2 (08:43→20:55)
--- NOTE | 2025-05-08 08:52 | PM.GSPN ---
Subjective Subjective Date Seen: 05/08/25 Interval history: Patient is doing well today. He had a bowel movement after suppository yesterday. He then also passed gas several times. He denies nausea vomiting. His abdominal pain is completely resolved. Exam Narrative: Exam Narrative: Abdomen is soft, not distended, not tender to palpation, no peritoneal signs. Const: Vital Signs, click to edit/add: Vital Signs - 24 hr 05/07/25 11:00 05/07/25 15:00 05/07/25 15:00 Temperature 97.7 F 97.6 F Pulse Rate Pulse Rate [Right Pulse Oximeter] 110 H 102 H 102 H Respiratory Rate 16 20 20 Blood Pressure [Le ft Arm] 141/87 H Blood Pressure [Ri ght Arm] 141/93 H Pulse Oximetry 97 97 Oxygen Delivery Me thod Room Air Room Air 05/07/25 15:00 05/07/25 20:24 05/07/25 22:38 Temperature 98.4 F Pulse Rate 103 H 109 H Pulse Rate [Right Pulse Oximeter] 108 H Respiratory Rate 16 Blood Pressure [Le ft Arm] Blood Pressure [Ri ght Arm] 141/91 H Pulse Oximetry 97 Oxygen Delivery Me thod Room Air 05/07/25 22:52 05/07/25 22:59 05/07/25 23:04 Temperature 98.4 F 98.4 F Pulse Rate Pulse Rate [Right Pulse Oximeter] 86 86 Respiratory Rate 16 16 Blood Pressure [Le ft Arm] 136/95 H Blood Pressure [Ri ght Arm] Pulse Oximetry 96 Oxygen Delivery Me thod Room Air 05/08/25 02:55 05/08/25 07:00 05/08/25 07:00 Temperature 98.4 F 97.9 F Pulse Rate 77 Pulse Rate [Right Pulse Oximeter] 82 Respiratory Rate 16 14 Blood Pressure [Le ft Arm] 114/81 121/78 Blood Pressure [Ri ght Arm] Pulse Oximetry 94 96 Oxygen Delivery Me thod Room Air Room Air 05/08/25 07:00 Temperature Pulse Rate Pulse Rate [Right Pulse Oximeter] 82 Respiratory Rate 14 Blood Pressure [Le ft Arm] Blood Pressure [Ri ght Arm] Pulse Oximetry Oxygen Delivery Me thod Progress Note:A&P Assessment and plan (1) Small bowel obstruction: Status: Acute Plan A 9-year-old male admitted to the hospital with small-bowel obstruction that is resolved with conservative treatment. I discussed with the patient and his that can advance his diet to clear liquid diet. I would advance slowly. If patient is doing well by the evening, we can advance to full liquid diet. If patient is eager to discharge home, it would be okay to do so from surgery standpoint but I discussed with the patient that he should advance his diet at home slowly.
[2025-05-08] MEDS: PREGABALIN 50 MG CAPSULE PO ×2 (08:58→20:55)
--- NOTE | 2025-05-08 09:48 | PM.IMPN1 ---
Assessment and Plan Assessment and plan (1) Small bowel obstruction: Problem comment: -nicely improving. Trial of clears. Dance diet as tolerated. Likely discharge in the morning. Status: Acute (2) Parkinson disease: Problem comment: -on levodopa carbidopa and amantadine -p.o. meds restarted Status: Chronic (3) Hypothyroidism: Problem comment: -levothyroxine he restarted Status: Chronic Subjective Date Seen: 05/08/25 Interval history: Daily Progress Note - Hospital Medicine #: 3 CC: SBO, recurrent 24 HOUR UPDATE: sitting up, drinking apple juice. Talking with family. passed BM this am, no pain. still has IV fluids going at 75cc/hr NO NG tube Notable Labs, Micro, Rads, Interventions: Vitals reviewed. No fever. On room air. Blood pressure stable. Less tachycardia. Pulse currently 82. CBC reviewed. White blood cell count down trending. Sodium 134. Otherwise chemistries are normal. Overnight RN: Pt rested well this night. Had one large BM for the previous nurse. No N/V. Afebrile. Reporting zero pain. Objective: Vitals: see above Lungs: Clear. Cardiac: S1S2. Disposition/Potential discharge - Discharge tomorrow Today I spent 50minutes seeing the patient, reviewing Expanse and EPIC notes/diagnostics, discussing the care plan with our care time that includes social work, PT/OT, pharmacy, RT, retirement and documenting my impressions and plan in the medical record. Exam Const: Vital Signs, click to edit/add: Vital Signs - 24 hr 05/07/25 11:00 05/07/25 15:00 05/07/25 15:00 Temperature 97.7 F 97.6 F Pulse Rate Pulse Rate [Right Pulse Oximeter] 110 H 102 H 102 H Respiratory Rate 16 20 20 Blood Pressure [Le ft Arm] 141/87 H Blood Pressure [Ri ght Arm] 141/93 H Pulse Oximetry 97 97 Oxygen Delivery Me thod Room Air Room Air 05/07/25 15:00 05/07/25 20:24 05/07/25 22:38 Temperature 98.4 F Pulse Rate 103 H 109 H Pulse Rate [Right Pulse Oximeter] 108 H Respiratory Rate 16 Blood Pressure [Le ft Arm] Blood Pressure [Ri ght Arm] 141/91 H Pulse Oximetry 97 Oxygen Delivery Me thod Room Air 07/24/25 22:52 05/07/25 22:59 05/07/25 23:04 Temperature 98.4 F 98.4 F Pulse Rate Pulse Rate [Right Pulse Oximeter] 86 86 Respiratory Rate 16 16 Blood Pressure [Le ft Arm] 136/95 H Blood Pressure [Ri ght Arm] Pulse Oximetry 96 Oxygen Delivery Me thod Room Air 05/08/25 02:55 05/08/25 07:00 05/08/25 07:00 Temperature 98.4 F 97.9 F Pulse Rate 77 Pulse Rate [Right Pulse Oximeter] 82 Respiratory Rate 16 14 Blood Pressure [Le ft Arm] 114/81 121/78 Blood Pressure [Ri ght Arm] Pulse Oximetry 94 96 Oxygen Delivery Me thod Room Air Room Air 05/08/25 07:00 Temperature Pulse Rate Pulse Rate [Right Pulse Oximeter] 82 Respiratory Rate 14 Blood Pressure [Le ft Arm] Blood Pressure [Ri ght Arm] Pulse Oximetry Oxygen Delivery Me thod Labs Labs: Laboratory Results - last 24 hr 05/06/25 05/08/25 15:40 06:15 WBC 7.77 RBC 3.99 L Hgb 12.8 L Hct 38.8 MCV 97 MCH 32 MCHC 33 Plt Count 212 Sodium 134 L Potassium 3.8 Chloride 103 Carbon Dioxide 29 Anion Gap 2 L BUN 15 Creatinine 0.8 Estimated Creat Clear 50.35 Estimated GFR 86 Glucose 76 Calcium 9.0 POC Creatinine Cancelled
[2025-05-08] MEDS: OMEPRAZOLE 20 MG CAPSULE DR PO (10:36)
--- NOTE | 2025-05-08 15:28 | PC.NURSE ---
[id number]: Pt AOX4. Pt. is pleasant & cooperative. Makes needs known. Pt. up & amb hallway X1 w/ YVAN. Pt. has flatus, but no BM this shift. Pt. tolerating clear liquid diet well. Medication and diet education provided. Family bedside in AM & supportive. Pt. resting comfortably w/ call light w/in reach.
--- NOTE | 2025-05-08 19:27 | PC.NURSE ---
Nursing Care Hours: [id number] Pt this shift calm and cooperative. Alert and oriented. No c/o pain. Tolerating full liquid diet, saline lock IV. Pt walking with cane independently in the hwang, stable gait. VSS.
[2025-05-08] MEDS: LATANOPROST 0.005% OPHTH 1 DROP EYE-BOTH (20:54)
[2025-05-09 03:00] VITALS: BP 129/82; PULSE 74; RESP 16; TEMP 36.8; O2SAT 96
[2025-05-09] MEDS: LEVOTHYROXINE 25 MCG TABLET PO (06:13)
--- NOTE | 2025-05-09 06:19 | PC.NURSE ---
Pt pleasant, alert and oriented.?VSS. Pt stated flatus, though no bm. Bowel sounds active. Abdomen slightly distended and non-tender to touch. Denied pain. Tele reads NSR. Up SBA or independently, tolerated well. Pt in bed, appears to be resting, call light within reach.? ?
[2025-05-09 06:26] LABS: Chloride* 104 mmol/L (96-114); Potassium* 3.8 mmol/L (3.6-5.1); Sodium* 136 mmol/L (135-149)
[2025-05-09 06:29] LABS: Anion Gap 4 mEq/L (7-15); Blood Urea Nitrogen* 11 mg/dL (7-30); Carbon Dioxide* 28 mmol/L (20-32); Creatinine* 0.7 mg/dL (0.5-1.5); Est. Creatinine Clearance* 50.35; Estimated Glomerular Filt Rate 89 ml/min
[2025-05-09 06:30] LABS: Calcium* 8.9 mg/dL (8.4-10.6); Glucose* 78 mg/dL (60-115)
[2025-05-09 07:00] VITALS: BP 119/71; PULSE 63; RESP 16; TEMP 36.6; O2SAT 96
[2025-05-09 07:30] VITALS: PULSE 71
[2025-05-09] MEDS: OMEPRAZOLE 20 MG CAPSULE DR PO (09:51)
[2025-05-09] MEDS: DULOXETINE 30 MG CAPSULE DR 60 MG PO (09:51)
[2025-05-09] MEDS: CARBIDOPA-LEVODOPA 25-100 TABLET 1 TAB PO (09:52)
[2025-05-09] MEDS: TAMSULOSIN HCL 0.4 MG CAPSULE PO (09:52)
[2025-05-09] MEDS: PREGABALIN 50 MG CAPSULE PO (09:54)
--- NOTE | 2025-05-09 12:57 | PC.NURSE ---
Pt alert & oriented. VSS and pt reports no pain. Pt up independently. at bedside. Removed pt tele. Removed IV catheter tip intact. Pt had bowel movement after suppository.
--- NOTE | 2025-05-09 15:17 | P.DS_ITS ---
DS: Providers Provider Date Seen: 05/09/25 Date of admission: 05/06/25 18:55 Primary care physician: Fito Young MD Admitting Clinician: Luz Luu MD Consults: 05/06/25 18:56 Consult to Occupational Therapy [CONS] Routine Comment: Reason(s) for OT Consult:: Evaluate and Treat Any Restrictions?:: No Restrictions Consult to Physical Therapy [CONS] Routine Comment: Reason(s) for PT Consult:: Evaluate and Treat Any Restrictions?:: No Restrictions Consult to Physician [CONS] Urgent Comment: Consulting Provider: Taniya Perez Has provider been notified: Yes Consult to Animal Warden [CONS] Routine Comment: Reason for Consult:: Discharge Planning Needs Attending Physician on discharge: Tiana Bailey MD [facility] Date of Discharge: 05/09/25 DS: Diagnosis Discharge Diagnosis (1) Small bowel obstruction: Status: Acute Problem details: -resolved. Meeting discharge criteria morning of 05/09/2025. (2) Parkinson disease: Status: Chronic Problem details: -on levodopa carbidopa and amantadine -p.o. meds restarted (3) Hypothyroidism: Status: Chronic Problem details: -levothyroxine he restarted (4) Ulcerative colitis: Status: Chronic Problem details: follows with [facility]: per record, in deep remission intermittently has been on mesalamine (5) Depressive disorder: Status: Chronic Problem details: on cymbalta (6) Chronic pain: Status: Acute Problem details: -norco, lyrica (7) Constipation by delayed colonic transit: Status: Acute Problem details: Follows with [facility]; Tiffanie cobian -chronic opiods for spinal stenosis DS: Summary Hospital Course Hospital Course: FINAL DIAGNOSIS/FOLLOW UP ISSUES: 1. Small-bowel obstruction. Conservatively treated. Nasogastric decompression was only used for a few hours before patient self DC. Advanced diet 05/08. Meeting discharge criteria by 05/09. He has had multiple small-bowel obstructions over the years. General surgery and hospitalist discussed with Cesar in his family about an exploratory laparotomy for more of a permanent resolution to these repeated insults. The family and Cesar were very clear that they do not want surgical intervention at this point. 2. The rest of his chronic medical conditions were stable. BRIEF HOSPITAL COURSE: Patient was admitted for 4 days. Synopsis of acute inpatient issues are outlined above. Chronic medical conditions with notable findings outlined above. He responded well to conservative treatments. He discharged on the tolerating a regular diet. He was able to walk without discomfort. He passed gas and stool prior to discharge. DISCHARGE MEDICATIONS: See Reconciled list - SIGNIFICANT CHANGES: I added Zoan as a p.r.n. to help him home with this reoccurs. Specific instructions to the patient and follow-up are outlined below. REVIEW OF SYSTEMS No new chest pain or dyspnea Pain controlled No voiding difficulties Tolerating diet challenge PHYSICAL EXAM: CONSTITUTIONAL: Conversive, good historian. A/O. Knows setting and context. GENERAL: Well-developed and above ideal body weight, in no respiratory distress. VITAL SIGNS: see record. HEENT: Sclerae are anicteric. No petechiae. CARDIAC: rhythm is regular. There is no S3 or rub. No harsh murmurs. Extremities show trace edema with symmetrical pulses. PULM: good air entry with no wheeze. NEURO: Speech is fluent. A brief neurologic exam is negative. SKIN: No rashes, petechiae, concerning changes PSYCHIATRIC: Euthymic. DISPOSITION: Home with Time spent on discharge 37 minutes. Status at Discharge Overall status at discharge: patient is progressing back to baseline Time Spent with Patient Time attestation: Total time spent providing and/or coordinating discharge services: Time spent: Greater than 30 minutes Exam Const: Vital Signs, click to edit/add: Vital Signs - 24 hr 05/08/25 19:00 05/08/25 23:00 05/08/25 23:22 Temperature 97.6 F Pulse Rate 73 Pulse Rate [Right Pulse Oximeter] 77 77 Respiratory Rate 18 18 Blood Pressure [Le ft Arm] Blood Pressure [Ri ght Arm] 124/72 Pulse Oximetry 96 Oxygen Delivery Me thod Room Air Oxygen Flow Rate 05/08/25 23:22 05/09/25 03:00 05/09/25 07:00 Temperature 97.9 F 98.2 F Pulse Rate Pulse Rate [Right Pulse Oximeter] 70 74 63 Respiratory Rate 18 16 16 Blood Pressure [Le ft Arm] 126/68 129/82 Blood Pressure [Ri ght Arm] Pulse Oximetry 94 96 Oxygen Delivery Me thod Room Air Room Air Oxygen Flow Rate 05/09/25 07:00 05/09/25 07:30 Temperature 98 F Pulse Rate 71 Pulse Rate [Right Pulse Oximeter] 63 Respiratory Rate 16 Blood Pressure [Le ft Arm] 119/71 Blood Pressure [Ri ght Arm] Pulse Oximetry 96 Oxygen Delivery Me thod Room Air Oxygen Flow Rate 2 DS: Data Data Completed and Pending Labs on day of discharge: Labs from last 24 hours 05/09/25 05:51 Sodium 136 Potassium 3.8 Chloride 104 Carbon Dioxide 28 Anion Gap 4 L BUN 11 Creatinine 0.7 Estimated Creat Clear 50.35 Estimated GFR 89 Glucose 78 Calcium 8.9 Discharge Plan Discharge Disposition: Home, Self-Care Date of Admission: 05/06/25 18:55 Attending Provider on Discharge: Tiana Bailey Consulting Providers: Taniya Perez Primary Care Provider: Fito Young Condition: Improved Anticipated Discharge Date/Time: 05/09/25 09:08 Discharge Medications: New ondansetron 4 mg Tablet,Disintegrating 4 mg PO Q6H PRNQty: 30 0RF Continued duloxetine [Cymbalta] 60 mg capsule,delayed release(DR/EC) 60 mg PO QDAY Qty: 90 3RF tamsulosin 0.4 mg capsule 0.4 mg PO DAILY Qty: 90 3RF latanoprost 0.005 % drops 1 drp ophthalmic (eye) HS Alive Calcium-Vitamin D3 260 mg calcium- 25 mcg-50 mg tablet,chewable 1 tab PO QDAY mupirocin 2 % ointment 1 applic topical TID Qty: 15 0RF levothyroxine 25 mcg tablet 25 mcg PO DAILY Qty: 90 3RF Linzess 145 mcg capsule 145 mcg PO QAM Qty: 90 3RF amantadine HCl 100 mg capsule 100 mg PO QDAY carbidopa-levodopa 25-100 mg tablet 1 tab PO 3XD omeprazole 20 mg capsule,delayed release(DR/EC) 20 mg PO QDAY Qty: 90 0RF hydrocodone-acetaminophen 5-325 mg tablet 1 tab PO Q4-6H PRN (Reason: pain) mesalamine [Pentasa] 500 mg capsule, extended release 2,000 mg PO DAILY Movantik 25 mg tablet 25 mg PO QAM Rx Instructions: must be taken on empty stomach; no food 1 hr after or 2-3 hrs before dose budesonide-formoterol [Symbicort] 80-4.5 mcg/actuation HFA aerosol inhaler 2 puff inhalation BID PRN (Reason: Reactive airways) Qty: 10.2 9RF pregabalin [Lyrica] 50 mg capsule 50 mg PO BID Qty: 180 1RF Discharge Orders: Discharge Order (Routine); Ordered 05/09/25 Ordered By: Tiana Bailey Patient Education: Ondansetron (By mouth), Bowel Obstruction (DC) Activity Level: Activity as Tolerated Discharge Diet: High Fiber Follow Up Appointments: Fito Young MD [Primary Care Provider, Family Practice] - 06/04/25 8:15 am Referral Note: [facility] for hospital follow-up. Forms: Wrapp Info Instructions
== END 2025-05-09 11:38 | disposition home or self-care (01) | DRG 389 ==
LOC: ED 16:26 → MEDSURG 18:55
PROVIDERS: Emergency Medicine; Family Medicine; Admitting Provider Student in an Organized Health Care Education/Training Program; Emergency Provider Family Medicine; PCP Family Medicine; Visit Provider Student in an Organized Health Care Education/Training Program
DX: K56.609 Unspecified intestinal obstruction, unspecified as to partial versus complete obstruction (principal); K51.90 Ulcerative colitis, unspecified, without complications; K59.01 Slow transit constipation; G20.A1 Parkinson's disease without dyskinesia, without mention of fluctuations; G90.89 Other disorders of autonomic nervous system; G89.29 Other chronic pain; Z91.199 Patient's noncompliance with other medical treatment and regimen due to unspecified reason; E03.9 Hypothyroidism, unspecified; J45.909 Unspecified asthma, uncomplicated; R13.12 Dysphagia, oropharyngeal phase; N40.1 Benign prostatic hyperplasia with lower urinary tract symptoms; R35.1 Nocturia; F32.A Depression, unspecified
CPT/HCPCS: 36415; 74018; 74177; 80048; 80053; 80076; 82150; 82565; 83605; 83690; 83735; 85025; 85027; 86140; 94761; 97161; 97165; 97535; 99285; A9270; J1171; J2060; J2270; J2405; J7030; Q9967

== ENCOUNTER 2025-06-04 08:38 | Outpatient (CLI) | payer MEDICARE, OTHER, SELFPAY | END 2025-06-04 08:39 | disposition home or self-care (01) | LOC: LKVREF 08:39 | PROVIDERS: PCP Family Medicine; Visit Provider Family Medicine | DX: E03.9 Hypothyroidism, unspecified (principal) | CPT/HCPCS: 84443 ==

== ENCOUNTER 2025-07-31 14:12 | Outpatient (CLI) | payer MEDICARE, OTHER, SELFPAY | END 2025-07-31 14:13 | disposition home or self-care (01) | LOC: LKVREF 14:15 | PROVIDERS: PCP Family Medicine; Visit Provider Family Medicine | DX: D64.9 Anemia, unspecified (principal); N40.1 Benign prostatic hyperplasia with lower urinary tract symptoms; R35.1 Nocturia | CPT/HCPCS: G0103 ==

== ENCOUNTER 2025-10-14 08:44 | Outpatient (CLI) | payer MEDICARE, OTHER, SELFPAY ==
--- NOTE | 2025-11-03 12:04 | W.PM.SLEEP ---
Sleep Study Details Details Interpreting Provider: Tahir Date of Sleep Study: 10/14/25 Sleep Study Details: STUDY TYPE:? Home unattended ? BMI:? 24.6 ORDERING PROVIDER:? Hannah INDICATION:? Concern for sleep apnea ? SLEEP SUMMARY:? 382 minutes monitor RESPIRATORY SUMMARY:? AHI 12.3 per CMS guideline, 15.6 per rule 1A Low oxygen 84 1.5% of study oxygen less than 90% Snoring 86.1% PERIODIC LIMB MOVEMENTS OF SLEEP:? Not recorded CARDIAC:? Range 69-104, mean 75.7 beats per minute IMPRESSION:? Mild obstructive sleep apnea RECOMMENDATION: Treatment options include CPAP dental appliance and/or airway expansion surgery. CPAP is favored modality of treatment.
== END 2025-10-14 08:45 | disposition home or self-care (01) ==
LOC: SLEEP 08:44
PROVIDERS: PCP Family Medicine; Visit Provider Family Medicine
DX: G47.33 Obstructive sleep apnea (adult) (pediatric) (principal)
CPT/HCPCS: 95806